=== PATIENT | male | born 1945 | race African-American/Black ===

== ENCOUNTER 2024-11-13 09:52 | Outpatient (REF) | payer OTHER, SELFPAY ==
--- OUTSIDE RECORDS SUMMARY | 2024-11-13 10:35 | XMS_ITS | Encounter Summary ---
Author Organization [employer] Address [address] [place] [address] Care Team Providers Care Retort Furnace Operator Name Role Phone Pastora Salazar DO Primary Care Provider [phone] Encounter Details Date Type Department Care Team (Latest Contact Info) Description 11/13/2024 Travel Social History Tobacco Use Types Packs/Day Years Used Date Smoking Tobacco: Never Smokeless Tobacco: Never Alcohol Use Standard Drinks/Week Comments Never 0 (1 standard drink = 0.6 oz pur e alcohol) Depression Answer Date Recorded Patient Health Questionnaire-9 Score 5 11/13/2024 Patient Health Questionnaire-9 Score 5 11/13/2024 Last PHQ-9: Questionnaire Data Not on file 0 11/13/2024 Housing Stability Answer Date Recorded What is your housing situation today? I have marino guadalupe 11/04/[address] you li ve. Do you have problems with any of the following? Pests such as bugs, ants, or mice 11/04/2024 Food Insecurity Answer Date Recorded Within the past 12 months, y ou worried that your food would run out before you got money to buy more: Often true 11/04/2024 Within the past 12 months,th e food you bought just didn't last and you didn't have enough money to get more: Often true Transportation Answer Date Recorded In the past 12 months, has l ack of transportation kept you from medical appts, meetings, work or from getting things needed for daily living? No 11/04/2024 Utilities Answer Date Recorded In the past 12 months, has t he electric, gas, oil or water company threatened to shut off services in your home? No 11/04/2024 Depression Answer Date Recorded Patient Health Questionnaire-2 Score 2 11/13/2024 Internet Access Answer Date Recorded Internet Access Q1 Yes 11/04/2024 Internet Access Q2 Not on file 11/04/2024 Comments Unknown Sex and Gender Information Value Date Recorded Sex Assigned at Unknown 11/12/2024 8:12 AM EDT Legal Sex Male 3:20 PM EDT Gender Identity Male 11/13/2024 9:06 AM EDT Sexual Orientation Don't know 11/13/2024 9: 06 AM EDT Sexual Orientation Straight 11/13/2024 9: 06 AM EDT documented as of this encounter Functional Status * Over the past 2 weeks, how often have you been bothered by any of the following problems? Question Answer Date of Assessment Author Patient Health Questionnaire -2 Score 2 11/13/2024 9:09 AM EDT Prsica Fernandez MA * Little interest or pleasure in doing things Answer Date of Assessment Author Several days 11/13/2024 9:09 AM EDT Abi Fernandez MA * Feeling down, depressed, or hopeless Answer Date of Assessment Author Several days 11/13/2024 9:09 AM MICHELLT Abi Fernandez MA * Trouble falling or staying asleep, or sleeping too much Answer Date of Assessment Author Not at all 11/13/2024 9:09 AM Abi Hsu MA * Feeling tired or having little energy Answer Date of Assessment Author Several days 11/13/2024 9:09 AM Abi Hsu MA * Poor appetite or overeating Answer Date of Assessment Author Not at all 11/13/2024 9:09 AM Abi Hsu MA * Feeling bad about yourself - or that you are a failure or have let yourself or your family down Answer Date of Assessment Author Not at all 11/13/2024 9:09 AM Abi Hsu MA * Trouble concentrating on things, such as reading the newspaper or watching television Answer Date of Assessment Author Several days 11/13/2024 9:09 AM Abi Hsu MA * Moving or speaking so slowly that other people could have noticed? Or the opposite - being so fidgety or restless that you have been moving around a lot more than usual. Answer Date of Assessment Author Several days 11/13/2024 9:09 AM EDT Abi Fernandez MA * Thoughts that you would be better off or hurting yourself in some way Answer Date of Assessment Author Not at all 11/13/2024 9:09 AM EDT Abi Fernandez MA * Patient Health Questionnaire-9 Score Answer Date of Assessment Author 5 11/13/2024 9:09 AM EDT Abi Fernandez MA * How difficult have these problems made it for you to do your work, take care of things at home, or get along with other people? Answer Date of Assessment Author Not difficult at all 11/13/2024 9:09 AM EDT Prisca Vick MA * Over the last 2 weeks, how often have you been bothered by any of the following problems? Question Answer Date of Assessment Author Feeling nervous, anxious, or on edge 1 11/13/2024 9:09 AM EDT Prisca Fernandez MA Not being able to stop or co ntrol worrying 0 11/13/2024 9:09 AM EDT Prisca Fernandez MA Worrying too much about diff erent things 1 11/13/2024 9:09 AM MICHELLT Prisca Fernandez MA Trouble relaxing 0 11/13/2024 9:09 AM EDT Prisca Hubbard MA Being so restless that it is hard to sit still 0 11/13/2024 9:09 AM MICHELLT Prisca Fernandez MA Becoming easily annoyed or irritable 0 11/13/2024 9:09 AM EDT Prisca Fernandez MA Feeling afraid as if somethi ng awful might happen 0 11/13/2024 9:09 AM MICHELLT Prisca Fernandez MA CYNTHIA-7 Total Score 2 11/13/2024 9:09 AM MICHELLT Prisca Fernandez MA documented as of this encounter Plan of Treatment Not on file documented as of this encounter Visit Diagnoses Not on filedocumented in this encounter Additional Health Concerns Assessment Noted Time PHQ-9 Depression Total Score: 5 11/14/19 25 9:09 AM EDT documented as of this encounter Care Teams Retort Furnace Operator Relationship Specialty Start Date End Date Pastora Salazar DO [address] [place] [id number] PCP - General Family Medicine 11/13/24 documented as of this encounter
--- OUTSIDE RECORDS SUMMARY | 2024-11-13 10:35 | XMS_ITS | Clinical Summary ---
Author Organization [facility] Address [address] [place] [address] Phone Care Team Providers Care Retail Greeting Card Merchandiser Name Role Phone Aubrie Simmons MD Primary Care Provider [phone] Allergies No known active allergies Medications aspirin 81 mg EC tablet Take 1 tablet (81 mg total) by mouth daily. Active atorvastatin (LIPITOR) 80 mg tablet Take 1 tablet (80 mg total) by mouth at bedtime. 12/21/19 22 Active Trulicity 0.75 mg/0.5 mL pen injector injection Inject 0.5 mL (0.75 mg total) under the skin 1 (one) time per week. 03/13/20 24 Active metFORMIN (GLUCOPHAGE) 1,000 mg tablet Take 1 tablet (1,000 mg total) by mouth 1 (one) time each day with breakfast. TAKE 1000 MG IN THE MORNING WITH BREAKFAST AND 500 MG IN THE EVENING WITH DINNER 01/20/20 24 Active mirtazapine (REMERON) 15 mg tablet Take 1 tablet (15 mg total) by mouth at bedtime. 01/28/20 24 Active ferrous sulfate 325 mg (65 mg iron) EC tablet Take 1 tablet (325 mg total) by mouth 1 (one) time each day with breakfast. Do not crush, chew, or split. 90 each 1 06/10/19 25 026 Active amLODIPine (NORVASC) 5 mg tablet Take 2 tablets (10 mg total) by mouth 1 (one) time each day. 180 each 3 06/10/19 25 026 Active carvediloL (COREG) 3.125 mg tablet Take 2 tablets (6.25 mg total) by mouth 2 (two) times a day with meals. 180 each 1 11/13/19 25 026 Active metFORMIN (GLUCOPHAGE) 500 mg tablet Take 1 tablet (500 mg total) by mouth 1 (one) time each day in the evening. 025 Discontinued ibuprofen (ADVIL,MOTRIN) 200 mg tablet Take 1 tablet (200 mg total) by mouth every 6 (six) hours if needed. 025 Discontinued carvediloL (COREG) 3.125 mg tablet Take 1 tablet (3.125 mg total) by mouth 2 (two) times a day with meals. 180 each 1 09/10/19 25 025 Discontinued Active Problems Problem Noted Date Diagnosed Date Acute kidney injury superimposed on CKD ([facility] V24) 04/18/2024 Chest pain 04/04/2024 Assessment & Plan (04/05/2024 5:45 PM EST): Patient has a history of coronary disease however, this pain sounds fairly atypical. I have lower suspicion that this is truly cardiac in nature however given his history I think it is reasonable to keep him for definitive inpatient stress testing on Monday. If he continues to have more severe episodes till then, you could consider further investigation with diagnostic cath. As previously mentioned, ECG showed evidence of the old IL but no acute changes. It is especially reassuring that he has had 2 negative high-sensitivity troponins. In reviewing his history, it almost sounds as though this may be a presentation of a migraine more than anything. If cardiac testing is negative, could consider neurology referral as an outpatient for headache management. Chronic coronary artery disease 04/04/2024 Overview (06/10/2024): - ST elevation IL apparently in 2019; 80% distal left circumflex stenosis noted on cardiac cath in 2019 in the [place] - Repeat cath performed in 2020 at [facility] showing no changes -Recent hospitalization at [facility] in late March into early April where Dr Jones saw him in consultation. He ruled out with serial cardiac enzymes. -Status post inpatient restratification pharmacologic nuclear stress test showed normal myocardial perfusion without evidence of ischemia or infarction, normal left ventricular systolic function and regional wall motion with an ejection fraction of 65% -Echocardiogram during that hospitalization on 04/05/2024 showed mild, concentric left ventricular hypertrophy with normal cavity size and systolic function, normal regional wall motion with an ejection fraction of 60 to 65%, normal RV size and systolic function, no hemodynamically significant valve disease -On 05/2024 the patient underwent carotid ultrasounds. In the right there is arthrosclerotic plaque in the carotid system. But there is less than 50% stenosis in the internal carotid artery based on Doppler. The subclavian artery has normal Doppler flow. The vertebral artery has normal Doppler antegrade flow. On the left there is arthrosclerotic plaque in the carotid system as noted above. There is less than 50% stenosis in the internal carotid artery based on Doppler. The subclavian artery has normal Doppler flow pattern. The vertebral artery has normal antegrade flow. Assessment & Plan (09/09/2024 9:37 AM EDT): Patient should continue on baby aspirin, high dose of atorvastatin, low-dose beta-vero. Instructed to call 911 or go to the emergency room should the patient begin to experience chest pain or pressure lasting greater than 10 minutes does not resolve with rest. Assessment & Plan (06/10/2024 8:29 AM EST): Patient should continue on baby aspirin, high dose of atorvastatin, low-dose beta-vero. Instructed to call 911 or go to the emergency room should the patient begin to experience chest pain or pressure lasting greater than 10 minutes does not resolve with rest. Orders: CBC and differential; Future Basic metabolic panel; Future Assessment & Plan (05/06/2024 5:54 PM EST): Recent stress testing in the hospital was very reassuring. As such, we will not pursue any further testing. Patient is not having anginal symptoms with his usual activities. Medication adjustments as above. Continue high-dose statin, aspirin. Assessment & Plan (04/05/2024 5:44 PM EST): Agree with inpatient pharmacologic nuclear stress test. Will plan to do an echocardiogram to assess wall motion and EF on Monday. For now, continue aspirin, high-dose statin, Imdur, carvedilol at current doses. Essential hypertension 04/04/2024 Assessment & Plan (09/09/2024 9:37 AM EDT): Blood pressure is well-controlled the appointment today. I want him to continue taking measurements at home as he continues to have orthostatic hypotension. Assessment & Plan (06/10/2024 8:29 AM EST): I am going to be reducing the patient's carvedilol dosage down to 6.25 mg p.o. twice daily. I am going to be increasing the amlodipine dosage from 5 mg to 10 mg p.o. daily. I would like the patient to take blood pressure measurements at home record them and get back to the office. If patient still hypertensive can look to add in valsartan. Educated on the importance of diet lifestyle to help further assist in reducing blood pressure. The patient was encouraged to follow low-salt low-fat diet, make purposeful strides towards weight loss, and engage in routine aerobic exercise as tolerated. Orders: CBC and differential; Future Basic metabolic panel; Future Assessment & Plan (05/06/2024 5:54 PM EST): See management above. Assessment & Plan (04/05/2024 5:45 PM EST): Reasonably controlled and frankly may have to have more liberal targets in light of coexisting orthostasis. Consider use of compression stockings upon discharge. Hyperlipidemia 04/04/2024 Assessment & Plan (09/09/2024 9:37 AM EDT): Continue on statin. Updating a lipid panel. Orders: Lipid panel; Future Orthostatic hypotension 04/04/2024 Assessment & Plan (09/09/2024 9:37 AM EDT): Reducing carvedilol down to 3.125 mg p.o. twice daily. I would like the patient to continue to stay hydrated, focus on lower body exercises, utilize compression stockings, and change positions slowly. Assessment & Plan (06/10/2024 8:29 AM EST): Instructed patient to continue to utilize compression stockings as he has. Do some lower body exercises he is able to tolerate. Going to be reducing the carvedilol dosage down to 6.25 mg p.o. daily, will also increase the amlodipine from 5 to 10 mg p.o. daily. In addition the patient is anemic, I am going to be start him on ferrous sulfate 325 mg tablet, with a CBC drawn in 2 months. Orders: CBC and differential; Future Basic metabolic panel; Future Assessment & Plan (05/06/2024 5:54 PM EST): Associated as well with supine hypertension. Again, I took time to reset expectations. Unfortunately, I explained that this condition is quite common in the elderly-especially those with a history of diabetes and supine hypertension. Furthermore, it can be incredibly difficult to treat given that we are stuck between 2 opposite extremes. My goal is to avoid extremes on either end. It is unclear why most recent hospital medication changes were made. Typically the agents that are best tolerated with orthostasis are calcium channel blockers and ARB's. Unfortunately, these were the 2 agents that were discontinued while keeping Imdur and carvedilol which can often exacerbate orthostasis. I would like to try to get him on the previous agents that he was on. I am discontinuing Imdur and starting him back on amlodipine 5 mg daily. I recommended that he and his son check his blood pressure in a resting state every day but at different times in the day. I also recommended very slow postural changes, ongoing use of compression socks and stockings. We will set him up for a very close follow-up at which point the goal will be to back down on carvedilol while simultaneously reinitiating valsartan depending on how his blood pressures and symptoms do. Assessment & Plan (04/05/2024 5:44 PM EST): Longstanding issue. I tried to set the expectation that we may not be able to fix this this hospitalization but will certainly try. Would obtain a set of orthostatic vital signs in the patient. If positive, we will need to make adjustments to his outpatient regimen. Type 2 diabetes mellitus ([facility] V24, [facility] V 28) 12/20/2017 Overview (04/04/2024): [12/20/2017] (E11.9) DIABETES MELLITUS, TYPE 2 Gastroesophageal reflux disease 03/14/2016 Overview (04/04/2024): [03/14/2016] (K21.9) GERD Resolved Problems Problem Noted Date Diagnosed Date Resolved Date Acute ST segment elevation m yocardial infarction (CMS/HCC V24, CMS/HCC V28) 03/01/2019 Overview (04/04/2024): [03/01/2019] (I21.3) Acute STEMI Systolic murmur 03/14/2016 04/05/2024 Overview (04/04/2024): [03/14/2016] (I38) Systolic murmur Encounters Date Type Department Care Team Description 11/12/2024 Telephone [facility] [address] [place] [id number] Mukund Garcia NP Fatigue (Son is calling on behalf of pt due to language barrier ) 11/06/2024 1:21 PM EDT - 11/06/2024 6:07 PM EDT Emergency [facility] [address] [place] [id number] Taras Le MD Chest pain, unspecified type (Primary Dx) Discharge Disposition: Home or Self Care 09/09/2024 7:40 AM EDT Office Visit [facility] [address] [place] [phone] Mukund Garcia NP Chronic coronary artery disease (Primary Dx); Essential hypertension; Hyperlipidemia, unspecified hyperlipidemia type; Orthostatic hypotension from Last 3 Months Surgical History Surgery Date Site/Laterality Comments RIGHT COLECTOMY Medical History Medical History Date Comments Acute ST segment elevation m yocardial infarction (CMS/HCC V24, CMS/HCC V28) 03/01/2019 [03/01/2019] (I2 1.3) Acute STEMI Chronic coronary artery disease 04/04/2024 80% distal LCx stenosis noted on cath in 2019 in the [place]. Similar findings noted on cath at [facility] in 2020 Essential hypertension 04/04/2024 Gastroesophageal reflux disease 03/14/2016 [03/14/2016] (K21.9) GERD Hyperlipidemia 04/04/2024 Orthostatic hypotension 04/04/2024 Systolic murmur 03/14/2016 [03/14/2016] (I3 8) Systolic murmur Type 2 diabetes mellitus (CM S/HCC V24, CMS/HCC V28) 12/20/2017 [12/20/2017] (E11.9) DIABETE S MELLITUS, TYPE 2 Family History Medical History Relation Name Comments Heart disease Neg Hx Social History Tobacco Use Types Packs/Day Years Used Date Smoking Tobacco: Never Smokeless Tobacco: Never Tobacco Cessation:Counseling Given: Not Answered Alcohol Use Standard Drinks/Week Comments Not Currently 0 (1 standard drink = 0.6 oz pur e alcohol) Interpersonal Safety Answer Date Record ed Physical Abuse 04/18/2024 Verbal Abuse 04/18/2024 Sex and Gender Information Value Date Recorded Sex Assigned at Male 04/04/2024 7:44 PM EST Legal Sex Male 4:35 PM EST Gender Identity Male 04/04/2024 7:44 PM EST Sexual Orientation Straight 04/04/2024 7: 44 PM EST Obstetrics History Last Filed Vital Signs Vital Sign Reading Time Taken Comments Blood Pressure 126/83 11/06/2024 12:38 PM EDT Pulse 95 11/06/2024 12:38 PM EDT Temperature 36.5 C (97.7 F) 11/06/2024 12:38 PM EDT Respiratory Rate 16 11/06/2024 12:38 PM EDT Oxygen Saturation 99% 11/06/2024 12:38 PM EDT Inhaled Oxygen Concentration - - Weight 83.9 kg (185 lb) 11/06/2024 12:38 PM EDT Height 167.6 cm (5' 6 ) 11/06/2024 12:38 PM EDT Body Mass Index 29.86 11/06/2024 12:38 PM EDT Plan of Treatment Upcoming Encounters Date Type Department Care Team (Late st Contact Info) Description 12/19/2024 9:40 AM EDT Office Visit [facility] [address] [place] [address] Mukund Garcia NP [address] [place] [address] Health Maintenance Due Date Last Done Comments Diabetes: Annual Foot Exam 1955 Diabetes: Annual Retina Eye Exam 1955 Zoster Vaccines (1 of 2) 01/31/1964 DTaP,Tdap,and Td Vaccines (2 - Td or Tdap) 01/21/2019 01/21/2009 RSV Immunization Adult Patients (1 - 1-dose 75+ series) 01/31/2020 COVID-19 Vaccine ( - season) 2024 04/20/2022, 04/07/2021, 07/08/2020, Additional history exists Depression Screening 04/04/2024 Diabetes: Annual Urine Albumin-Creatinine Ratio (uACR) 04/04/2024 Hepatitis C Screening 04/04/2024 Medicare Annual Wellness Visit 04/04/2024 Social Influencers of Health Screening 04/04/2024 Diabetes: Blood Sugar Control Test (HGBA1C) 10/02/2024 04/04/2024 Influenza Vaccine (#1) 2025 , 02/16/2021, 03/27/2020, Additional history exists Falls Risk Assessment 04/20/2025 04/20/2024 Diabetes: Annual GFR (Glomerular Filtration Rate) 11/06/2025 11/06/2024, 06/20/2024, 04/20/2024, Additional history exists Hypertension/CHF/CAD Annual BMP Blood Test 11/06/2025 11/06/2024, 06/20/2024, 04/20/2024, Additional history exists Cholesterol Screening (Lipid Panel) 04/05/2029 04/05/2024 Pneumococcal Vaccine: 50+ Years Completed 04/06/2015, 03/01/2010 Hepatitis B Vaccines Completed 02/23/2016, 10/02/2015, 02/11/2015 HIB Vaccines Aged Out No longer eligi ble based on patient's age to complete this topic HPV Vaccines Aged Out No longer eligi ble based on patient's age to complete this topic Hepatitis A Vaccines Aged Out No long er eligible based on patient's age to complete this topic IPV Vaccines Aged Out No longer eligi ble based on patient's age to complete this topic MMR Vaccines Aged Out No longer eligi ble based on patient's age to complete this topic Meningococcal ACWY Vaccine Aged Out N o longer eligible based on patient's age to complete this topic Meningococcal B Vaccine Aged Out No l onger eligible based on patient's age to complete this topic RSV Immunization Patients Under 20 months Aged Out No longer eligible based on patient's age to complete this topic Varicella Vaccines Aged Out No longer eligible based on patient's age to complete this topic Procedures Procedure Name Priority Date/Time Associated Diagnosis Comments ECG ANNOTATED 11/07/2024 ECG ANNOTATED 11/07/2024 HUA URINE CULTURE TUBE STAT 11/06/2024 2:50 PM EDT URINALYSIS WITH REFLEX MICROSCOPIC AND CULTURE STAT 11/06/2024 2:50 PM EDT URINALYSIS WITH REFLEX MICROSCOPIC AND CULTURE STAT 11/06/2024 2:[address] ANGIO CHEST/ABDOMEN/PELVIS WO AND/OR W CONTRAST STAT 11/06/2024 2:39 PM EDT Chest pain, unspecified type CT HEAD WO CONTRAST STAT 11/06/2024 2 :39 PM EDT TROPONIN I HIGH SENSITIVITY STAT 11/06/2024 2:21 PM EDT ECG 12-LEAD STAT 11/06/2024 2:00 PM EDT XR CHEST 2 VIEWS STAT 11/06/2024 1:52 PM EDT CBC WITH AUTO DIFFERENTIAL STAT 11/06/2024 12:58 PM EDT B-TYPE NATRIURETIC PEPTIDE STAT 11/06/2024 12:58 PM EDT MAGNESIUM STAT 11/06/2024 12:58 PM EDT LIPASE STAT 11/06/2024 12:58 PM EDT COMPREHENSIVE METABOLIC PANEL STAT 11/06/2024 12:58 PM EDT CBC AND DIFFERENTIAL STAT 11/06/2024 12:58 PM EDT TROPONIN I HIGH SENSITIVITY STAT 11/06/2024 12:58 PM EDT ECG 12-LEAD STAT 11/06/2024 12:54 PM EDT LIPID PANEL WITH REFLEX TO DIRECT LDL Routine 04/05/2024 5:04 AM EST HEMOGLOBIN A1C Add-On 04/04/2024 4:59 PM EST from Last 3 Months or Most Recently Relevant to Health Maintenance Results * ECG-Annotated (11/07/2024) Only the most recent of2 resultswithin the time period is included. us Provider Onbase MD ECG ORDERABLES Final Result * Urinalysis with reflex microscopic and culture (11/06/2024 2:50 PM EDT) Specific [place] Urine 1.013 1.003 - 1.030 LAB URINALYSIS - AUTOMATED METHOD 11/06/2024 3:[address] [facility] pH, Urine 6.0 5.0 - 8.0 pH LAB URINALYSIS - AUTOMATED METHOD 11/06/2024 3:[address] [facility] Leukocytes, Urine Negative Negative LAB URINALYSIS - AUTOMATED METHOD 11/06/2024 3:[address] [facility] Nitrite, Urine Negative Negative LAB URINALYSIS - AUTOMATED METHOD 11/06/2024 3:[address] [facility] Protein, Urine Negative <=Trace mg/dL LAB URINALYSIS - AUTOMATED METHOD 11/06/2024 3:[address] [facility] Glucose, Urine Negative Negative mg/dL LAB URINALYSIS - AUTOMATED METHOD 11/06/2024 3:[address] [facility] Ketones, Urine Negative Negative mg/dL LAB URINALYSIS - AUTOMATED METHOD 11/06/2024 3:[address] [facility] Urobilinogen, Urine 0.2 0.2 - 1.0 mg/dL LAB URINALYSIS - AUTOMATED METHOD 11/06/2024 3:[address] [facility] Bilirubin, Urine Negative Negative LAB URINALYSIS - AUTOMATED METHOD 11/06/2024 3:[address] [facility] Blood, Urine Negative Negative LAB URINALYSIS - AUTOMATED METHOD 11/06/2024 3:[address] [facility] Urine Urine specimen obtained by clean catch procedure / Unknown Non-blood Collection / Unknown 11/06/2024 2:50 PM EDT 11/06/2024 3:09 PM EDT us Tarasazar Le MD LAB URINE ORDERABLES Final Resu lt Performing Organization Address City/[facility]/ZIP Co de Phone Number [facility] [address] [place] [address], [place] [phone] * Hua urine culture tube (11/06/2024 2:50 PM EDT) Extra Tube Hold for add-ons. 11/06/2024 5:[address] [facility] Comment:Auto resulted. Urine Urine specimen obtained by clean catch procedure / Unknown Non-blood Collection / Unknown 11/06/2024 2:50 PM EDT 11/06/2024 3:09 PM EDT us Tarasazar Le MD LAB URINE ORDERABLES Final Resu lt Performing Organization Address [facility]/ZIP Co de Phone Number [facility] [address] [place], [place] [id number] [phone] * CT Angio Chest/Abdomen/Pelvis wo and/or w Contrast (11/06/2024 2:39 PM EDT) Anatomical Region Laterality Modality Body Computed Tomogra phy 11/06/2024 3:00 PM EDT Impressions 11/06/2024 3:11 PM EDT Impression: No aortic dissection. Incidental findings as above. -------- FINAL REPORT -------- Dictated By: Lainey Boykin Dictated Date: 11/06/2024 15:00 ET Assigned Physician: Lainey Boykin Reviewed and Electronically Signed By: Lainey Boykin Signed Date: 11/06/2024 15:11 ET Workstation ID: [id number] Transcribed By: Self Edit Transcribed Date: 11/06/2024 15:00 ET Narrative 11/06/2024 3:[address] angiography abdomen and pelvis INDICATION: Abdominal pain, aortic dissection suspected Comparison: None TECHNIQUE: CT angiography of the abdomen and pelvis following the intravenous administration of 100cc Isovue 370. Multiplanar reformats. The examination was performed utilizing dose reduction techniques. Total DLP 3178 Vasculature: Atherosclerotic plaque throughout the aorta and branch vessels but no evidence of arterial occlusion, dissection or aneurysm. Nonvascular findings: CHEST: Minimal atelectasis. No consolidation or effusion. Extensive coronary artery calcifications. No mediastinal mass. Spleen: Normal. Pancreas: Normal. Liver: Few tiny foci enhancement are nonspecific and could represent either perfusion anomalies or flash filling hemangiomas. Gallbladder/biliary: Normal. Adrenals: Normal. Kidneys: Normal. Bowel/mesentery: There is equalization of small bowel loops presumably related to stasis. Postsurgical changes of the right colon. Scattered diverticulosis without evidence for acute diverticulitis. Lymph nodes: No pathologically enlarged lymph nodes. Bladder: Mild bladder distention. Pelvic organs: Mild prostatomegaly. Osseous structures: Remote sternal fracture. Degenerative changes. Remote rib deformities. Soft Tissues: Unremarkable Procedure Note Lainey Boykin MD - 11/06/2024 CT angiography abdomen and pelvis INDICATION: Abdominal pain, aortic dissection suspected Comparison: None TECHNIQUE: CT angiography of the abdomen and pelvis following theintravenous administration of 100cc Isovue 370. Multiplanar reformats. Theexamination was performed utilizing dose reduction techniques. Total [id number] Vasculature: Atherosclerotic plaque throughout the aorta and branch vessels but noevidence of arterial occlusion, dissection or aneurysm. Nonvascular findings: CHEST: Minimal atelectasis. No consolidation or effusion. Extensivecoronary artery calcifications. No mediastinal mass. Spleen: Normal. Pancreas: Normal. Liver: Few tiny foci enhancement are nonspecific and could representeither perfusion anomalies or flash filling hemangiomas. Gallbladder/biliary: Normal. Adrenals: Normal. Kidneys: Normal. Bowel/mesentery: There is equalization of small bowel loops presumablyrelated to stasis. Postsurgical changes of the right colon. Scattereddiverticulosis without evidence for acute diverticulitis. Lymph nodes: No pathologically enlarged lymph nodes. Bladder: Mild bladder distention. Pelvic organs: Mild prostatomegaly. Osseous structures: Remote sternal fracture. Degenerative changes.Remote rib deformities. Soft Tissues: Unremarkable IMPRESSION: Impression: No aortic dissection. Incidental findings as above. -------- FINAL REPORT -------- Dictated By: Lainey Boykin Dictated Date: 11/06/2024 15:00 ET Assigned Physician: Lainey Boykin Reviewed and Electronically Signed By: Lainey Boykin Signed Date: 11/06/2024 15:11 ET Workstation ID: [id number] Transcribed By: Self Edit Transcribed Date: 11/06/2024 15:00 ET Taras Le MD IMNuha CT PROCEDURES Final Result * CT Head wo Contrast (11/06/2024 2:39 PM EDT) Anatomical Region Laterality Modality Head and Neck Computed Tomogra phy 11/06/2024 2:4 6 PM EDT Impressions 11/06/2024 3:00 PM EDT NO ACUTE INTRACRANIAL ABNORMALITY. -------- FINAL REPORT -------- Dictated By: Lainey Boykin Dictated Date: 11/06/2024 14:46 ET Assigned Physician: Lainey Boykin Reviewed and Electronically Signed By: Lainey Boykin Signed Date: 11/06/2024 15:00 ET Workstation ID: [id number] Transcribed By: Self Edit Transcribed Date: 11/06/2024 14:55 ET Narrative 11/06/2024 3:00 PM EDT PROCEDURE: HEAD CT INDICATION: Mental status change, unknown cause TECHNIQUE: CT of the head without intravenous contrast. Multiplanar reformats. The examination was performed utilizing dose reduction techniques. Total DLP 3178 COMPARISON: 06/21/2019 FINDINGS: No acute territorial infarct, mass effect, or intracranial hemorrhage. Moderate scattered periventricular and subcortical white matter hypodensities are most likely related to chronic small vessel ischemic change. CSF spaces commensurate for degree of volume loss. No hydrocephalus. Visualized paranasal sinuses are clear. Mastoid air cells are clear. No calvarial fracture. Procedure Note Lainey Boykin MD - 11/06/2024 PROCEDURE: HEAD CT INDICATION: Mental status change, unknown cause TECHNIQUE: CT of the head without intravenous contrast. Multiplanarreformats. The examination was performed utilizing dose reductiontechniques. Total DLP 3178 COMPARISON: 06/21/2019 FINDINGS: No acute territorial infarct, mass effect, or intracranial hemorrhage. Moderate scattered periventricular and subcortical white matterhypodensities are most likely related to chronic small vessel ischemicchange. CSF spaces commensurate for degree of volume loss. No hydrocephalus. Visualized paranasal sinuses are clear. Mastoid air cells are clear. No calvarial fracture. IMPRESSION: NO ACUTE INTRACRANIAL ABNORMALITY. -------- FINAL REPORT -------- Dictated By: Lainey Boykin Dictated Date: 11/06/2024 14:46 ET Assigned Physician: Lainey Boykin Reviewed and Electronically Signed By: Lainey Boykin Signed Date: 11/06/2024 15:00 ET Workstation ID: [id number] Transcribed By: Self Edit Transcribed Date: 11/06/2024 14:55 ET Taras Le MD [facility] PROCEDURES Final Result * Troponin I high sensitivity (11/06/2024 2:21 PM EDT) Only the most recent of2 resultswithin the time period is included. High Sensitivity Troponin I 6 <=79 ng/L LAB CHEMISTRY METHOD 11/06/2024 3:[address] [facility] Blood Venous blood specimen / Unknown Venipuncture / Unknown 11/06/2024 2:21 PM EDT 11/06/2024 3:10 PM EDT Narrative [facility] ([facility]) [facility] - 11/06/2024 3:54 PM EDT High levels of biotin in samples may falsely decrease hsTroponin values. Use caution when interpreting hsTroponin results in patients taking biotin who exhibit renal impairment (eGFR <60) or in patients taking more than 20 mg/day of biotin. Tarasazar Le MD LAB BLOOD ORDERABLES Final Resu lt [facility]) [facility] [address] [place] [address], [place] [phone] * ECG 12 lead (11/06/2024 2:00 PM EDT) Only the most recent of2 resultswithin the time period is included. Ventricular Rate ECG 87 BPM GEMUSE Atrial Rate 87 BPM GEMUSE P-R Interval 212 ms GEMUSE QRS Duration 80 ms GEMUSE Q-T Interval 350 ms GEMUSE QTc 421 ms GEMUSE P Wave [place] 31 degrees GEMUSE T [place] 28 degrees GEMUSE ECG Interpretation Sinus rhythm with 1st degree A-V block Inferior infarct , age undetermined When compared with ECG of 06-NOV-2024 12:54, (unconfirmed) Inferior infarct is now Present Confirmed by MEENU MONZON ([id number]) on 11/07/2024 5:40:25 AM GEMUSE 11/06/2024 2:00 PM EDT 11/07/2024 5:40 AM EDT Taras B Rey [facility] ECG ORDERABLES Final Result GEMUSE * XR Chest 2 Views (11/06/2024 1:52 PM EDT) Anatomical Region Laterality Modality Body Radiographic Suze ging 11/06/2024 2:35 PM EDT Impressions 11/06/2024 2:36 PM EDT FINDINGS/IMPRESSION: Presumed left basilar atelectasis/scarring. No consolidation or effusion. Degenerative osseous changes and remote left clavicle fracture. -------- FINAL REPORT -------- Dictated By: Lainey Boykin Dictated Date: 11/06/2024 14:35 ET Assigned Physician: Lainey Boykin Reviewed and Electronically Signed By: Lainey Byokin Signed Date: 11/06/2024 14:36 ET Workstation ID: [id number] Transcribed By: Self Edit Transcribed Date: 11/06/2024 14:35 ET Narrative 11/06/2024 2:36 PM EDT XR CHEST 2 VIEWS INDICATION: chest pain TECHNIQUE: XR CHEST 2 VIEWS COMPARISON: No priors available. Procedure Note Lainey Boykin MD - 11/06/2024 XR CHEST 2 VIEWS INDICATION: chest pain TECHNIQUE: XR CHEST 2 VIEWS COMPARISON: No priors available. IMPRESSION: FINDINGS/IMPRESSION: Presumed left basilar atelectasis/scarring. Noconsolidation or effusion. Degenerative osseous changes and remote leftclavicle fracture. -------- FINAL REPORT -------- Dictated By: Lainey Boykin Dictated Date: 11/06/2024 14:35 ET Assigned Physician: Lainey Boykin Reviewed and Electronically Signed By: Lainey Boykin Signed Date: 11/06/2024 14:36 ET Workstation ID: [id number] Transcribed By: Self Edit Transcribed Date: 11/06/2024 14:35 ET Taras Le MD IMG XR PROCEDURES Final Result * (ABNORMAL) CBC auto differential (11/06/2024 12:58 PM EDT) WBC 11.7(H) 4.8 - 10.8 K/[facility] LAB HEMETOLOGY METHOD 11/06/2024 1:[address] [facility] RBC 3.80(L) 4.50 - 5.50 M/[facility] LAB HEMETOLOGY METHOD 11/06/2024 1:[address] [facility] Hemoglobin 11.2(L) 13.5 - 17.5 g/dL LAB HEMETOLOGY METHOD 11/06/2024 1:[address] [facility] Hematocrit 34.6(L) 42.0 - 54.0 % LAB [facility]OLOG[facility] MCV 90.3 79.0 - 98.0 [place] LAB HEMETOLOGY METHOD [facility] MCH 29.2 27.0 - 32.0 pcg LAB HEMETOLOGY METHOD 11/06/2024 1:28 PM [facility] MCHC 32.4 32.0 - 37.0 g/dL LAB HEMETOLOGY METHOD 11/06/2024 1:28 PM [facility] RDW 13.2 11.0 - 15.0 % LAB HEMETOLOGY METHOD 11/06/2024 1:28 PM [facility] Platelets 364 130 - 400 K/mcL LAB HEMETOLOGY METHOD 11/06/2024 1:28 PM [facility] MPV 9.4 7.0 - 11.0 FL LAB HEMETOLOGY METHOD 11/06/2024 1:28 PM [facility] NRBC 0.0 <1.0 % LAB HEMETOLOGY METHOD 11/06/2024 1:28 PM [facility] NRBC Absolute 0.00 <0.10 K/mcL LAB HEMETOLOGY METHOD 11/06/2024 1:28 PM [facility] Neutrophils Relative 66.7 % LAB HEMETOLOGY METHOD [facility] Lymphocytes Relative 22.7 % LAB HEMETOLOGY METHOD 11/06/2024 1:28 PM [facility] Monocytes Relative 7.6 % LAB HEMETOLOGY METHOD 11/06/2024 1:[address] [facility] Eosinophils Relative 1.7 % LAB HEMETOLOGY METHOD 11/06/2024 1:[address] [facility] Basophils Relative 0.6 % LAB HEMETOLOGY METHOD 11/06/2024 1:[address] [facility] Immature Granulocytes Relative 0.7 % LAB HEMETOLOGY METHOD 11/06/2024 1:[address] [facility] Neutrophils Absolute 7.80(H) 1.50 - 7.00 K/mcL LAB HEMETOLOGY METHOD 11/06/2024 1:[address] [facility] Lymphocytes Absolute 2.65 1.00 - 5.00 K/mcL LAB HEMETOLOGY METHOD 11/06/2024 1:[address] [facility] Monocytes Absolute 0.89 0.20 - 1.00 K/mcL LAB HEMETOLOGY METHOD 11/06/2024 1:[address] [facility] Eosinophils Absolute 0.20 0.00 - 0.50 K/mcL LAB HEMETOLOGY METHOD 11/06/2024 1:[address] [facility] Basophils Absolute 0.07 0.00 - 0.20 K/mcL LAB HEMETOLOGY METHOD 11/06/2024 1:[address] [facility] Immature Granulocytes Absolute 0.08(H) 0.00 - 0.03 K/mcL LAB HEMETOLOGY METHOD 11/06/2024 1:[address] [facility] Blood Venous blood specimen / Unknown Venipuncture / Unknown 11/06/2024 12:58 PM EDT 11/06/2024 1:23 PM EDT us Taras B Rey [facility] LAB BLOOD ORDERABLES Final Resu lt [facility] [address] [place] [address], [place] [phone] * B-type natriuretic peptide (11/06/2024 12:58 PM EDT) BNP 41 <=100 pcg/mL LAB CHEMISTRY METHOD 11/06/2024 2:[address] [facility] Blood Venous blood specimen / Unknown Venipuncture / Unknown 11/06/2024 12:58 PM EDT 11/06/2024 1:23 PM EDT us Taras Le MD LAB BLOOD ORDERABLES Final Resu lt [facility] [address] [place] [address], [place] [phone] * (ABNORMAL) Magnesium (11/06/2024 12:58 PM EDT) Magnesium 1.6(L) 1.9 - 2.6 mg/dL LAB CHEMISTRY METHOD 11/06/2024 2:[address] [facility] Blood Venous blood specimen / Unknown Venipuncture / Unknown 11/06/2024 12:58 PM EDT 11/06/2024 1:23 PM EDT us Taras Le MD LAB BLOOD ORDERABLES Final Resu lt [facility] [address] [place] [address], [place] [phone] * Lipase (11/06/2024 12:58 PM EDT) Lipase 60 13 - 75 unit/L LAB CHEMISTRY METHOD 11/06/2024 2:[address] [facility] Blood Venous blood specimen / Unknown Venipuncture / Unknown 11/06/2024 12:58 PM EDT 11/06/2024 1:23 PM EDT us Taras Paganel MD LAB BLOOD ORDERABLES Final Resu lt [facility] [address] [place] [address], * (ABNORMAL) Comprehensive metabolic panel (11/06/2024 12:58 PM EDT) Sodium 134 133 - 145 mmol/L LAB CHEMISTRY METHOD 11/06/2024 2:[address] [facility] Potassium 4.5 3.5 - 5.5 mmol/L LAB CHEMISTRY METHOD 11/06/2024 2:16 PM [facility] Chloride 99 96 - 110 mmol/L LAB CHEMISTRY METHOD 11/06/2024 2:16 PM [facility] CO2 28 21 - 32 mmol/L LAB CHEMISTRY METHOD 11/06/2024 2:[address] [facility] Anion Gap 7 3 - 11 LAB CHEMISTRY METHOD 11/06/2024 2:16 PM [facility] Glucose 167(H) 70 - 100 mg/dL LAB CHEMISTRY METHOD 11/06/2024 2:16 PM [facility] BUN 27(H) 5 - 25 mg/dL LAB CHEMISTRY METHOD 11/06/2024 2:16 PM [facility] Creatinine 1.84(H) 0.70 - 1.30 mg/dL LAB CHEMISTRY METHOD 11/06/2024 2:[address] [facility] eGFR 37(L) >=60 mL/min/1. 73m2 LAB CHEMISTRY METHOD 11/06/2024 2:16 PM [facility] Comment:Calculation based on the Chronic Kidney Disease Epidemiology Collaboration (CKD-EPI) equation refit without adjustment for race. BUN/Creatinine Ratio 14.7 LAB CHEMISTRY METHOD 11/06/2024 2:16 PM [facility] Calcium 10.0 8.5 - 10.5 mg/dL LAB CHEMISTRY METHOD 11/06/2024 2:[address] [facility] AST (SGOT) 12 10 - 42 unit/L LAB CHEMISTRY METHOD 11/06/2024 2:[address] [facility] ALT (SGPT) 22 10 - 60 unit/L LAB CHEMISTRY METHOD 11/06/2024 2:[address] [facility] Alkaline Phosphatase 81 42 - 121 unit/L LAB CHEMISTRY METHOD 11/06/2024 2:[address] [facility] Total Protein 7.0 6.0 - 8.0 g/dL LAB CHEMISTRY METHOD 11/06/2024 2:[address] [facility] Albumin 4.0 3.2 - 5.0 g/dL LAB CHEMISTRY METHOD 11/06/2024 2:16 PM [facility] Total Bilirubin 0.5 0.0 - 1.4 mg/dL LAB CHEMISTRY METHOD 11/06/2024 2:[address] [facility] Blood Venous blood specimen / Unknown Venipuncture / Unknown 11/06/2024 12:58 PM EDT 11/06/2024 1:23 PM EDT Taras Le MD LAB BLOOD ORDERABLES Final Resu lt [facility] [address] [place] [address], * (ABNORMAL) Lipid panel with reflex to direct LDL (04/05/2024 5:04 AM EST) Cholesterol 106 0 - 200 mg/dL LAB CHEMISTRY METHOD 04/05/2024 5:[address] [facility] Triglycerides 141 0 - 150 mg/dL LAB CHEMISTRY METHOD 04/05/2024 5:[address] [facility] HDL 28(L) >=40 mg/dL LAB CHEMISTRY METHOD 04/05/2024 5:[address] [facility] LDL Calculated 50 0 - 100 mg/dL LAB CHEMISTRY METHOD 04/05/2024 5:[address] [facility] VLDL Cholesterol Ziggy 28.2 mg/dL LAB CHEMISTRY METHOD 04/05/2024 5:52 AM [facility] Non HDL Chol. (LDL+VLDL) 78 <145 mg/dL LAB CHEMISTRY METHOD 04/05/2024 5:[address] [facility] Chol/HDL Ratio 3.8 0.0 - 4.4 LAB CHEMISTRY METHOD 04/05/2024 5:52 AM [facility] Blood Venous blood specimen / Unknown Venipuncture / Unknown 04/05/2024 5:04 AM EST 04/05/2024 5:25 AM EST Alycia HINDS LAB BLOOD ORDERABLES Final Re sult [facility] [address] [place] [address], [place] [phone] * (ABNORMAL) Hemoglobin A1c (04/04/2024 4:59 PM EST) Hemoglobin A1C 7.8(H) <6.5 % LAB CHEMISTRY METHOD 04/05/2024 1:[address] [facility] Mean Bld Glu Estim. 177 mg/dL LAB CHEMISTRY METHOD 04/05/2024 1:[address] [facility] Blood Venous blood specimen / Unknown Venipuncture / Unknown 04/04/2024 4:59 PM EST 04/04/2024 5:26 PM EST Jason Stevens MD LAB BLOOD ORDERABLES Final Result Performing Organization Address City/[facility]/ZIP Co de Phone Number [facility] [address] [place] [address], [place] [phone] from Last 3 Months or Most Recently Relevant to Health Maintenance Insurance MEDICARE MEDICAID - [facility] MEDICARE Member Subscriber Plan / Payer (Ef fective 2024-Present) Name:Keanu Boykin Relation to Subscriber:Self Name:Keanu Boykin Payer ID:[id number] Group ID:[id number] Type:Not on file Address: [address] [place] [id number] MEDICARE Advance Directives Documents on File Type Date Recorded Patient Referral Management Liaison Expl anation Advance Directives and Livin g Will 04/09/2024 9:37 AM Advance Directives and Livin g Will 04/05/2024 4:05 PM * Full Code - Default (Latest Code Status on File) Date Activated Date Inactivated Comments 04/18/2024 8:40 AM 04/20/2024 9:36 PM This is or bartolo is used when code status has not been discussed with the patient, or code status is otherwise unknown/unconfirmed To update the patient's code status, place a code status order. Do not modify or discontinue any currently active code status orders. * Full Code - Confirmed Date Activated Date Inactivated Comments 04/04/2024 8:40 PM 04/08/2024 9:34 PM This code s tatus was ascertained in the following way: Code status discussion: discussion with patient To update the patient's code status, place a code status order. Do not modify or discontinue any currently active code status orders. * Full Code - Default Date Activated Date Inactivated Comments 04/04/2024 7:44 PM 04/04/2024 8:40 PM This is or bartolo is used when code status has not been discussed with the patient, or code status is otherwise unknown/unconfirmed To update the patient's code status, place a code status order. Do not modify or discontinue any currently active code status orders. Care Teams Retail Greeting Card Merchandiser Relationship Specialty Start Date End Date Aubrie Simmons MD [address] [place] [phone] PCP - General Internal Medicine 05/06/24
[2024-11-13 12:13] LABS: Hemoglobin A1C 139.5085 umol/L; Total Hemoglobin (HGBA1C) 3128.9148 umol/L
[2024-11-13 12:34] LABS: Alanine Aminotransferase 20 U/L (0-40); Albumin Level 4.6 g/dL (3.5-5.0); Alkaline Phosphatase 73 U/L (39-117); Anion Gap 14 (12-20); Aspartate Amino Transferase 30 U/L (5-37); Blood Urea Nitrogen 19 mg/dL (9-16); Calcium 9.7 mg/dL (8.4-10.2); Carbon Dioxide 30 mmol/L (22-29); Chloride 102 mmol/L (96-108); Cholesterol 96 mg/dL (<200); Estimated Glomerular Filt Rate 44; HDL Cholesterol 21 mg/dL (>40); Iron 85 mcg/dL (45-160); Magnesium 1.6 mg/dL (1.6-2.6); Percent Iron Saturation 30 % (15-50); Potassium 4.5 mmol/L (3.3-5.1); Sodium 141 mmol/L (135-145); Total Iron Binding Capacity 284 mcg/dL (228-428); Total Protein 7.1 g/dL (6.5-8.0); Triglycerides 171 mg/dL (<150); Unsaturated Iron Binding 199 ug/dL
[2024-11-13 12:50] LABS: HBS Num1 731.15 mIU/mL (0-7.99); HBc Num1 2.88 S/CO (0.00-0.79); HBsAGNum1 0.34 S/CO (0.00-0.99); HIV Num 1 0.05 S/CO (0.00-0.99); Hepatitis B Surface Antigen Negative (Negative); ~HepC Num1 0.10 S/CO (0.00-0.79); ~Hepatitis B Surface Antibody REACTIVE (Nonreactive); ~Hepatitis C Antibody Nonreactive (Nonreactive)
[2024-11-13 12:54] LABS: Ferritin 19 ng/mL (20-250); Free T4 (Free Thyroxine) 0.96 ng/dL (0.71-1.85); Thyroid Stimulating Hormone 1.48 uIU/mL (0.32-4.0)
[2024-11-13 13:04] LABS: Folate 15.7 ng/mL (> or = 4.0); Vitamin B12 1695 pg/mL (200-900)
[2024-11-13 13:21] LABS: Microalbum/Creatinine Ratio Ur 114.0 ug/mg cr (<30)
[2024-11-13 13:50] LABS: HBc Num2 2.90 S/CO; HBc Num3 2.98 S/CO
[2024-11-15 07:53] LABS: CT PCR Urine NOT DETECTED (Not Detect.); NG PCR Urine NOT DETECTED (Not Detect.)
[2024-11-15 08:07] LABS: ~Hepatitis A Antibody IgG 9.76 S/CO (0.00-0.99)
== END 2024-11-13 09:53 | disposition home or self-care (01) ==
LOC: HO.HHCL 09:52
PROVIDERS: PCP Family Medicine; Visit Provider Family Medicine
DX: Z00.00 Encounter for general adult medical examination without abnormal findings (principal); E11.22 Type 2 diabetes mellitus with diabetic chronic kidney disease; I12.9 Hypertensive chronic kidney disease with stage 1 through stage 4 chronic kidney disease, or unspecified chronic kidney disease; N18.30 Chronic kidney disease, stage 3 unspecified; D63.1 Anemia in chronic kidney disease; I25.10 Atherosclerotic heart disease of native coronary artery without angina pectoris; E78.49 Other hyperlipidemia; I95.1 Orthostatic hypotension; K21.9 Gastro-esophageal reflux disease without esophagitis; R14.0 Abdominal distension (gaseous); D48.9 Neoplasm of uncertain behavior, unspecified; Z11.4 Encounter for screening for human immunodeficiency virus [HIV]; Z11.59 Encounter for screening for other viral diseases
CPT/HCPCS: 36415; 80048; 80061; 80076; 82043; 82306; 82570; 82607; 82728; 82746; 83036; 83540; 83735; 84439; 84443; 86592; 86704; 86706; 86708; 86803; 87340; 87389; 87491; 87591

== ENCOUNTER 2024-12-09 09:48 | Outpatient (AMB) | payer OTHER, SELFPAY ==
--- NOTE | 2024-12-09 09:59 | HO.NEPHOV ---
Vital Signs 12/09/24 10:06 Weight 182 lb 8 oz BP 116/70 Blood Pressure Location Lt brachial Position Sitting Pulse 95 Pulse Source Pulse Oximeter Pulse Oximetry (%) 95 Oxygen Delivery Method Room Air Intake Visit Reasons: ENP: CKD STG3-Conf w/son Associate Media Director Required: Yes Associate Media Director Language: Client Coordinator Services: Associate Media Director Present Associate Media Director Name: [id number] Information Interpreted: clinical only Accompanied by: Son Allergies No Known Allergies Allergy (Verified 12/09/24 10:05) HPI Comments Details: 79 years old male with DM, HTN, orthostatic hypotension, CAD with stent, colon surgery Here with son Keanu DM: since 2019, HbA1c 6.1, on Trulicity and metformin 500mg BID Hypertension:for about 6-7 years on amlodipine 5, losartan 25, carvedilol 6.25mg BID. Occasionaly low with orthostatic hypotension, everyday. No family history of kidney problem or kidney stones, no smoking, took advil many years ago now only on tylenol. 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 No paint or lead exposure. [facility] Medical History (Updated 12/09/24 @ 10:15 by Cristi Santiago MD) History of ST elevation myocardial infarction Type 2 diabetes mellitus Chronic kidney disease Coronary artery disease History of alcohol abuse Chronic gastroesophageal reflux disease Orthostatic hypotension Villous adenoma HLD (hyperlipidemia) Anemia Essential (primary) hypertension Surgical History H/O hemicolectomy H/O colonoscopy H/O cardiac catheterization Family History (Updated 12/09/24 @ 10:00 by Jo Ann Fernando MA) Mother Diabetes mellitus Social History (Updated 12/09/24 @ 10:00 by Jo Ann Fernando MA) Alcohol intake: never Patient Tobacco Use Status: Never used Tobacco Review of Systems Const Details: Const Denies body aches, Denies chills, Denies excessive sweating and Denies fatigue Eyes Denies blurry vision and Denies change in vision ENT Denies bleeding gums and Denies change in voice Card Denies chest pain and Denies leg ulcers Resp Denies cough and Denies excessive phlegm production GI Denies abdominal pain and Denies bloating Denies hematuria, Denies urinary frequency and Denies difficulty voiding Musc Denies abnormal gait Neuro Denies Neuro-related abnormal movements, back pain in left flank Psych Denies behavioral changes and Denies change in appetite Endo Denies change in body appearance, Denies cold intolerance, Denies excessive sweating and Denies fatigue Physical Exam Vital Signs: Last Vital Signs Pulse 95 12/09/24 10:06 BP 116/70 12/09/24 10:06 Pulse Ox 95 12/09/24 10:06 Oxygen Delivery Method Room Air 12/09/24 10:06 General: Elderly male not in any acute distress, comfortable, sitting on the chair Nutritional Appearance: well nourished and overweight Eyes: appearance normal, both eyes and all related structures; Alignment and Position: alignment normal and position normal Neck: No lymphadenopathy, no thyromegaly Resp: bilateral air entry equal, no added sounds present Cardio: Regular rate, regular rhythm; Heart sounds: S1 normal heart sound present and S2 normal heart sound present, no edema GI: soft, nontender, no guarding, no hepatosplenomegaly, mild tenderness left flank : bladder normal to inspection, bladder normal to palpation, no renal angle tenderness Skin: no rashes or lesions noted and elasticity normal Neuro: oriented to person, oriented to place, oriented to time and moves all extremities Results Reviewed Nephrology Results: Sodium, (135-145) 141 mmol/L 11/13/24 Potassium, (3.3-5.1) 4.5 mmol/L 11/13/24 Chloride, (96-108) 102 mmol/L 11/13/24 Carbon Dioxide, (22-29) 30 mmol/L H 11/13/24 BUN, (9-16) 19 mg/dL H 11/13/24 Creatinine, (0.5-1.4) 1.54 mg/dL H 11/13/24 Calcium, (8.4-10.2) 9.7 mg/dL 11/13/24 Urine Creatinine 507.57 mg/dL 11/13/24 Assessment & Plan Assessment & Plan (1) Diabetes mellitus: Code(s): E11.9 - Type 2 diabetes mellitus without complications Category: Medical (2) Chronic kidney disease: Code(s): N18.9 - Chronic kidney disease, unspecified Category: Medical Plan Chronic kidney disease stage : secondary to - no family history of CKD, no history of renal stones in the past, h/o NSAID use in the past but stopped for about a year. - creatinine 1.54 , GFR 44 - urine protein creatinine ratio: 114 - will get Urinalysis - avoid nephrotoxic medications not limited to NSAIDs, contrast etc. - importance of diet, weight loss, adequate blood pressure control, well explained to patient - will get hepatitis panel, HIV, PERRY, ANCA, complements, SPEP, UPEP, serum free light chains, Hypertension: - target blood pressures less than 130/90 mm Hg - compliance: good - continue carvedilol 6.25mg BID and losartan 25mg. Will stop amlodipine. Asked the patient to give us a call if the blood pressures are high, since he has orthostatic hypotension asked him to switch losartan to bedtime and will not add any new medications, will increase the dose of losartan if the BP is high. Anemia of chronic kidney disease: - will get iron, TIBC, ferritin levels Mineral bone disease: - will get calcium, phos, vitamin-D and PTH levels Total time spent in the clinic is about 40 minutes, 10 minutes on chart review, review of data, 20 minutes on encounter, physical examination, counseling, answering all the questions, 10 minutes on documentation. Orders: Orders HIV Ab/Ag Today E11.9 - Type 2 diabetes mellitus without complications, N18.9 - Chronic kidney disease, unspecified ANCA Vasculitides Today E11.9 - Type 2 diabetes mellitus without complications, N18.9 - Chronic kidney disease, unspecified Complement C3 Today E11.9 - Type 2 diabetes mellitus without complications, N18.9 - Chronic kidney disease, unspecified Complement C4 Today E11.9 - Type 2 diabetes mellitus without complications, N18.9 - Chronic kidney disease, unspecified [place]ausal/Lambda Light Chain Serum Today E11.9 - Type 2 diabetes mellitus without complications, N18.9 - Chronic kidney disease, unspecified Basic Metabolic Panel Today E11.9 - Type 2 diabetes mellitus without complications, N18.9 - Chronic kidney disease, unspecified Microalbumin, Random (w Creat) Today E11.9 - Type 2 diabetes mellitus without complications, N18.9 - Chronic kidney disease, unspecified Phosphorus Today E11.9 - Type 2 diabetes mellitus without complications, N18.9 - Chronic kidney disease, unspecified Parathyroid Hormone Intact Today E11.9 - Type 2 diabetes mellitus without complications, N18.9 - Chronic kidney disease, unspecified Vitamin D 25-OH Total Today E11.9 - Type 2 diabetes mellitus without complications, N18.9 - Chronic kidney disease, unspecified IRON PROFILE Today E11.9 - Type 2 diabetes mellitus without complications, N18.9 - Chronic kidney disease, unspecified Basic Metabolic Panel 3 Months E11.9 - Type 2 diabetes mellitus without complications, N18.9 - Chronic kidney disease, unspecified Total Protein Urine Random 3 Months E11.9 - Type 2 diabetes mellitus without complications, N18.9 - Chronic kidney disease, unspecified Hepatitis B,C Profile Today E11.9 - Type 2 diabetes mellitus without complications, N18.9 - Chronic kidney disease, unspecified PERRY Reflex Titer and Pattern Today E11.9 - Type 2 diabetes mellitus without complications, N18.9 - Chronic kidney disease, unspecified Protein Electrophoresis, Serum Today E11.9 - Type 2 diabetes mellitus without complications, N18.9 - Chronic kidney disease, unspecified UA and rflx microscopic Today E11.9 - Type 2 diabetes mellitus without complications, N18.9 - Chronic kidney disease, unspecified Total Protein Urine Random Today E11.9 - Type 2 diabetes mellitus without complications, N18.9 - Chronic kidney disease, unspecified Complete Blood Count no Diff Today E11.9 - Type 2 diabetes mellitus without complications, N18.9 - Chronic kidney disease, unspecified Microalbumin, Random (w Creat) 3 Months E11.9 - Type 2 diabetes mellitus without complications, N18.9 - Chronic kidney disease, unspecified Complete Blood Count no Diff 3 Months E11.9 - Type 2 diabetes mellitus without complications, N18.9 - Chronic kidney disease, unspecified Coding Level of Care Code New Pt Level 5 (88271) Diagnoses Diabetes mellitus E11.9 Chronic kidney disease N18.9
[2024-12-09 10:06] VITALS: BP 116/70; PULSE 95; O2SAT 95
--- OUTSIDE RECORDS SUMMARY | 2024-12-09 10:23 | XMS_ITS | Clinical Summary ---
Author Organization [facility] Address [address] [facility] [address] [place] [id number] Phone Care Team Providers Care Rotary Shear Operator Name Role Phone Vera, Ruth Hargrove TREASURY DIRECTOR Primary Care Provider [phone] Cathie Escamilla MD Unavailable Keanu Min MD Unavailable [phone] Melinda Fry CNP Unavailable Sara Sharma RN Unavailable [phone] Lonnie Keller MD Unavailable Victoriano Montesinos MD Unavailable Allergies No known active allergies Medications metFORMIN (GLUCOPHAGE) 850 MG tablet Take 500 mg by mouth 2 (two) times a day with meals. Take 1000mg QAM and 500mg QHS Active acetaminophen (TYLENOL) 325 mg tablet Take 500 mg by mouth every 8 (eight) hours as needed. Active aspirin 81 MG EC tablet Take 81 mg by mouth daily. Active atorvastatin (LIPITOR) 80 MG tablet 12/20/2021 Active melatonin 3 mg Tab Take 3 mg by mouth. Active omeprazole (PRILOSEC) 20 MG capsule 05/13/2022 Active JARDIANCE 10 mg tablet 06/10/2022 Active carvedilol (COREG) 12.5 MG tablet Take 1 tablet (12.5 mg total) by mouth 2 (two) times a day with meals. 180 tablet 3 07/01/2022 Active TRULICITY 0.75 mg/0.5 mL subcutaneous injection Inject under the skin. 03/13/2024 Active valsartan (DIOVAN) 320 MG tablet 320 mg daily. 01/20/2024 Active isosorbide mononitrate (IMDUR) 30 MG 24 hr tablet Take 1 tablet (30 mg total) by mouth daily. 90 tablet 3 03/28/2024 Active Active Problems Problem Noted Date Diagnosed Date Pre-operative cardiovascular examination 023 Assessment & Plan (07/15/2022 10:52 AM EST): Based on the RCRI, this patient has 2 major RFs which are predictive of adrianne-operative CV morbidity and mortality. 2 which in clinical study [place] [facility] [place] is suggestive of a 10.1% 30-day risk of , CA, or cardiac arrest. In addition, while patient is able to achieve 4 METS he does have reported cardiopulmonary limitations that have been present since his diagnosis of CAD. While he does not report any escalation in symptoms he should have medication titration. At his last visit we uptitrated his carvedilol and is feeling improved on this new dose. Therefore, the patient may proceed with the proposed intermediate risk surgery without further CV testing or procedures as the patient's risk for adrianne- operative cardiovascular complications is not significantly increased beyond that inherent to the proposed procedure. Further CV testing or procedures will not further mitigate this patient's risk. Assessment & Plan (07/01/2022 3:08 PM EST): Based on the RCRI, this patient has 2 major RFs which are predictive of adrianne-operative CV morbidity and mortality. 2 which in clinical study from [facility] [place] is suggestive of a 10.1% 30-day risk of , CA, or cardiac arrest. In addition, while patient is able to achieve 4 METS he does have reported cardiopulmonary limitations that have been present since his diagnosis of CAD. While he does not report any escalation in symptoms he should have medication titration. Therefore we are planning to increase his carvedilol and follow-up with him in 2 weeks. Overall, while patient has elevated risk the stability of his symptoms suggests he will be able to proceed with planned surgical intervention. In the weeks leading up to the procedure we will try to titrate his medications for further optimization. We are still awaiting information regarding the date of surgery and the indication. Patient was unable to provide this information. We will provide further updates to Dr. Briones as we titrate patient's medication regimen. Acute ST segment elevation myocardial infarction 03/01/2019 Overview (10/09/2023): [03/01/2019] (I21.3) Acute STEMI Type 2 diabetes mellitus 12/20/2017 Overview (10/09/2023): [12/20/2017] (E11.9) DIABETES MELLITUS, TYPE 2 Gastroesophageal reflux disease 03/14/2016 Overview (10/09/2023): [03/14/2016] (K21.9) GERD Systolic murmur 03/14/2016 Overview (10/09/2023): [03/14/2016] (I38) Systolic murmur Essential hypertension Assessment & Plan (03/28/2024 11:41 AM EST): BP is adequate. See above though Assessment & Plan (09/07/2023 1:21 PM EDT): Well treated on current regimen. No changes warranted. Assessment & Plan (02/16/2023 1:51 PM EDT): Well treated on current regimen. No changes warranted. Assessment & Plan (07/15/2022 10:54 AM EST): BP Readings from Last 3 Encounters: 07/15/22 (!) 140/74 07/01/22 (!) 144/70 02/10/22 (!) 160/80 Continue carvedilol to 12.5 twice daily Continue valsartan 160 mg daily Encouraged lifestyle modification Reports at home SBP is typically < 130 Assessment & Plan (07/01/2022 3:08 PM EST): BP Readings from Last 3 Encounters: 07/01/22 (!) 144/70 02/10/22 (!) 160/80 01/14/20 130/84 Increase carvedilol to 12.5 twice daily Continue valsartan 160 mg daily Follow-up 2 weeks Assessment & Plan (02/10/2022 2:24 PM EDT): BP today elevated however his home readings over the past few weeks have been in the 119-130 range. Also tells me that he is prone to drops in his BP so he really doesn't want to augment his regimen at present Assessment & Plan (02/25/2020 12:04 PM EDT): BP Readings from Last 3 Encounters: 01/14/20 130/84 07/18/19 136/86 06/20/19 128/80 Will need to tolerate higher supine blood pressures in the setting of orthostatic hypotension. Continue current medication Assessment & Plan (01/14/2020 9:51 AM EDT): BP Readings from Last 3 Encounters: 01/14/20 130/84 07/18/19 136/86 06/20/19 128/80 Blood pressures well controlled however he remains orthostatic with a 40 point drop in systolic blood pressure in the office today. He was asymptomatic. In the past we had recommended that he not be on metoprolol and his lisinopril dose be decreased to 10 mg daily.'s unclear whether these things were ever done. The patient states that he has been on metoprolol for the past 3 months and his lisinopril dose was increased from 10 mg to 20 mg approximately 6 months ago. Once again would recommend metoprolol be discontinued and lisinopril dose decreased to 10 mg daily. Patient was instructed to make a follow-up appointment with his primary care physician so that these things can be done. Cardiology follow-up will be PRN here. Assessment & Plan (07/18/2019 2:12 PM EDT): Currently mild, asymptomatic orthostatic hypotension BP is controlled Continue current medicatioons BP Readings from Last 3 Encounters: 07/18/19 136/86 06/20/19 128/80 06/04/19 (!) 164/100 Assessment & Plan (06/20/2019 3:37 PM EST): Orthostatic hypotension Resume lisinopril 10mg BP Readings from Last 3 Encounters: 06/20/19 128/80 06/04/19 (!) 164/100 04/23/19 (!) 200/100 Assessment & Plan (06/04/2019 12:51 PM EST): Orthostatic hypotension Decrease lisinopril as above but I suspect we will ultimately resume 20 mg BP Readings from Last 3 Encounters: 06/04/19 (!) 164/100 04/23/19 (!) 200/100 Assessment & Plan (04/23/2019 1:52 PM EST): BP Readings from Last 3 Encounters: 04/23/19 (!) 200/100 Elevated systolic pressure today Orthostatic with blood pressure falling to 150/90 while standing Return in 1 month with all pill bottles. Orthostatic hypotension Assessment & Plan (12/30/2020 2:07 PM EDT): Asymptomatic. Blood pressure 160/84 standing 130/80 sitting 110/62 standing Stable Continue to monitor Assessment & Plan (02/25/2020 12:03 PM EDT): Asymptomatic. Blood pressure supine 160/90. Blood pressure standing 90/70. Patient appears to be tolerating his orthostatic hypotension and 70 mmHg systolic blood pressure drop from lying to standing. He is on multiple medications to treat both hypertension and now coronary artery disease diagnosed in February 2019. If he develops symptomatic orthostatic hypotension I would suggest reducing the dose of the isosorbide mononitrate from 30 to 15 mg daily. If symptoms continue I would then discontinue entirely. Continue other medications for the time being. 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 Orthostatic in the office today. Blood pressure 120/80 lying and 80/60 standing. He was asymptomatic. Heart rate unchanged. Once again would recommend discontinuing metoprolol and reducing lisinopril dose to 10 mg daily. One may need to tolerate a higher baseline blood pressure in order to prevent symptomatic orthostatic hypotension. Recommended patient return to his primary care physician where these medication changes can be made if agreeable. 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 Orthostatic in the office with some dizziness reported He explains intermittent dizziness began after his fall in December that involved a head injury (normal head CT) It is not clear to be that dizziness today is a result off his BP (110/82) I suspect there may be a component of vertigo, anxiety We can try to cut lisinopril to 10 mg to see if this alleviates his symptoms though I am not expecting much change We will reassess in 1 month Assessment & Plan (04/23/2019 1:51 PM EST): 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 Unfortunately we do not know exactly what medications he is taking at this time. We will asked the patient to return 1 month with his meds. Chronic coronary artery disease Overview (02/07/2022): 80% distal LCx stenosis noted on cath in 2018 in the [place]. Similar findings noted on cath at [facility] in 2020 Assessment & Plan (03/28/2024 11:40 AM EST): See HPI. Some typical but some atypical features. Will check a nuclear stress test. Will also empirically start Imdur. Potential side effects reviewed With regards to his nuclear stress, he resides in [place] and requests that the test be done at [facility]. Will try to facilitate this for him. He is also in the process of trying to find doctors there Assessment & Plan (09/07/2023 1:23 PM EDT): See PMHx section for details. Doing well without angina Assessment & Plan (02/16/2023 1:47 PM EDT): See PMHx section for details. Doing well at present with no angina Assessment & Plan (07/15/2022 10:54 AM EST): Patient has known coronary artery disease with an 80% distal LCx stenosis. Patient has been medically managed. Patient reports he is feeling very well after recent carvedilol increase. No reported symptoms with exertion He denies any significant worsening in symptoms and reports that he is regularly active. Statin: continue atorvastatin; Goal LDL < 70 Antiplatelet: continue aspirin Beta-vero: continue recently increased carvedilol Assessment & Plan (07/01/2022 3:05 PM EST): Patient has known coronary artery disease with an 80% distal LCx stenosis. Patient has been medically managed. At this visit patient does report reproducible symptoms on exertion that have been stable since his diagnosis. He denies any significant worsening in symptoms and reports that he is regularly active. Given patient does have some symptoms on exertion he will benefit from medication titration and short-term follow-up. Increase beta-vero carvedilol 6.25 twice daily up to 12.5 mg twice daily - decision made after visit asked staff to contact patient family Short-term follow-up in 2 weeks Continue aspirin Continue atorvastatin Assessment & Plan (02/10/2022 2:11 PM EDT): See PMHx section for details. Presently stable without angina Assessment & Plan (12/30/2020 2:08 PM EDT): No angina Cardiac catheterization February 2019 Distal left circumflex (small branch) 80% stenosis. BENITO-3 flow in all arteries. Ejection fraction 65%. repeat cardiac catheterization in 2020 unchanged. Continue medical therapy Assessment & Plan (02/25/2020 12:09 PM EDT): No chest discomfort. Previously states that he was having left chest and left shoulder discomfort almost on a daily basis, this is no longer the case. Cardiac catheterization February 2019 Distal left circumflex (small branch) 80% stenosis. BENITO-3 flow in all arteries. Ejection fraction 65%. Continue medical therapy Hyperlipidemia Assessment & Plan (03/27/2024 8:49 AM EST): Well treated on current regimen. No changes warranted. Assessment & Plan (09/07/2023 1:21 PM EDT): Needs an updated lipid profile Assessment & Plan (02/16/2023 1:55 PM EDT): Reports that he has not been taking his statin for the last month because a friend told him that it was bad for him. Talked about this at length. Several questions answered. Recommended that he resume it and he agreed. Will check labs in 6 months and follow up with him at that time Assessment & Plan (07/01/2022 3:09 PM EST): Managed by PCP Goal LDL less than 70 Continued on atorvastatin and fenofibrate Assessment & Plan (02/07/2022 12:26 PM EDT): This has been managed by his PCP. I would recommend a goal LDL of less than 70 Assessment & Plan (12/30/2020 2:09 PM EDT): On atorvastatin 40 mg daily Labs followed by PCP. No data to review. Assessment & Plan (02/25/2020 12:57 PM EDT): On atorvastatin 40 mg daily Labs followed by PCP Consider empirically increasing to 80 mg daily Lipids January 2020 Total cholesterol 141, triglyceride 212, HDL 60, LDL 69. Immunizations Immunization Administration Dates Next Due Hepatitis B, unspecified formulation 02/23/2016, 10/02/2015,02/11/2015 Influenza High-Dose Quadriva lent Preservative Free IM 03/04/2022,02/16/2021,03/27/2020 Influenza High-Dose Trivalen t Preservative Free IM 05/20/2019 Influenza Trivalent w/ Preservative IM 1 ,02/02/2015,07/04/2014,04/23 Influenza, Unspecified Formulation 05/23,03/01/2010,01/21/2009,03/05,05/15/2007,03/16/2007,06/14/2006 Pneumococcal conjugate PCV13 04/06/2015 Pneumococcal polysaccharide PPSV23 03/01/2010 Tdap 01/21/2009 Family History Medical History Relation Comments Heart disease Neg Hx Social History Tobacco Use Types Packs/Day Years Used Date Smoking Tobacco: Never Smokeless Tobacco: Never Tobacco Cessation:Counseling Given: Not Answered Alcohol Use Standard Drinks/Week Comments Not Currently 0 (1 standard drink = 0.6 oz pur e alcohol) Education Answer Date Recorded Are you interested in more education? Not on prabhu e 09/02/2022 Are you concerned about learning? Not on file 09/02/2022 No 09/02/2022 No 09/02/2022 Digital Access Answer Date Recorded No 09/27/2022 No 09/27/2022 Reliable internet access at home? Not on file 09/27/2022 Device with a working camera? Not on file Sex and Gender Information Value Date Recorded Sex Assigned at Not on file Legal Sex Male 3:11 PM EST Gender Identity Not on file Sexual Orientation Not on file Last Filed Vital Signs Vital Sign Reading Time Taken Comments Blood Pressure 158/84 04/09/2024 10:52 AM EST Pulse 77 04/09/2024 10:52 AM EST Temperature 36.2 C (97.2 F) 04/09/2024 10:52 AM EST Respiratory Rate 14 04/09/2024 10:5 2 AM EST Oxygen Saturation 97% 04/09/2024 10: 52 AM EST Inhaled Oxygen Concentration - - Weight 81.2 kg (179 lb 0.2 oz) 04/09/2024 10:02 AM EST pt ref to take shoes off Height 168 cm (5' 6.14 ) 03/28/2024 11: 02 AM EST Body Mass Index 28.77 03/28/2024 11:02 AM EST Plan of Treatment Health Maintenance Due Date Last Done Comments DEPRESSION SCREENING 1957 HEPATITIS C SCREENING 1963 ZOSTER VACCINES (1 of 2) 1995 Adult Td,Tdap Booster 01/21/2019 01/21/2009 RSV VACCINE (1 - 1-dose 75+ series) 01/31/2020 DIABETIC EYE EXAM 10/09/2023 COVID-19 VACCINE ( - season) 2024 04/20/2022, 04/07/2021, 07/08/2020, Additional history exists HEMOGLOBIN A1C 10/02/2024 04/04/2024 BLOOD PRESSURE 10/08/2024 04/09/2024 CREATININE LEVEL 04/09/2025 04/09/2024, 07/2023, 09/07/2023, Additional history exists POTASSIUM LEVEL 04/09/2025 04/09/2024, 06/0 07/2023, 09/07/2023, Additional history exists PNEUMOCOCCAL VACCINES (50+ years) Completed 04/06/2015, 03/01/2010 SMOKING STATUS SCREENING (Once After 26 Yrs) Completed 04/09/2024 HEPATITIS A VACCINES Aged Out No long er eligible based on patient's age to complete this topic HIB VACCINES Aged Out No longer eligi ble based on patient's age to complete this topic MENINGOCOCCAL VACCINES (ACWY) Aged Out No longer eligible based on patient's age to complete this topic MENINGOCOCCAL VACCINES (B) Aged Out N o longer eligible based on patient's age to complete this topic Medical Devices Not on file Procedures Procedure Name Priority Date/Time Associated Diagnosis Comments COMPREHENSIVE METABOLIC PANEL Routine 04/09/2024 10:10 AM EST 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4 - 8.3 g/dL [facility] CALCIUM 9.3 8.8 - 10.7 mg/dL [facility] ALKALINE PHOSPHATASE 113 40 - 129 U/L [facility] TOTAL BILIRUBIN 0.6 0.2 - 1.2 mg/dL [facility] AST 33 <41 U/L [facility] ALT 29 <42 U/L [facility] GLOBULIN 3.3 2.3 - 4.2 g/dL [facility] EGFR 43(L) >59 mL/min/1.7 3m2 [facility] Comment:Estimated glomerular filtration rate calculated using the CKD-EPI refit equation. ANION GAP 12 7 - 17 mmol/L [facility] Blood 04/09/2024 10:1 0 AM EST 04/09/2024 10:11 AM EST Keanu Min MD LAB BLOOD ORDERABLES Fi nal Result [facility] [address] [place] [address], [facility] [phone] from Last 3 Months or Most Recently Relevant to Health Maintenance Insurance MEDICARE PART A & [place] MED[place] PART A & [place]ARE PART [place] & [place] PART A & [place] PART A & B [facility] MEDICARE PART A & B [facility] Care Teams Rotary Shear Operator Relationship Specialty Start Date End Date Ruth Gamez NP [address] [place] [phone] PCP - General Family Medicine 02/05/20 Cathie Escamilla MD [address] [place] [address] Referring Physician General Surgery 09/12/22 Keanu Min MD [address] [place] [id number] [email or web address] Primary Oncologist Medical Oncology 09/12/22 Melinda Fry CNP [address] [place] [id number] [email or web address] 10/09/23 Sara Sharma, RN [address] [place] [id number] [email or web address] Registered Nurse 10/09/23 Lonnie Keller MD [address] [place] [phone] Account Underwriter Cardiology 10/09/23 Victoriano Montesinos MD [address] [place] [id number] Consulting Provider Gastroenterology 10/09/23 Additional Source Comments The information contained in this document represents components of the legal health record. It is not the complete legal health record.[facility]
--- OUTSIDE RECORDS SUMMARY | 2024-12-09 10:24 | XMS_ITS | Clinical Summary ---
Author Organization [facility] Address [address] [place] [address] Phone Care Team Providers Care Research Chemical Engineer Name Role Phone Pastora Salazar DO Primary Care Provider [phone] Allergies No known active allergies Medications aspirin 81 mg EC tablet Take 1 tablet (81 mg total) by mouth daily. Active atorvastatin (LIPITOR) 80 mg tablet Take 1 tablet (80 mg total) by mouth at bedtime. 12/21/19 22 Active Trulicity 0.75 mg/0.5 mL pen injector injection Inject 0.5 mL (0.75 mg total) under the skin 1 (one) time per week. 03/13/20 24 Active mirtazapine (REMERON) 15 mg tablet Take 1 tablet (15 mg total) by mouth at bedtime. 01/28/20 24 Active ferrous sulfate 325 mg (65 mg iron) EC tablet Take 1 tablet (325 mg total) by mouth 1 (one) time each day with breakfast. Do not crush, chew, or split. 90 each 1 06/10/19 25 026 Active Additional Information Patient not taking.Reported on 11/21/2024 ferrous sulfate 325 mg (65 mg elemental iron) tablet Take 1 tablet (325 mg total) by mouth 2 (two) times a day. Active omeprazole (PriLOSEC) [address] capsule Take 1 capsule (20 mg total) by mouth 2 (two) times a day. Do not crush or chew. Active traZODone (DESYREL) 100 mg tablet Take 1 tablet (100 mg total) by mouth at bedtime. 10/22/19 25 Active metFORMIN (GLUCOPHAGE) 500 mg tablet Take 1 tablet (500 mg total) by mouth 2 (two) times a day with meals. Active amLODIPine (NORVASC) 5 mg tablet Take 1 tablet (5 mg total) by mouth 1 (one) time each day. 11/22/19 25 Active midodrine (PROAMATINE) 2.5 mg tablet Take 1 tablet (2.5 mg total) by mouth 3 (three) times a day before meals. 11/22/19 25 025 Active losartan (Cozaar) 25 mg tablet Take 1 tablet (25 mg total) by mouth at bedtime. 30 each 11/22/19 Active metFORMIN (GLUCOPHAGE) 1,000 mg tablet Take 1 tablet (1,000 mg total) by mouth 1 (one) time each day with breakfast. TAKE 1000 MG IN THE MORNING WITH BREAKFAST AND 500 MG IN THE EVENING WITH DINNER 01/20/20 24 025 Discontinued(Du plicate order) metFORMIN (GLUCOPHAGE) 500 mg tablet Take 1 tablet (500 mg total) by mouth 1 (one) time each day in the evening. 025 Discontinued ibuprofen (ADVIL,MOTRIN ) 200 mg tablet Take 1 tablet (200 mg total) by mouth every 6 (six) hours if needed. 025 Discontinued amLODIPine (NORVASC) 5 mg tablet Take 2 tablets (10 mg total) by mouth 1 (one) time each day. 180 each 3 06/10/19 25 025 Discontinued(Re order) carvediloL (COREG) 3.125 mg tablet Take 1 tablet (3.125 mg total) by mouth 2 (two) times a day with meals. 180 each 1 09/10/19 25 025 Discontinued carvediloL (COREG) 3.125 mg tablet Take 2 tablets (6.25 mg total) by mouth 2 (two) times a day with meals. 180 each 1 11/13/19 25 025 Discontinued(Pr escriber Discontinued) losartan (Cozaar) 25 mg tablet Take 1 tablet (25 mg total) by mouth 1 (one) time each day. 30 each 11/22/19 25 025 Discontinued Active Problems Problem Noted Date Diagnosed Date Generalized weakness 11/20/2024 Acute kidney injury superimposed on CKD ([facility] V24) 04/18/2024 Chest pain 04/04/2024 [...] mentioned, ECG showed evidence of the old NH but no acute changes. It is especially reassuring that he has had 2 negative high-sensitivity troponins. In reviewing his history, it almost sounds as though this may be a presentation of a migraine more than anything. If cardiac testing is negative, could consider neurology referral as an outpatient for headache management. Chronic coronary artery disease 04/04/2024 Overview (11/21/2024): - ST elevation NH apparently in 2019; 80% distal left circumflex stenosis noted on cardiac cath in 2019 in the [place] - Repeat cath performed in 2020 at [facility] showing no changes -Recent hospitalization at [facility] in late March into early April where Dr Jones saw him in consultation. He ruled out with serial cardiac enzymes. -Status post inpatient risk stratification pharmacologic nuclear stress test showed normal myocardial [...] systolic function, no hemodynamically significant valve disease - Unremarkable carotid ultrasound 05/2024 without hemodynamically significant stenosis in the bilateral carotid arteries, subclavian arteries or vertebral arteries. Assessment & Plan (11/21/2024 1:01 PM EDT): The patient continues with intermittent episodes of fatigue and breathlessness. His chest discomfort has improved per his report. His son states that he was able to do more physical activity previously. However, he is not rechallenged his activity tolerance on midodrine. Even though the patient has known CAD, his orthostatic hypotension is his primary troubling symptom at this time. As such, we will discontinue his beta-vero therapy as Dr. Jones recommended in prior visits as we have already been weaning it. He will continue his aspirin, calcium channel vero and statin at current doses. He will notify us of any changes in his current condition. Assessment & Plan (09/09/2024 9:37 AM EDT): [...] doses. Essential hypertension 04/04/2024 Assessment & Plan (11/21/2024 1:02 PM EDT): Patient's blood pressure is soft in the office today. He has supine hypertension but orthostatic hypotension, which Dr. Jones has previously described to the patient and his son as being challenging to mitigate. Given that he is still posturally dizzy though better on his midodrine, will prioritize treatment of his orthostatic hypotension and follow his supine hypertension along. Assessment & Plan (09/09/2024 9:37 AM EDT): [...] upon discharge. Hyperlipidemia 04/04/2024 Assessment & Plan (11/21/2024 1:04 PM EDT): Well-controlled lipid profile on current dose statin. Continue Assessment & Plan (09/09/2024 9:37 AM EDT): Continue on statin. Updating a lipid panel. Orders: Lipid panel; Future Orthostatic hypotension 04/04/2024 Assessment & Plan (11/21/2024 1:04 PM EDT): The patient continues with reports of postural dizziness. He is not wearing compression stockings. I gave him a prescription for this today and instructed his son to take it to [facility]. We have also discontinued his carvedilol as we have been weaning it over prior visits. I have started low- dose losartan 25 mg once daily in addition to his usual amlodipine as calcium channel blockers and ARB's tend to produce less orthostatic symptoms. I agree at least in the time being with midodrine low-dose 2.5 mg. The patient's son tells me that he is only taking it twice a day--morning and bedtime. We discussed the best timing for midodrine is around mealtimes so breakfast and dinner would be more appropriate. He can increase to 3 times daily if needed. The patient seems to be taking an adequate water. However, his diet may be a little sparse. I have given the patient's son information in Lao about increasing his protein intake. I have recommended 3 meals and 3 snacks throughout the day as a means of helping to support his nutritional needs and therefore treat his orthostatic hypotension. He has a follow-up next month with Mukund. He will call sooner with any questions or concerns or changes symptoms on the losartan. Assessment & Plan (09/09/2024 9:37 AM EDT): [...] his outpatient regimen. Type 2 diabetes mellitus ([facility] V24, [facility] V 28) 12/20/2017 Overview (04/04/2024): [12/20/2017] (E11.9) DIABETES MELLITUS, TYPE 2 Gastroesophageal reflux disease 03/14/2016 Overview (04/04/2024): [03/14/2016] (K21.9) GERD Resolved Problems Problem Noted Date Diagnosed Date Resolved Date Acute ST segment elevation m yocardial infarction ([facility] V24, [facility] V28) 03/01/2019 Overview (04/04/2024): [03/01/2019] (I21.3) Acute STEMI Systolic murmur 03/14/2016 04/05/2024 Overview (04/04/2024): [03/14/2016] (I38) Systolic murmur Encounters Date Type Department Care Team Description 11/21/2024 11:00 AM EDT [facility] [address] [place] [phone] Caridad Abreu NP Orthostatic hypotension (Primary Dx); Chronic coronary artery disease; Essential hypertension; Mixed hyperlipidemia 11/14/2024 [facility]phone [facility] [address] [place] [phone] Stephanie Jones MD Hospital Follow-up 11/12/[address] [place] [phone] Mukund Garcia NP Fatigue (Son is calling on behalf of pt due to language barrier ) 11/06/2024 1:21 PM EDT - 11/06/2024 6:07 PM EDT Emergency [facility] Emergency [address] [place] [phone] Taras Le MD Chest pain, unspecified type (Primary Dx) Discharge Disposition: Home or Self Care 09/09/2024 7:40 AM EDT [facility] Visit [facility] [address] [place] [phone] Mukund Garcia NP Chronic coronary artery disease [...] noted on cath in 2019 in the [place]. Similar findings noted on cath at [facility] in 2020 Essential hypertension 04/04/2024 Gastroesophageal reflux [...] Sign Reading Time Taken Comments Blood Pressure 100/60 11/21/2024 11:02 AM EDT Pulse 90 11/21/2024 11:02 AM EDT Temperature 36.5 C (97.7 F) 11/06/2024 12:38 PM EDT Respiratory Rate 16 11/06/2024 12:38 PM EDT Oxygen Saturation 95% 11/21/2024 11:02 AM EDT Inhaled Oxygen Concentration - - Weight 81.9 kg (180 lb 9.6 oz) 11/21/2024 11:02 AM EDT Height 170.2 cm (5' 7 ) 11/21/2024 11:02 AM EDT Body Mass Index 28.29 11/21/2024 11:02 AM EDT Plan of Treatment Upcoming Encounters Date Type Department Care Team (Late st Contact Info) Description 12/19/2024 9:40 AM EDT Office Visit [facility] [address] [place] [address] Mukund Garcia, [address] [place] [address] Health Maintenance Due Date Last Done Comments Diabetes: Annual Foot Exam 1955 Diabetes: Annual Retina Eye Exam 1955 Zoster Vaccines (1 of 2) 01/31/1964 DTaP,Tdap,and Td Vaccines (2 - Td or Tdap) 01/21/2019 01/21/2009 RSV Immunization Adult Patients (1 - 1-dose 75+ series) 01/31/2020 COVID-19 Vaccine ( season) 2024 04/20/2022, 04/07/2021, 07/08/2020, Additional history exists Diabetes: Annual Urine Albumin-Creatinine Ratio (uACR) 04/04/2024 Medicare Annual Wellness Visit 04/04/2024 Social Influencers of Health Screening 04/04/2024 Depression Screening 05/08/2024 Influenza Vaccine (#1) 2025 , 02/16/2021, 03/27/2020, Additional history exists Falls Risk Assessment 04/20/2025 04/20/2024 Diabetes: Blood Sugar Control Test (HGBA1C) 05/16/2025 11/13/2024, 11/13/2024, 04/04/2024 Diabetes: Annual GFR (Glomerular Filtration Rate) 11/13/2025 11/13/2024, 11/06/2024, 06/20/2024, Additional history exists Hypertension/CHF/CAD Annual BMP Blood Test 11/13/2025 11/13/2024, 11/06/2024, 06/20/2024, Additional history exists Cholesterol Screening (Lipid Panel) 11/13/2029 11/13/2024, 04/05/2024 Pneumococcal Vaccine: 50+ Years Completed 04/06/2015, 03/01/2010 Hepatitis B Vaccines Completed 02/23/2016, 10/02/2015, 02/11/2015 Hepatitis C Screening Completed 11/13/2024 HIB Vaccines Aged Out No longer eligi [...] and culture (11/06/2024 2:50 PM EDT) Specific [place] Urine 1.013 1.003 - 1.030 LAB URINALYSIS - AUTOMATED METHOD 11/06/2024 3:21 PM EDT [facility] pH, Urine 6.0 5.0 - 8.0 pH LAB URINALYSIS - AUTOMATED METHOD 11/06/2024 3:21 PM EDT [facility] Leukocytes, Urine Negative Negative LAB URINALYSIS - AUTOMATED METHOD 11/06/2024 3:21 PM EDT [facility] Nitrite, Urine Negative Negative LAB URINALYSIS - AUTOMATED METHOD 11/06/2024 3:21 PM [facility] Protein, Urine Negative <=Trace mg/dL LAB URINALYSIS - AUTOMATED METHOD 11/06/2024 3:21 PM T [facility] Glucose, Urine Negative Negative mg/dL LAB URINALYSIS - AUTOMATED METHOD 11/06/2024 3:21 PM EDT [facility] Ketones, Urine Negative Negative mg/dL LAB URINALYSIS - AUTOMATED METHOD 11/06/2024 3:21 PM EDT [facility] Urobilinogen, Urine 0.2 0.2 - 1.0 mg/dL LAB URINALYSIS - AUTOMATED METHOD 11/06/2024 3:21 PM EDT [facility] Bilirubin, Urine Negative Negative LAB URINALYSIS - AUTOMATED METHOD 11/06/2024 3:21 PM EDT [facility] Blood, Urine Negative Negative LAB URINALYSIS - AUTOMATED METHOD 11/06/2024 3:21 PM EDT [facility] Urine Urine specimen obtained by clean catch procedure / Unknown Non-blood Collection / Unknown 11/06/2024 2:50 PM EDT 11/06/2024 3:09 PM EDT us Tarasazar Le MD LAB URINE ORDERABLES Final Resu lt Performing Organization Address City/[facility]/ZIP Co de Phone Number [facility] [address] [place] [address], [place] [phone] * Hua urine culture tube (11/06/2024 2:50 PM EDT) Extra Tube Hold for add-ons. 11/06/2024 5:01 PM EDT [facility] Comment:Auto resulted. Urine Urine specimen obtained by clean catch procedure / Unknown Non-blood Collection / Unknown 11/06/2024 2:50 PM EDT 11/06/2024 3:09 PM EDT us Tarasazar Le MD LAB URINE ORDERABLES Final Resu lt Performing Organization Address City/[facility]/ZIP Co de Phone Number [facility] [address] [place] [address], [place] [phone] * CT Angio Chest/Abdomen/Pelvis wo and/or w [...] Signed Date: 11/06/2024 15:11 ET Workstation ID: [id number] Transcribed By: Self Edit Transcribed Date: 11/06/2024 [...] was performed utilizing dose reduction techniques. Total [id number] Vasculature: Atherosclerotic plaque throughout the aorta and [...] Signed Date: 11/06/2024 15:11 ET Workstation ID: [id number] Transcribed By: Self Edit Transcribed Date: 11/06/2024 15:00 ET Taras Le MD IMG CT PROCEDURES Final Result * CT Head wo Contrast (11/06/2024 2:39 PM EDT) Anatomical Region Laterality Modality Head and Neck Computed Tomogra phy 11/06/2024 2:46 PM EDT Impressions 11/06/2024 3:00 PM EDT NO ACUTE INTRACRANIAL ABNORMALITY. -------- FINAL REPORT -------- Dictated By: Lainey Boykin Dictated Date: 11/06/2024 14:46 ET Assigned Physician: Lainey Boykin Reviewed and Electronically Signed By: Lainey Boykin Signed Date: 11/06/2024 15:00 ET Workstation ID: [id number] Transcribed By: Self Edit Transcribed Date: 11/06/2024 [...] Signed Date: 11/06/2024 15:00 ET Workstation ID: [id number] Transcribed By: Self Edit Transcribed Date: 11/06/2024 14:55 ET Taras Luis Daniel Le MD [facility] CT PROCEDURES Final Result * Troponin I high sensitivity (11/06/2024 2:21 PM EDT) Only the most recent of2 resultswithin the time period is included. High Sensitivity Troponin I 6 <=79 ng/L LAB CHEMISTRY METHOD 11/06/2024 3:54 PM EDT [facility] Blood Venous blood specimen / Unknown Venipuncture / Unknown 11/06/2024 2:21 PM EDT 11/06/2024 3:10 PM EDT Narrative [facility] - 11/06/2024 3:54 PM EDT High levels of biotin in samples may falsely decrease hsTroponin values. Use caution when interpreting hsTroponin results in patients taking biotin who exhibit renal impairment (eGFR <60) or in patients taking more than 20 mg/day of biotin. Taras Le MD LAB BLOOD ORDERABLES Final Resu lt Performing Organization Address City/[facility]/ZIP Co de Phone Number [facility] [address] [place] [address], [place] [phone] * ECG 12 lead (11/06/2024 2:00 PM EDT) Only the most recent of2 resultswithin the time period is included. Ventricular Rate ECG 87 BPM GEMUSE Atrial Rate 87 BPM GEMUSE P-R Interval 212 ms GEMUSE QRS Duration 80 ms GEMUSE Q-T Interval 350 ms GEMUSE QTc 421 ms GEMUSE P Wave [place] 31 degrees GEMUSE T [place] 28 degrees GEMUSE ECG Interpretation Sinus rhythm with 1st degree A-V block Inferior infarct , age undetermined When compared with ECG of 06-NOV-2024 12:54, (unconfirmed) Inferior infarct is now Present Confirmed by MEENU MONZON ([id number]) on 11/07/2024 5:40:25 AM GEMUSE 11/06/2024 2:00 PM EDT 11/07/2024 5:40 AM EDT Tarasazar Le MD ECG ORDERABLES Final Result Performing Organization Address City/[facility]/ZIP Co de Phone Number GEMUSE * XR Chest 2 Views (11/06/2024 [...] Signed Date: 11/06/2024 14:36 ET Workstation ID: [id number] Transcribed By: Self Edit Transcribed Date: 11/06/2024 [...] Signed Date: 11/06/2024 14:36 ET Workstation ID: [id number] Transcribed By: Self Edit Transcribed Date: 11/06/2024 14:35 ET Taras Le MD IMG XR PROCEDURES Final Result * (ABNORMAL) CBC auto differential (11/06/2024 12:58 PM EDT) WBC 11.7(H) 4.8 - 10.8 K/[facility] HEMETOLOGY METHOD 11/06/2024 1:28 PM EDT [facility] RBC 3.80(L) 4.50 - 5.50 M/[facility] LAB HEMETOLOGY METHOD 11/06/2024 1:28 PM EDT [facility] Hemoglobin 11.2(L) 13.5 - 17.5 g/dL LAB HEMETOLOGY METHOD 11/06/2024 1:28 PM EDT [facility] Hematocrit 34.6(L) 42.0 - 54.0 % LAB H[facility]ETOLOGY [facility]/06[facility]24 [facility] MCV 90.3 79.0 - 98.0 FL LAB HEMETOLOGY METHOD 11/06/2024 1:28 PM EDT [facility] MCH 29.2 27.0 - 32.0 pcg LAB HEMETOLOGY METHOD 11[facility]06[facility]2024 1[facility] MCHC 32.4 32.0 - 37.0 g/dL LAB HEMETOLOGY METHOD 11/06/2024 1:28 [facility] RDW 13.2 11.0 - 15.0 % LAB HEMETOLOGY METHOD 11/06/2024 1:28 PM EDT [facility] Platelets 364 130 - 400 K/mcL LAB HEMETOLOGY METHOD 11/06[facility]2024 1:[facility] MPV 9.4 7.0 - 11.0 FL LAB HEMETOLOGY METHOD 11/06/2024 1:28 [facility] NRBC 0.0 <1.0 % LAB HEMETOLOGY METHOD 11/06/2024 1:28 [facility] NRBC Absolute 0.00 <0.10 K/mcL LAB HEMETOLOGY METHOD 11/06/2024 1:28 PM EDT [facility] Neutrophils Relative 66.7 % LAB HEMETOLOGY METHOD 11/06[facility]2024 1[facility] Lymphocytes Relative 22.7 % LAB HEMETOLOGY METHOD 11/06/2024 1:28 PM EDT [facility] Monocytes Relative 7.6 % LAB HEMETOLOGY METHOD 11/06/2024 1:28 PM EDT [facility] Eosinophils Relative 1.7 % LAB HEMETOLOGY METHOD 11/06/2024 1:28 PM EDT [facility] Basophils Relative 0.6 % LAB HEMETOLOGY METHOD 11/06/2024 1:28 PM EDT [facility] Immature Granulocytes Relative 0.7 % LAB HEMETOLOGY METHOD 11/06/2024 1:28 PM EDT [facility] Neutrophils Absolute 7.80(H) 1.50 - 7.00 K/mcL LAB HEMETOLOGY METHOD 11/06/2024 1:28 PM EDT [facility] Lymphocytes Absolute 2.65 1.00 - 5.00 K/mcL LAB HEMETOLOGY METHOD 11/06/2024 1:28 PM EDT [facility] Monocytes Absolute 0.89 0.20 - 1.00 K/mcL LAB HEMETOLOGY METHOD 11/06/2024 1:28 PM EDT [facility] Eosinophils Absolute 0.20 0.00 - 0.50 K/mcL LAB HEMETOLOGY METHOD 11/06/2024 1:28 PM EDT [facility] Basophils Absolute 0.07 0.00 - 0.20 K/mcL LAB HEMETOLOGY METHOD 11/06/2024 1:28 PM EDT [facility] Immature Granulocytes Absolute 0.08(H) 0.00 - 0.03 K/mcL LAB HEMETOLOGY METHOD 11/06/2024 1:28 PM EDT [facility] Blood Venous blood specimen / Unknown Venipuncture / Unknown 11/06/2024 12:58 PM EDT 11/06/2024 1:23 PM EDT us Taras B Rey [facility] LAB BLOOD ORDERABLES Final Resu lt [facility] [address] [place] [address], [place] [phone] * B-type natriuretic peptide (11/06/2024 12:58 PM EDT) BNP 41 <=100 pcg/mL LAB CHEMISTRY METHOD 11/06/2024 2:11 PM EDT [facility] Blood Venous blood specimen / Unknown Venipuncture / Unknown 11/06/2024 12:58 PM EDT 11/06/2024 1:23 PM EDT [facility] Luis Daniel Le MD LAB BLOOD ORDERABLES Final Resu lt Performing Organization Address City/[facility]/ZIP Co de Phone Number [facility] [address] [place] [address], [place] [phone] * (ABNORMAL) Magnesium (11/06/2024 12:58 PM EDT) [facility] Magnesium 1.6(L) 1.9 - 2.6 mg/dL LAB CHEMISTRY METHOD 11/06/2024 2:16 PM EDT [facility] Blood Venous blood specimen / Unknown Venipuncture / Unknown 11/06/2024 12:58 PM EDT 11/06/2024 1:23 PM EDT Taras Le MD LAB BLOOD ORDERABLES Final Resu lt [facility] [address] [place] [address], [place] [phone] * Lipase (11/06/2024 12:58 PM EDT) Pathologist [facility] Lipase 60 13 - 75 unit/L LAB CHEMISTRY METHOD 11/06/2024 2:16 PM EDT [facility] Blood Venous blood specimen / Unknown Venipuncture / Unknown 11/06/2024 12:58 PM EDT 11/06/2024 1:23 PM EDT Taras Luis Daniel Le MD LAB BLOOD ORDERABLES Final Resu lt [facility] [address] [place] [address], * (ABNORMAL) Comprehensive metabolic panel (11/06/2024 12:58 PM EDT) Sodium 134 133 - 145 mmol/L LAB CHEMISTRY METHOD 11/06/2024 2:16 PM EDT [facility] Potassium 4.5 3.5 - 5.5 mmol/L LAB CHEMISTRY METHOD 11/06/2024 2:16 PM [facility] Chloride 99 96 - 110 mmol/L LAB CHEMISTRY METHOD 11/06/2024 2:16 PM [facility] CO2 28 21 - 32 mmol/L LAB CHEMISTRY METHOD 11/06/2024 2:16 PM [facility] Anion Gap 7 3 - 11 LAB CHEMISTRY METHOD 11/06/2024 2:16 PM [facility] Glucose 167(H) 70 - 100 mg/dL LAB CHEMISTRY METHOD 11/06/2024 2:16 PM [facility] BUN 27(H) 5 - 25 mg/dL LAB CHEMISTRY METHOD 11/06/2024 2:16 PM [facility] Creatinine 1.84(H) 0.70 - 1.30 mg/dL LAB CHEMISTRY METHOD 11/06/2024 2:16 PM [facility] eGFR 37(L) >=60 mL/min/1. 73m2 LAB CHEMISTRY METHOD 11/06/2024 2:16 PM [facility] Comment:Calculation based on the Chronic Kidney Disease Epidemiology Collaboration (CKD-EPI) equation refit without adjustment for race. BUN/Creatinine Ratio 14.7 LAB CHEMISTRY METHOD 11/06/2024 2:16 PM [facility] Calcium 10.0 8.5 - 10.5 mg/dL LAB CHEMISTRY METHOD 11/06/2024 2:16 PM EDT [facility] AST (SGOT) 12 10 - 42 unit/L LAB CHEMISTRY METHOD 11/06/2024 2:16 PM EDT [facility] ALT (SGPT) 22 10 - 60 unit/L LAB CHEMISTRY METHOD 11/06/2024 2:16 PM EDT [facility] Alkaline Phosphatase 81 42 - 121 unit/L LAB CHEMISTRY METHOD 11/06/2024 2:16 PM EDT [facility] Total Protein 7.0 6.0 - 8.0 g/dL LAB CHEMISTRY METHOD 11/06/2024 2:16 PM EDT [facility] Albumin 4.0 3.2 - 5.0 g/dL LAB CHEMISTRY METHOD 11/06/2024 2:16 PM EDT [facility] Total Bilirubin 0.5 0.0 - 1.4 mg/dL LAB CHEMISTRY METHOD 11/06/2024 2:16 PM EDT [facility] Blood Venous blood specimen / Unknown Venipuncture / Unknown 11/06/2024 12:58 PM EDT 11/06/2024 1:23 PM EDT us Taras B Rey [facility] BLOOD ORDERABLES Final Resu lt [facility] [address] [place] [address], * (ABNORMAL) Lipid panel with reflex to direct LDL (04/05/2024 5:04 AM EST) Cholesterol 106 0 - 200 mg/dL LAB CHEMISTRY METHOD 04/05/2024 5:52 AM EST [facility] Triglycerides 141 0 - 150 mg/dL LAB CHEMISTRY METHOD 04/05/2024 5:52 AM EST [facility] HDL 28(L) >=40 mg/dL LAB CHEMISTRY METHOD 04/05/2024 5:52 AM EST [facility] LDL Calculated 50 0 - 100 mg/dL LAB CHEMISTRY METHOD 04/05/2024 5:52 AM EST [facility] VLDL Cholesterol Ziggy 28.2 mg/dL LAB CHEMISTRY METHOD 04/05/2024 5:52 AM [facility] Non HDL Chol. (LDL+VLDL) 78 <145 mg/dL LAB CHEMISTRY METHOD 04/05/2024 5:52 AM [facility] Chol/HDL Ratio 3.8 0.0 - 4.4 LAB CHEMISTRY METHOD 04/05/2024 5:52 AM [facility] Blood Venous blood specimen / Unknown Venipuncture / Unknown 04/05/2024 5:04 AM EST 04/05/2024 5:25 AM EST Alycia HINDS LAB BLOOD ORDERABLES Final Re sult [facility] [address] [place] [address], [place] [phone] * (ABNORMAL) Hemoglobin A1c (04/04/2024 4:59 PM EST) Hemoglobin A1C 7.8(H) <6.5 % LAB CHEMISTRY METHOD 04/05/2024 1:42 PM EST [facility] Mean Bld Glu Estim. 177 mg/dL LAB CHEMISTRY METHOD 04/05/2024 1:42 PM EST [facility] Blood Venous blood specimen / Unknown Venipuncture / Unknown 04/04/2024 4:59 PM EST 04/04/2024 5:26 PM EST Jason Stevens MD LAB BLOOD ORDERABLES Final Result Performing Organization Address City/[facility]/ZIP Co de Phone Number [facility] [address] [place] [address], [place] [phone] from Last 3 Months or Most Recently Relevant to Health Maintenance Insurance [facility] Member Subscriber Plan / Payer (Ef fective 2024-Present) Name:Keanu Evangelista Relation to Subscriber:Self Name:Keanu Evangelista Payer ID:[id number] Group ID:[id number] Type:Not on file Address: [place] [address] [address] [id number] GENERIC Advance Directives Documents on File Type Date Recorded Patient Machine Plug Shaper Expl anation Advance Directives and Livin g [...] 7:44 PM 04/04/2024 8:40 PM This is o rder is used when code status has not been discussed with the patient, or code status is otherwise unknown/unconfirmed To update the patient's code status, place a code status order. Do not modify or discontinue any currently active code status orders. Care Teams Research Chemical Engineer Relationship Specialty Start Date End Date Pastora Salazar DO [address] [place] [address] PCP - General Family Medicine 11/21/24
--- OUTSIDE RECORDS SUMMARY | 2024-12-09 10:24 | XMS_ITS | Encounter Summary ---
Author Organization Formerly [facility] Address [address] [place] [address] Encounters * CPT with [facility] at [facility] on 2024-12-02 Additional PMH: Orthostatic Hypotension, Cardiac Stent 79 y.o male complains of Chest Pain Nurse calling reporting patient is new to them, and patient is complaining of L sided chronicchest pain . Nurse reports patient vitals at time of her visit were 140/52 and HR 97. Nurse reports patient has hx of cardiac stent and orthostatic hypotension. Nurse reports patient with no shortness of breath. I provided information on the mobile health provider response time and advised the patient and/or caregiver to monitor reported signs and symptoms. I discussed the warning signs of when to seek emergency care -Jake Jo RN { reasonForRequest : pt has a history of cardiac issues, pt has chest pains currently along with pressure in chest , patientReports : , denies :[],&q uot;chiefComplaints : Chest Pain , pmh : Hypertension, Diabetes Mellitus Type 2 , allergies : No Known Drug Allergies , otherAllergies : , painAssessment : , visitOutcome : , additionalComments : } Dispatched to the above address for a 79 y/m with a cc of chest pain. Proper ppe was worn throughout the call. Upon arrival: Pt AOx4 Danish peaking only greeted [facility] and gave a verbal report. Pt stated that about 1 week ago he started to have chest pain. He went to [facility] and was sent home with no results. Pt stated that he has been at home for about 7 days since the hospital, and has had no change in chest pain. He has been having the same on/off chest pain for about 1 week and the chest bev n gets worse when sitting down. Pt noted that every time he gets chest pain he starts having SOB (no known respiratory issues). Pt stated that he takes multiple BP medications/cardiac, and has been taking all his medications accordingly. Pt stated that he is unsure what to do anymore. Pt noted thathe is not on any blood thinners, and does take 1 81 mg baby asa daily. Pt also was noted to have Nitro, but did not take it today. Pt stated that he is not sure what exact medications he take/when totake due to his son being his health care proxy, and his son is in charge of administering his medications to daily. Pt was a poor historian. Pt stated that the chest pain feels like pressure to his s ternum, with no change in pain upon palpation. Pt stated that the pain is worse when he sits in a fowlers position (7/10 ). Chest pain does not get worse when lying down/walking. AOx4 - Airway: Patent - Breathing: equal chest rise and fall - LS: clear in the apices, and slightly diminished in the bases - Skin: pink, warm, dry - Pupils: PERRL - CMSx4 - Lower extremity: no edema noted. Head to toe body assessment: (- ) DCAPBTLS. Pt denied to headache/sob/dizziness/nausea/vomiting/blood in urine/constipation/diarrhea/difficulty urinating/painful urination/flu like symptoms/fever/ falls. HEENT. skin in tact with no deformity, discoloration, or inflammation. Pupils were equal and reactive to light bilaterally. Eyes tracking normally to six cardinal points of gaze. Nose and mouth were unobstructed. Trachea midline, jugular veins were nondistended in seated position. Face symmetrical with equal movement and sensation. Patient denied changes to vision or hearing and denied double vision. Tongue and uvula midline with palate raises symmetrically. No arm drift present, finger - nose test normal, no neglect noted. [facility]: ordered to do 12 lead. Successfully done. [facility] then gave orders to administer 3 81 mg ASA (pt took 1 81 mg asa earlier), and .4 mg of Nitro sublingual (both done successfully). After a couple of minutes pt noted that the chest pain slightly decreased to a 4/10 (BP decreased to 106/66). IV establ ished per [facility] request (18g in the left ac), and 911 was called to have pt transferred to [facility] (Pt choice of ER). [facility] transferred pt. [facility] clear. All times approximate. ECG: sent via Image ORAL_MEDICATION, EKG, POC_FLU_STREP, COVID_TEST Written by [facility] on 2024-12-02
--- OUTSIDE RECORDS SUMMARY | 2024-12-09 10:24 | XMS_ITS | Clinical Summary ---
Author Organization [employer] Address [address] [place] [address] 7 [place] [address] Care Team Providers Care Furniture Maker Name Role Phone Pastora Salazar Primary Care Provider Allergies No known active allergies Medications carvedilol (Coreg) 3.125 MG tablet 025 Active Trulicity 1.5 MG/0.5ML solution auto-injector INJECT 1.5MG SUBCUTANEOUSLY ONCE WEEKLY 025 Active meclizine (Antivert) 12.5 MG tablet TOME MARIO TABLETA POR V A ORAL CADA SEIS HORAS CUANDO SEA NECESARIO FOR DIZZINESS 025 Active traZODone (Desyrel) 100 MG tablet TOME 1 TABLETA POR V A ORAL TODOS LOS D AL ACOSTARSE 025 Active mirtazapine (Remeron) 15 MG tablet Take 15 mg by mouth at bedtime. 024 Active melatonin 5 MG tablet TOME 1 TABLETA POR V A ORAL TODOS LOS D AL ACOSTARSE 025 Active aspirin 81 MG EC tablet Take 81 mg by mouth Once per day. Active atorvastatin (Lipitor) 80 MG tablet Take 80 mg by mouth at bedtime. 022 Active metFORMIN (Glucophage) 500 MG tablet Take 1 tablet (500 mg) by mouth with breakfast and with evening meal. 60 tablet 3 025 2025 Active midodrine (Proamatine) 2.5 MG tablet Take 1 tablet (2.5 mg) by mouth 3 times daily. 90 tablet 3 025 2025 Active amLODIPine (Norvasc) 5 MG tablet Take 1 tablet (5 mg) by mouth Once per day. 30 tablet 3 025 2025 Active omeprazole (PriLOSEC) [address] capsule Take 1 capsule (20 mg) by mouth before breakfast and before evening meal. Do not crush or chew. 60 capsule 3 025 2025 Active simethicone (Mylicon) 125 MG chewable tablet Chew 1 tablet (125 mg) every 6 (six) hours if needed for flatulence. 30 tablet 1 025 2025 Active FREESTYLE LITE test strip CHECK BLOOD GLUCOSE ONCE DAILY Active FreeStyle lancets USE TO CHECK BLOOD SUGAR ONCE A DAY Active Blood Glucose Monitoring Suppl (FreeStyle Kent Lite) w/Device kit USE TO CHECK BLOOD SUGAR THREE TIMES A DAY Active Alcohol Swabs (Alcohol Prep) pads 1 each 2 times daily. 100 each 11 025 2025 Active ferrous sulfate 325 (65 Fe) MG EC tablet TAKE 1 TABLET BY MOUTH WITH BREAKFAST. DO NOT CRUSH, CHEW OR SPLIT. 90 tablet 1 025 Active nitroglycerin (Nitrostat) 0.[address] 1 TABLET UNDER THE TONGUE EVERY 5 MINUTES NEEDED FOR CHEST PAIN 25 tablet 1 025 Active ferrous sulfate 325 (65 Fe) MG EC tablet Take 325 mg by mouth with breakfast. 025 2024 Discontinued omeprazole (PriLOSEC) [address] capsule TOME 1 C PSULA POR V A ORAL TODOS LOS D 2024 Discontinued(R eorder (will not trigger notification to Pharmacy)) metFORMIN (Glucophage) 1000 MG tablet Take 1,000 mg by mouth with breakfast. 024 2024 Discontinued(D ose adjustment) amLODIPine (Norvasc) 5 MG tablet Take 10 mg by mouth Once per day. 025 2024 Discontinued(R eorder (will not trigger notification to Pharmacy)) nitroglycerin (Nitrostat) 0.[address] 1 tablet (0.4 mg) under the tongue every 5 (five) minutes if needed for chest pain. 30 tablet 025 2024 Discontinued Active Problems Problem Noted Date Diagnosed Date Essential hypertension 11/13/2024 Anemia 11/13/2024 Hyperlipidemia 11/13/2024 BMI 29.0-29.9,adult 11/13/2024 Villous adenoma 11/13/2024 Orthostatic hypotension 11/13/2024 Chronic gastroesophageal reflux disease 11/14/19 25 History of alcohol use 11/13/2024 Coronary artery disease 11/13/2024 Chronic kidney disease 11/13/[address] elevation myocardial infarction (S JOSE CARLOS) 11/13/2024 Type 2 diabetes mellitus 12/20/2017 Overview (11/13/2024): [12/20/2017] (E11.9) DIABETES MELLITUS, TYPE 2 Encounters Date Type Department Care Team Description 12/05/2024 Refill [facility] MED[facility] [address] [place] [address] Pastora Salazar DO 11/26/2024 Telephone [facility] MED[facility]INE [address] [place] [address] Pastora Salazar DO Results 11/15/2024 Refill [facility]INE [address] [place] [address] Pastora Salazar DO 11/13/2024 9:00 AM EDT Office Visit [facility] [address] [facility] [place] [address] Pastora Salazar DO Type 2 diabetes mellitus with stage 3 chronic kidney disease, without long-term current use of insulin, unspecified whether stage 3a or 3b CKD (CMS/HCC) (Primary Dx); Essential hypertension; Other hyperlipidemia; Anemia, unspecified type; Orthostatic hypotension; Stage 3 chronic kidney disease, unspecified whether stage 3a or 3b CKD (CMS/HCC); Coronary artery disease involving hoh coronary artery of hoh heart without angina pectoris; Chronic GERD; Abdominal bloating; Villous adenoma; Healthcare maintenance; BMI 29.0-29.9,adult 11/13/2024 Orders Only [facility] [address] [place] [address] Pastora Salazar DO 11/13/2024 Travel 11/06/2024 Telephone [facility] [address] [place] [address] Pastora Salazar DO Chart Prep 11/04/2024 Patient Outreach [facility] [address] [place] [phone] Pastora Salazar DO Care Coordination (CHW outreach for SDOH food needs-referral completed /) 11/04/2024 Patient Outreach [facility] [address] [place] [address] Pastora Salazar DO Pre-visit Planning ((SDOH screening positive tobacco screening negative) ) from Last 3 Months Immunizations Immunization Administration Dates Next Due Hep B, Unspecified 02/23/2016,10/02/2015, 015 Influenza High-dose Quadriva lent Preservative Free 03/04/2022,02/16/2021,03/27/2020 Influenza, High Dose Seasona l, Preservative Free 05/20/2019 Influenza, IIV3, injectable 02/23/2016,0 02/02/2015,07/04/2014,04/23 Influenza, Unspecified 05/23/2012,2009,01/21/2009,03/05,05/15/2007,03/16/2007,06/14/2006 Pneumococcal Conjugate PCV 13 04/06/2015 Pneumococcal Polysaccharide PPSV23 03/01/2010 Tdap 01/21/2009 Social History Tobacco Use Types Packs/Day Years Used Date Smoking Tobacco: Never Smokeless Tobacco: Never Tobacco Cessation:Counseling Given: Not Answered Alcohol Use Standard Drinks/Week Comments Never 0 [...] Orientation Straight 11/13/2024 9: 06 AM EDT Last Filed Vital Signs Vital Sign Reading Time Taken Comments Blood Pressure 128/70 11/13/2024 9:04 AM EDT Pulse 90 11/13/2024 9:04 AM EDT Temperature 36.8 C (98.3 F) 11/13/2024 9:04 AM EDT Respiratory Rate 21 11/13/2024 9:04 AM EDT Oxygen Saturation 96% 11/13/2024 9:04 AM EDT Inhaled Oxygen Concentration - - Weight 81.6 kg (180 lb) 11/13/2024 9:04 AM EDT Height 165.1 cm (5' 5 ) 11/13/2024 9:04 AM EDT Body Mass Index 29.95 11/13/2024 9:04 AM EDT Plan of Treatment Health Maintenance Due Date Last Done Comments Diabetes: Foot Exam 1955 Eye Exam 1955 Zoster Vaccines (1 of 2) 1995 DTaP/Tdap/Td Vaccines (2 - Td or Tdap) 01/21/2019 01/21/2009 RSV Patients and Patients Aged 60 years or older (1 - 1-dose 75+ series) 01/31/2020 COVID-19 Vaccine ( season) 2024 Influenza Vaccine (#1) 2025 , 02/16/2021, 03/27/2020, Additional history exists Diabetes: Hemoglobin A1C 05/16/2025 025, 11/13/2024, 04/04/2024 SDOH Screening 11/04/2025 11/04/2024 Alcohol/Substance Use Screening 11/13/2025 11/13/2024 Depression Screening 11/13/2025 11/13/2024, 11/14/19 Lipid Panel 11/13/2025 11/13/2024 Tobacco Screening 11/13/2025 11/13/2024 Pneumococcal Vaccine: 50+ Years Completed 04/06/2015, 03/01/2010 [...] patient's age to complete this topic Meningococcal Vaccine Aged Out No viktoria isabel eligible based on patient's age to complete this topic RSV under 20 months Aged Out No longe r eligible based on patient's age to complete this topic Rotavirus Vaccines Aged Out No longer eligible based on patient's age to complete this topic Procedures Procedure Name Priority Date/Time Associated Diagnosis Comments CHLAMYDIA/TRICHOMONA S/NEISSERIA GONORRHOEAE, PCR, URINE Routine 11/13/2024 10:06 AM EDT MAGNESIUM Routine 11/13/2024 10:06 AM EDT Type 2 diabetes mellitus with stage 3 chronic kidney disease, without long-term current use of insulin, unspecified whether stage 3a or 3b CKD (CMS/HCC) Essential hypertension Other hyperlipidemia Anemia, unspecified type Orthostatic hypotension Stage 3 chronic kidney disease, unspecified whether stage 3a or 3b CKD (CMS/HCC) Coronary artery disease involving hoh coronary artery of hoh heart without angina pectoris Chronic GERD Abdominal bloating Villous adenoma BMI 29.0-29.9,adult HEPATITIS B CORE AB TOTAL Routine 11/13/2024 10:06 AM EDT Type 2 diabetes mellitus with stage 3 chronic kidney disease, without long-term current use of insulin, unspecified whether stage 3a or 3b CKD (CMS/HCC) Essential hypertension Other hyperlipidemia Anemia, unspecified type Orthostatic hypotension Stage 3 chronic kidney disease, unspecified whether stage 3a or 3b CKD (CMS/HCC) Coronary artery disease involving hoh coronary artery of hoh heart without angina pectoris Chronic GERD Abdominal bloating Villous adenoma BMI 29.0-29.9,adult HEPATITIS A ANTIBODY, TOTAL Routine 11/13/2024 10:06 AM EDT Type 2 diabetes mellitus with stage 3 chronic kidney disease, without long-term current use of insulin, unspecified whether stage 3a or 3b CKD (CMS/HCC) Essential hypertension Other hyperlipidemia Anemia, unspecified type Orthostatic hypotension Stage 3 chronic kidney disease, unspecified whether stage 3a or 3b CKD (CMS/HCC) Coronary artery disease involving hoh coronary artery of hoh heart without angina pectoris Chronic GERD Abdominal bloating Villous adenoma BMI 29.0-29.9,adult IRON AND TOTAL IRON BINDING CAPACITY Routine 11/13/2024 10:06 AM EDT Type 2 diabetes mellitus with stage 3 chronic kidney disease, without long-term current use of insulin, unspecified whether stage 3a or 3b CKD (CMS/HCC) Essential hypertension Other hyperlipidemia Anemia, unspecified type Orthostatic hypotension Stage 3 chronic kidney disease, unspecified whether stage 3a or 3b CKD (CMS/HCC) Coronary artery disease involving hoh coronary artery of hoh heart without angina pectoris Chronic GERD Abdominal bloating Villous adenoma BMI 29.0-29.9,adult FERRITIN Routine 11/13/2024 10:06 AM EDT Type 2 diabetes mellitus with stage 3 chronic kidney disease, without long-term current use of insulin, unspecified whether stage 3a or 3b CKD (CMS/HCC) Essential hypertension Other hyperlipidemia Anemia, unspecified type Orthostatic hypotension Stage 3 chronic kidney disease, unspecified whether stage 3a or 3b CKD (CMS/HCC) Coronary artery disease involving hoh coronary artery of hoh heart without angina pectoris Chronic GERD Abdominal bloating Villous adenoma BMI 29.0-29.9,adult VITAMIN B12/FOLATE, SERUM PANEL Routine 11/13/2024 10:06 AM EDT Type 2 diabetes mellitus with stage 3 chronic kidney disease, without long-term current use of insulin, unspecified whether stage 3a or 3b CKD (CMS/HCC) Essential hypertension Other hyperlipidemia Anemia, unspecified type Orthostatic hypotension Stage 3 chronic kidney disease, unspecified whether stage 3a or 3b CKD (CMS/HCC) Coronary artery disease involving hoh coronary artery of hoh heart without angina pectoris Chronic GERD Abdominal bloating Villous adenoma BMI 29.0-29.9,adult HEPATITIS B SURFACE ANTIBODY, QUALITATIVE Routine 11/13/2024 10:06 AM EDT Type 2 diabetes mellitus with stage 3 chronic kidney disease, without long-term current use of insulin, unspecified whether stage 3a or 3b CKD (CMS/HCC) Essential hypertension Other hyperlipidemia Anemia, unspecified type Orthostatic hypotension Stage 3 chronic kidney disease, unspecified whether stage 3a or 3b CKD (CMS/HCC) Coronary artery disease involving hoh coronary artery of hoh heart without angina pectoris Chronic GERD Abdominal bloating Villous adenoma BMI 29.0-29.9,adult RPR (MONITOR) W/REFL TITER Routine 11/13/2024 10:06 AM EDT Type 2 diabetes mellitus with stage 3 chronic kidney disease, without long-term current use of insulin, unspecified whether stage 3a or 3b CKD (CMS/HCC) Essential hypertension Other hyperlipidemia Anemia, unspecified type Orthostatic hypotension Stage 3 chronic kidney disease, unspecified whether stage 3a or 3b CKD (CMS/HCC) Coronary artery disease involving hoh coronary artery of hoh heart without angina pectoris Chronic GERD Abdominal bloating Villous adenoma BMI 29.0-29.9,adult HEPATITIS C AB W/REFL TO HCV RNA, QN, PCR Routine 11/13/2024 10:06 AM EDT Type 2 diabetes mellitus with stage 3 chronic kidney disease, without long-term current use of insulin, unspecified whether stage 3a or 3b CKD (CMS/HCC) Essential hypertension Other hyperlipidemia Anemia, unspecified type Orthostatic hypotension Stage 3 chronic kidney disease, unspecified whether stage 3a or 3b CKD (CMS/HCC) Coronary artery disease involving hoh coronary artery of hoh heart without angina pectoris Chronic GERD Abdominal bloating Villous adenoma BMI 29.0-29.9,adult HIV 1/2 ANTIGEN/ANTIBODY, FOURTH GENERATION W/RFL Routine 11/13/2024 10:06 AM EDT Type 2 diabetes mellitus with stage 3 chronic kidney disease, without long-term current use of insulin, unspecified whether stage 3a or 3b CKD (CMS/HCC) Essential hypertension Other hyperlipidemia Anemia, unspecified type Orthostatic hypotension Stage 3 chronic kidney disease, unspecified whether stage 3a or 3b CKD (CMS/HCC) Coronary artery disease involving hoh coronary artery of hoh heart without angina pectoris Chronic GERD Abdominal bloating Villous adenoma BMI 29.0-29.9,adult HEPATITIS B SURFACE ANTIGEN, EIA Routine 11/13/2024 10:06 AM EDT Type 2 diabetes mellitus with stage 3 chronic kidney disease, without long-term current use of insulin, unspecified whether stage 3a or 3b CKD (CMS/HCC) Essential hypertension Other hyperlipidemia Anemia, unspecified type Orthostatic hypotension Stage 3 chronic kidney disease, unspecified whether stage 3a or 3b CKD (CMS/HCC) Coronary artery disease involving hoh coronary artery of hoh heart without angina pectoris Chronic GERD Abdominal bloating Villous adenoma BMI 29.0-29.9,adult ALBUMIN, RANDOM URINE W/CREATININE Routine 11/13/2024 10:06 AM EDT Type 2 diabetes mellitus with stage 3 chronic kidney disease, without long-term current use of insulin, unspecified whether stage 3a or 3b CKD (CMS/HCC) Essential hypertension Other hyperlipidemia Anemia, unspecified type Orthostatic hypotension Stage 3 chronic kidney disease, unspecified whether stage 3a or 3b CKD (CMS/HCC) Coronary artery disease involving hoh coronary artery of hoh heart without angina pectoris Chronic GERD Abdominal bloating Villous adenoma BMI 29.0-29.9,adult BASIC METABOLIC PANEL Routine 11/13/2024 10:06 AM EDT Type 2 diabetes mellitus with stage 3 chronic kidney disease, without long-term current use of insulin, unspecified whether stage 3a or 3b CKD (CMS/HCC) Essential hypertension Other hyperlipidemia Anemia, unspecified type Orthostatic hypotension Stage 3 chronic kidney disease, unspecified whether stage 3a or 3b CKD (CMS/HCC) Coronary artery disease involving hoh coronary artery of hoh heart without angina pectoris Chronic GERD Abdominal bloating Villous adenoma BMI 29.0-29.9,adult HEMOGLOBIN A1C Routine 11/13/2024 10:06 AM EDT Type 2 diabetes mellitus with stage 3 chronic kidney disease, without long-term current use of insulin, unspecified whether stage 3a or 3b CKD (CMS/HCC) Essential hypertension Other hyperlipidemia Anemia, unspecified type Orthostatic hypotension Stage 3 chronic kidney disease, unspecified whether stage 3a or 3b CKD (CMS/HCC) Coronary artery disease involving hoh coronary artery of hoh heart without angina pectoris Chronic GERD Abdominal bloating Villous adenoma BMI 29.0-29.9,adult HEPATIC FUNCTION PANEL Routine 11/13/2024 10:06 AM EDT Type 2 diabetes mellitus with stage 3 chronic kidney disease, without long-term current use of insulin, unspecified whether stage 3a or 3b CKD (CMS/HCC) Essential hypertension Other hyperlipidemia Anemia, unspecified type Orthostatic hypotension Stage 3 chronic kidney disease, unspecified whether stage 3a or 3b CKD (CMS/HCC) Coronary artery disease involving hoh coronary artery of hoh heart without angina pectoris Chronic GERD Abdominal bloating Villous adenoma BMI 29.0-29.9,adult TSH Routine 11/13/2024 10:06 AM EDT Type 2 diabetes mellitus with stage 3 chronic kidney disease, without long-term current use of insulin, unspecified whether stage 3a or 3b CKD (CMS/HCC) Essential hypertension Other hyperlipidemia Anemia, unspecified type Orthostatic hypotension Stage 3 chronic kidney disease, unspecified whether stage 3a or 3b CKD (CMS/HCC) Coronary artery disease involving hoh coronary artery of hoh heart without angina pectoris Chronic GERD Abdominal bloating Villous adenoma BMI 29.0-29.9,adult LIPID PANEL, STANDARD Routine 11/13/2024 10:06 AM EDT Type 2 diabetes mellitus with stage 3 chronic kidney disease, without long-term current use of insulin, unspecified whether stage 3a or 3b CKD (CMS/HCC) Essential hypertension Other hyperlipidemia Anemia, unspecified type Orthostatic hypotension Stage 3 chronic kidney disease, unspecified whether stage 3a or 3b CKD (CMS/HCC) Coronary artery disease involving hoh coronary artery of hoh heart without angina pectoris Chronic GERD Abdominal bloating Villous adenoma BMI 29.0-29.9,adult VITAMIN D,25-OH,TOTAL,IA Routine 11/13/2024 10:06 AM EDT Type 2 diabetes mellitus with stage 3 chronic kidney disease, without long-term current use of insulin, unspecified whether stage 3a or 3b CKD (CMS/HCC) Essential hypertension Other hyperlipidemia Anemia, unspecified type Orthostatic hypotension Stage 3 chronic kidney disease, unspecified whether stage 3a or 3b CKD (CMS/HCC) Coronary artery disease involving hoh coronary artery of hoh heart without angina pectoris Chronic GERD Abdominal bloating Villous adenoma BMI 29.0-29.9,adult T4, FREE Routine 11/13/2024 10:06 AM EDT Type 2 diabetes mellitus with stage 3 chronic kidney disease, without long-term current use of insulin, unspecified whether stage 3a or 3b CKD (CMS/HCC) Essential hypertension Other hyperlipidemia Anemia, unspecified type Orthostatic hypotension Stage 3 chronic kidney disease, unspecified whether stage 3a or 3b CKD (CMS/HCC) Coronary artery disease involving hoh coronary artery of hoh heart without angina pectoris Chronic GERD Abdominal bloating Villous adenoma BMI 29.0-29.9,adult POCT GLYCATED HEMOGLOBIN, TOTAL Routine 11/13/2024 9:11 AM EDT Type 2 diabetes mellitus with stage 3 chronic kidney disease, without long-term current use of insulin, unspecified whether stage 3a or 3b CKD (CMS/HCC) POCT GLUCOSE Routine 11/13/2024 9:10 AM EDT Type 2 diabetes mellitus with stage 3 chronic kidney disease, without long-term current use of insulin, unspecified whether stage 3a or 3b CKD (CMS/HCC) from Last 3 Months Results * Chlamydia/Trichomonas/Neisseria gonorrhoeae, PCR, Urine (11/13/2024 10:06 AM EDT) CT PCR, Urine NOT DETECTED Not Detect. [facility] Comment:A not detected test result does not exclude the possibilityof infection because test results can be affected byimproper specimen collection, concurrent antibiotic therapy,or the number of organisms in the specimen which may bebelow the sensitivity of the test. As with many diagnostictests, results from the Xpert CT/NG assay should beinterpreted in conjunction with other laboratory andclinical data available to the clinician.The Xpert CT/NG assay should not be used for the evaluationof suspected sexual abuse or for other medico-legalindications. Additional testing is recommended in anycircumstance when false positive or false negative resultscould lead to adverse medical, social or psychologicalconsequences. NG PCR, Urine NOT DETECTED Not Detect. [facility] Comment:A not detected test result does not exclude the possibilityof infection because test results can be affected byimproper specimen collection, concurrent antibiotic therapy,or the number of organisms in the specimen which may bebelow the sensitivity of the test. As with many diagnostictests, results from the Xpert CT/NG assay should beinterpreted in conjunction with other laboratory andclinical data available to the clinician.The Xpert CT/NG assay should not be used for the evaluationof suspected sexual abuse or for other medico-legalindications. Additional testing is recommended in anycircumstance when false positive or false negative resultscould lead to adverse medical, social or psychologicalconsequences. 11/13/2024 10:0 6 AM EDT 11/13/2024 11:53 AM EDT us Pastora Salazar DO LAB URINE ORDERABLES Final R esult [facility] [address] [place] [phone] [phone] * Vitamin D, 25-Hydroxy, Total, Immunoassay (11/13/2024 10:06 AM EDT) Vitamin D 25-OH Total 45.8 >30 ng/mL [facility] Comment: Health Based Reference Values*< 20 ng/mL [id number] ng/mL Insufficient> 30 ng/mL Sufficient*Mirtha SANTILLAN. N Engl J Med. 2007;357:266-280There is no well-established upper level of normal vitamin Dlevels. Some laboratories use 50 ng/mL as an upper limit ofnormal. However, toxicity is patient-dependent and may occurat any level. Careful correlation with the patient'spresentation is necessary and, if there is concern forvitamin D toxicity, treatment should be consideredirrespective of the serum level.Care must be taken in interpreting Vitamin D results fromdifferent laboratories and methodologies. Published datademonstrated that results from patients undergoinghemodialysis may show a negative bias when tested withvarious automated 25-OH vitamin D assays when compared toLC-MS/MS.When testing samples from patients whose predominant form ofVitamin D is Vitamin D2, such as patients receiving VitaminD2 supplementation, results that are subtherapeutic shouldbe confirmed with another method such as LC-MS/MS. Blood Venous blood specimen / Unknown 11/13/2024 10:06 AM EDT 11/13/2024 12:00 PM EDT us Pastora Salazar DO LAB BLOOD ORDERABLES Final R esult [facility] [address] [place] [phone] * (ABNORMAL) Vitamin B12 (Cobalamin) and Folate Panel, Serum (11/13/2024 10:06 AM EDT) Pathologist [facility] Vitamin B12 1,695(H) 200 - 900 pg/mL [facility] Comment:NORMAL 200-900 PG/ML INDETERMINATE 160-199 PG/ML DEFICIENT < 160 PG/ML Folate 15.7 > or = 4.0 ng/mL [facility] Comment:Reference Values:> o r = 4.0 ng/mL< 4.0 ng/mL suggests folate deficiency Methotrexate, aminopterin and folinic acid(leucovorin) are chemotherapeutic agents whose molecularstructures are similar to folate; therefore, the Architectfolate assay cannot be used for patients using these drugs. Blood 11/13/2024 10:0 6 AM EDT 11/13/2024 12:00 PM EDT Pastora Salazar DO LAB BLOOD ORDERABLES Final R esult Performing Organization Address City/[facility]/ZIP Co de Phone Number [facility] [address] [place] [address] [phone] * (ABNORMAL) Albumin, Random Urine W/Creatinine (11/13/2024 10:06 AM EDT) Creatinine, Urine 507.57 mg/dL [facility] Microalbumin Urine 579.0 mg/L H [facility] Microalbum Creatinine Ratio Ur 114.0(H) <30 ug/mg cr [facility] Comment:Albumin/Creatinine R atio Reference Ranges: Normal: < 30 ug/mg creatinine Microalbuminuria: 30 - 300 ug/mg creatinineClinical Albuminuria: > 300 ug/mg creatinine Urine (Urine, Random) 11/13/2024 10:06 AM EDT 11/13/2024 12:17 PM EDT Pastora Salazar DO LAB URINE ORDERABLES Final R esult Performing Organization Address [facility] Co de Phone Number [facility] [address] [place] [address] [phone] * Hepatitis C Antibody with Reflex to HCV, RNA, Quantitative, Real-Time PCR (11/13/2024 10:06 AM EDT) Hepatitis C Antibody Nonreactive Nonreactive [facility] Comment:Antibodies to HCV no t detected; does not exclude early acuteHCV infection. Blood Venous blood specimen / Unknown 11/13/2024 10:06 AM EDT 11/13/2024 12:00 PM EDT Pastora Salazar DO LAB BLOOD ORDERABLES Final R esult [facility] [address] [place] [phone] * Iron And Total Iron Binding Capacity (11/13/2024 10:06 AM EDT) Iron 85 45 - 160 mcg/dL [facility] Total Iron Binding Capacity 284 228 - 428 mcg/dL [facility] LABS Percent Iron Saturation 30 15 - 50 % [facility] Unsaturated Iron Binding 199 ug/dL [facility] Blood Venous blood specimen / Unknown 11/13/2024 10:06 AM EDT 11/13/2024 12:00 PM EDT Pastora Salazar LAB BLOOD ORDERABLES Final R esult Performing Organization Address [facility] Phone Number [facility] [address] [place] [phone] * Hepatitis A Antibody, Total (11/13/2024 10:06 AM EDT) Pathologist [facility] Hepatitis A Antibody IgG REACTIVE Nonreactive [facility] Comment:The presence of IgG anti-HAV implies past HAV infection(recent or distant) or vaccination against HAV. Blood Venous blood specimen / Unknown 11/13/2024 10:06 AM EDT 11/13/2024 12:00 PM EDT Pastora Salazar LAB BLOOD ORDERABLES Final R esult Performing Organization Address [facility] Co de Phone Number [facility] [address] [place] [address] [phone] * Hepatitis B surface antigen, EIA (11/13/2024 10:06 AM EDT) Pathologist [facility] Hepatitis B Surface Ag Negative Negative [facility] Blood Venous blood specimen / Unknown 11/13/2024 10:06 AM EDT 11/13/2024 12:00 PM EDT us Pastora Marie DO LAB BLOOD ORDERABLES Final R esult Performing Organization Address City/[facility]/ZIP Co de Phone Number [facility] [address] [place] [phone] * Hepatitis B Core Antibody, Total (11/13/2024 10:06 AM EDT) Hepatitis B Core Antibody Reactive Nonreactive [facility] Comment:Presumptive evidence of anti-HBc. Blood Venous blood specimen / Unknown 11/13/2024 10:06 AM EDT 11/13/2024 12:00 PM EDT us Pastora Marie DO LAB BLOOD ORDERABLES Final R esult Performing Organization Address [facility] Co de Phone Number [facility] [address] [place] [phone] * RPR (Monitor) with Reflex to??Titer (11/13/2024 10:06 AM EDT) RPR (Monitor) w/Refl Titer NON-REACTI VE NON-REACT LUDMILA [facility] Comment:THIS TEST WAS PERFOR MED AT:[facility] [place] [id number] GREGORIO MD Rapid Plasma Reagin Ab Titer TNP [facility] Blood Venous blood specimen / Unknown 11/13/2024 10:06 AM EDT 11/13/2024 11:53 AM EDT us Pastora Marie DO LAB BLOOD ORDERABLES Final R esult Performing Organization Address City/[facility]/ZIP Co de Phone Number [facility] [address] [place] [phone] * HIV-1/2 Antigen and Antibodies, Fourth Generation, with Reflexes (11/13/2024 10:06 AM EDT) HIV AB/AG Nonreactive Nonreactive [facility] Comment:HIV-1 p24 Ag and/or HIV-1/HIV-2 Ab not detected.A test result that is nonreactive does not exclude thepossibility of exposure to or infection with HIV-1 and/orHIV-2. Nonreactive results in this assay for individualswith prior exposure to HIV-1 and/or HIV-2 may be due toantigen and antibody levels that are below the limit ofdetection of this assay.The TYMRniSitefly HIV Ag/Ab Combo assay result andsupplemental assay results should be interpreted inconjunction with the patient's clinical presentation,history and other laboratory results. If the results areinconsistent with clinical evidence, additional testing issuggested to confirm the result. Blood Venous blood specimen / Unknown 11/13/2024 10:06 AM EDT 11/13/2024 12:00 PM EDT us Pastora Salazar DO LAB BLOOD ORDERABLES Final R esult Performing Organization Address City/[facility]/ZIP Co de Phone Number [facility] [address] [place] [phone] * Hepatitis B Surface Antibody, Qualitative (11/13/2024 10:06 AM EDT) ~Hepatitis B Surface Antibody REACTIVE Nonreactive [facility] Comment:REACTIVE: > 11.99 mI U/mL Blood Venous blood specimen / Unknown 11/13/2024 10:06 AM EDT 11/13/2024 12:00 PM EDT us Pastora Salazar DO LAB BLOOD ORDERABLES Final R esult Performing Organization Address City/[facility]/ZIP Co de Phone Number [facility] [address] [place] [address] [phone] * TSH (11/13/2024 10:06 AM EDT) Thyroid Stimulating Hormone 1.48 0.32 - 4.0 uIU/mL [facility] Comment:TSH 3rd Generation ( [facility]) Blood Venous blood specimen / Unknown 11/13/2024 10:06 AM EDT 11/13/2024 12:00 PM EDT Pastora Marie LAB BLOOD ORDERABLES Final R esult Performing Organization Address City/[facility]/ZIP Co de Phone Number [facility] [address] [place] [phone] * T4, Free (11/13/2024 10:06 AM EDT) Free T4 (Free Thyroxine) 0.96 0.71 - 1.85 ng/dL [facility] Blood Venous blood specimen / Unknown 11/13/2024 10:06 AM EDT 11/13/2024 12:00 PM EDT Pastora Marie LAB BLOOD ORDERABLES Final R esult Performing Organization Address [facility] Co de Phone Number [facility] [address] [place] [phone] * Magnesium (11/13/2024 10:06 AM EDT) Pathologist [facility] Magnesium 1.6 1.6 - 2.6 mg/dL [facility] Blood Venous blood specimen / Unknown 11/13/2024 10:06 AM EDT 11/13/2024 12:00 PM EDT Pastora Jacobsseverino LAB BLOOD ORDERABLES Final R esult Performing Organization Address [facility] Co de Phone Number [facility] [address] [place] [phone] * (ABNORMAL) Hemoglobin A1c (11/13/2024 10:06 AM EDT) Hemoglobin A1c 6.2(H) <6.0 % [facility] Comment:Hemoglobin A1C Refer ence Range Adults: 4.8 - 6.0 % Non diabetic: < 6.0 % Goal: < 7.0 %Additional Action Suggested: > 8.0 %Note: Hemoglobin A1c results are invalid for patients with abnormal amounts of HbF. Blood transfusions may impact the HbA1c concentration in the patient sample. Estimated Average Glucose 131 mg/dL [facility] Comment:eAG = Estimated ave rage glucose which is %A1C expressed asaverage glucose, using the formula of the [id number] Glucose study (ADAG), Diabetes Care, Vol.31,#8,2007 Blood Venous blood specimen / Unknown 11/13/2024 10:06 AM EDT 11/13/2024 11:53 AM EDT Pastora Salazar LAB BLOOD ORDERABLES Final R esult Performing Organization Address City/[facility]/ZIP Co de Phone Number [facility] [address] [place] [address] [phone] * (ABNORMAL) Ferritin (11/13/2024 10:06 AM EDT) Ferritin 19(L) 20 - 250 ng/mL [facility] Blood Venous blood specimen / Unknown 11/13/2024 10:06 AM EDT 11/13/2024 12:00 PM EDT Pastora Salazar DO LAB BLOOD ORDERABLES Final R esult Performing Organization Address City/[facility]/ZIP Co de Phone Number [facility] [address] [place] [address] [phone] * Hepatic Function Panel (11/13/2024 10:06 AM EDT) Bilirubin, Total 0.7 0.0 - 1.0 mg/dL [facility] Bilirubin, Direct 0.2 0.0 - 0.5 mg/dL [facility] Aspartate Amino Transferase 30 5 - 37 U/L [facility] Alanine Aminotransferase 20 0 - 40 U/L [facility] Total Protein 7.1 6.5 - 8.0 g/dL [facility] Albumin Level 4.6 3.5 - 5.0 g/dL [facility] Alkaline Phosphatase 73 39 - 117 U/L [facility] Blood Venous blood specimen / Unknown 11/13/2024 10:06 AM EDT 11/13/2024 12:00 PM EDT Pastora Salazar DO LAB BLOOD ORDERABLES Final R esult Performing Organization Address City/[facility] Co de Phone Number [facility] [address] [place] [address] [phone] * (ABNORMAL) Lipid Panel, Standard (11/13/2024 10:06 AM EDT) Triglycerides 171(H) <150 mg/dL [facility] Comment:Desirable Triglyceri de: less than 150 mg/dLBorderline High Triglyceride 150-199 mg/dLHigh Triglyceride: 200-499 mg/dLVery High Triglyceride: greater than or equal to 5OO mg/dL Cholesterol 96 <200 mg/dL [facility] Comment:Desirable Cholestero l: less than 200 mg/dLBorderline High Cholesterol: 200-239 mg/dLHigh Cholesterol: greater than 239 mg/dL LDL Cholesterol Calculated 41 <100 mg/dL [facility] Comment:Desirable LDL: less than 100 mg/dLNear Optimal/Above Optimal LDL: 110- 129 mg/dLBorderline High LDL: 130-159 mg/dLHigh LDL: 160-189 mg/dLVery High LDL: greater than or equal to 190 mg/dL HDL Cholesterol 21(L) >40 mg/dL [facility] Comment:Desirable HDL: great er than 40 mg/dL Note: This HDL assay may give artificially low results in patients with liver disease. Blood Venous blood specimen / Unknown 11/13/2024 10:06 AM EDT 11/13/2024 12:00 PM EDT Pastora Salazar DO LAB BLOOD ORDERABLES Final R esult Performing Organization Address City/[facility]/ZIP Co de Phone Number [facility] [address] [place] [phone] * (ABNORMAL) Basic Metabolic Panel (11/13/2024 10:06 AM EDT) Sodium 141 135 - 145 mmol/L [facility] Potassium 4.5 3.3 - 5.1 mmol/L [facility] Chloride 102 96 - 108 mmol/L [facility] Carbon Dioxide 30(H) 22 - 29 mmol/L [facility] Anion Gap 14 12 - 20 [facility] Urea Nitrogen (BUN) 19(H) 9 - 16 mg/dL [facility] Creatinine, Serum 1.54(H) 0.5 - 1.4 mg/dL [facility] Estimated Glomerular Filt Rate 44 [facility] Comment:Chronic Kidney Disea se: Estimated GFR < 60 mL/min/[id number] Kidney Disease: Estimated GFR < 15 mL/min/1.73m2 Glucose 151(H) 60 - 115 mg/dL [facility] Calcium 9.7 8.4 - 10.2 mg/dL [facility] Blood Venous blood specimen / Unknown 11/13/2024 10:06 AM EDT 11/13/2024 12:00 PM EDT us Pastora Salazar DO LAB BLOOD ORDERABLES Final R esult [facility] [address] [place] [phone] * (ABNORMAL) POCT HGB A1C (11/13/2024 9:11 AM EDT) Hemoglobin A1C 6.2(A) 4.0 - 5.7 % [employer] Lot # [id number] Lot# Expiration Date Blood 11/13/2024 9:11 AM EDT us Pastora Salazar DO POINT OF CARE TEST ENTER/RIMMA T ORDERABLES Final Result * POCT Glucose (11/13/2024 9:10 AM EDT) Glucose Blood, POC 187 60 - 200 mg/dL [employer] Lot # [id number] Lot# Expiration Date Blood Capillary blood specimen / Unknown 11/13/2024 9:10 AM EDT Pastora Salazar DO POINT OF CARE TEST ENTER/RIMMA T ORDERABLES Final Result from Last 3 Months Insurance [facility] INTER[employer] (HMO D-SNP) LIZET HOPKINS [id number] 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
== END 2024-12-09 10:43 | disposition home or self-care (01) ==
PROVIDERS: PCP Family Medicine; Referring Provider Family Medicine; Visit Provider Internal Medicine Critical Care Medicine
DX: E11.9 Type 2 diabetes mellitus without complications (principal); N18.9 Chronic kidney disease, unspecified
CPT/HCPCS: 99204

== ENCOUNTER → 2024-12-09 09:48 | Outpatient (BNVA) | payer OTHER, SELFPAY | PROVIDERS: PCP Family Medicine; Referring Provider Family Medicine; Visit Provider Internal Medicine Critical Care Medicine | DX: E11.9 Type 2 diabetes mellitus without complications (principal); N18.30 Chronic kidney disease, stage 3 unspecified | CPT/HCPCS: 99202 ==

== ENCOUNTER → 2024-12-11 10:20 | Outpatient (BNV) | payer OTHER, SELFPAY | PROVIDERS: PCP Family Medicine; Referring Provider Family Medicine; Visit Provider Internal Medicine | DX: D50.9 Iron deficiency anemia, unspecified (principal) | CPT/HCPCS: 99204; G2211 ==

== ENCOUNTER 2024-12-18 08:38 | Outpatient (REF) | payer OTHER, SELFPAY ==
--- NOTE | ~2024-12-18 | US_ITS ---
CLINICAL HISTORY: ABD BLOATING US abdomen complete Comparison: None provided Findings: The visualized pancreas head is normal. Remaining pancreas is obscured by bowel gas. The visualized aorta and inferior vena cava are normal caliber. The liver is normal in size, right lobe length is 15.2 cm. Mildly increased echogenicity liver parenchyma, no focal lesion is seen. No intrahepatic bile duct dilatation. The common duct is 3 mm in diameter. The gallbladder is normal. Negative sonographic Kimble sign. The main portal vein is patent with antegrade flow. The right kidney is normal, 10.5 cm in length. The left kidney is normal, 10.3 cm in length. The spleen is not well seen, grossly normal, 10.0 cm in length. No free fluid in the abdomen. Impression: Echogenic liver parenchyma, non-specific, commonly seen in the setting of steatosis or chronic hepatitis. Otherwise normal. This document has been electronically signed by: Flory Guillen MD on 12/18/2024 12:10:13
--- OUTSIDE RECORDS SUMMARY | 2024-12-18 08:52 | XMS_ITS | Clinical Summary ---
Author Organization [employer] Address [address] [place] [address] 7 [place] [address] Care Team Providers Care Medical Records Technician Name Role Phone Pastora Salazar Primary Care Provider Allergies No known active allergies Medications carvedilol (Coreg) 3.125 MG tablet 11/13/19 25 Active Trulicity 1.5 MG/0.5ML solution auto-injector INJECT 1.5MG SUBCUTANEOUSLY ONCE WEEKLY 11/01/19 25 Active meclizine (Antivert) 12.5 MG tablet TOME MARIO TABLETA POR V A ORAL CADA SEIS HORAS CUANDO SEA NECESARIO FOR DIZZINESS 10/22/19 25 Active traZODone (Desyrel) 100 MG tablet TOME 1 TABLETA POR V A ORAL TODOS LOS D AL ACOSTARSE 10/22/19 25 Active mirtazapine (Remeron) 15 MG tablet Take 15 mg by mouth at bedtime. 01/28/20 24 Active melatonin 5 MG tablet TOME 1 TABLETA POR V A ORAL TODOS LOS D AL ACOSTARSE 09/30/19 25 Active aspirin 81 MG EC tablet Take 81 mg by mouth Once per day. Active atorvastatin (Lipitor) 80 MG tablet Take 80 mg by mouth at bedtime. 12/21/19 22 Active metFORMIN (Glucophage) 500 MG tablet Take 1 tablet (500 mg) by mouth with breakfast and with evening meal. 60 tablet 3 11/14/19 25 2025 Active midodrine (Proamatine) 2.5 MG tablet Take 1 tablet (2.5 mg) by mouth 3 times daily. 90 tablet 3 11/14/19 25 2025 Active amLODIPine (Norvasc) 5 MG tablet Take 1 tablet (5 mg) by mouth Once per day. 30 tablet 3 11/14/19 25 2025 Active omeprazole (PriLOSEC) [address] capsule Take 1 capsule (20 mg) by mouth before breakfast and before evening meal. Do not crush or chew. 60 capsule 3 11/14/19 25 2025 Active simethicone (Mylicon) 125 MG chewable tablet Chew 1 tablet (125 mg) every 6 (six) hours if needed for flatulence. 30 tablet 1 11/14/19 25 2025 Active FREESTYLE LITE test strip CHECK BLOOD GLUCOSE ONCE DAILY 07/28/19 25 Active FreeStyle lancets USE TO CHECK BLOOD SUGAR ONCE A DAY 07/02/19 25 Active Blood Glucose Monitoring Suppl (FreeStyle Caney Lite) w/Device kit USE TO CHECK BLOOD SUGAR THREE TIMES A DAY 06/14/19 25 Active Alcohol Swabs (Alcohol Prep) pads 1 each 2 times daily. 100 each 11 11/14/19 25 2025 Active ferrous sulfate 325 (65 Fe) MG EC tablet TAKE 1 TABLET BY MOUTH WITH BREAKFAST. DO NOT CRUSH, CHEW OR SPLIT. 90 tablet 1 11/16/19 25 Active nitroglycerin (Nitrostat) 0.[address] 1 TABLET UNDER THE TONGUE EVERY 5 MINUTES NEEDED FOR CHEST PAIN 25 tablet 1 12/07/19 25 Active nitroglycerin (Nitrostat) 0.[address] 1 tablet (0.4 mg) under the tongue every 5 (five) minutes if needed for chest pain. 30 tablet 11/14/19 25 2024 Discontinued Active Problems Problem Noted Date [...] Type Department Care Team Description 12/05/2024 Refill [facility] [place] [address] Pastora Salazar DO 11/26/2024 Telephone [facility] [place] [address] Pastora Salazar DO Results 11/15/2024 Refill [facility] [place] [address] Pastora Salazar DO 11/13/2024 9:00 AM EDT Office Visit [facility] [place] [address] Pastora Salazar DO Type 2 diabetes mellitus with stage 3 chronic kidney disease, without long-term current use of insulin, unspecified whether stage 3a or 3b CKD (CMS/HCC) (Primary Dx); Essential hypertension; Other hyperlipidemia; Anemia, unspecified type; Orthostatic hypotension; Stage 3 chronic kidney disease, unspecified whether stage 3a or 3b CKD (CMS/HCC); 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; Chronic GERD; Abdominal bloating; Villous adenoma; Healthcare maintenance; BMI 29.0-29.9,adult 11/13/2024 Orders Only [facility] [place] [address] Pastora Salazar DO 11/13/2024 Travel 11/06/2024 Telephone [facility] [place] [address] Pastora Salazar DO Chart Prep 11/04/2024 Patient Outreach [facility] [place] [address] Pastora Salazar DO Care Coordination (CHW outreach for SDOH food needs-referral completed /) 11/04/2024 Patient Outreach [facility] [place] [address] Pastora Salazar DO Pre-visit Planning ((SDOH screening [...] 01/31/2020 COVID-19 Vaccine ( - season) 2024 Influenza Vaccine (#1) 2025 , [...] 3b CKD (CMS/HCC) 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 Chronic GERD Abdominal [...] 3b CKD (CMS/HCC) 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 Chronic GERD Abdominal [...] 3b CKD (CMS/HCC) 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 Chronic GERD Abdominal [...] 3b CKD (CMS/HCC) 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 Chronic GERD Abdominal [...] 3b CKD (CMS/HCC) 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 Chronic GERD Abdominal [...] 3b CKD (CMS/HCC) 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 Chronic GERD Abdominal [...] 3b CKD (CMS/HCC) 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 Chronic GERD Abdominal [...] 3b CKD (CMS/HCC) 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 Chronic GERD Abdominal [...] 3b CKD (CMS/HCC) 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 Chronic GERD Abdominal [...] 3b CKD (CMS/HCC) 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 Chronic GERD Abdominal [...] 3b CKD (CMS/HCC) 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 Chronic GERD Abdominal [...] 3b CKD (CMS/HCC) 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 Chronic GERD Abdominal [...] 3b CKD (CMS/HCC) 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 Chronic GERD Abdominal [...] 3b CKD (CMS/HCC) 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 Chronic GERD Abdominal [...] 3b CKD (CMS/HCC) 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 Chronic GERD Abdominal [...] 3b CKD (CMS/HCC) 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 [facility] Comment:A not detected test result does [...] NG PCR, Urine NOT DETECTED Not Detect. [facility] Comment:A not detected test result does [...] 6 AM EDT 11/13/2024 11:53 AM EDT Pastora Salazar DO LAB URINE ORDERABLES Final R esult [facility] [address] [place] [phone] * Vitamin D, 25-Hydroxy, Total, Immunoassay (11/13/2024 10:06 AM EDT) Vitamin D 25-OH Total 45.8 >30 ng/mL [facility] Comment: Health Based Reference Values*< 20 ng/mL [id number] ng/mL Insufficient> 30 ng/mL Sufficient*Mirtha SANTILLAN. N [...] ORDERABLES Final R esult Performing Organization Address City/[facility]/ZIP Co de Phone Number [facility] [address] [place] [phone] * (ABNORMAL) Vitamin B12 (Cobalamin) and Folate Panel, Serum (11/13/2024 10:06 AM EDT) Vitamin B12 1,695(H) 200 - 900 pg/mL [facility] Comment:NORMAL 200-900 PG/ML INDETERMINATE 160-199 PG/ML DEFICIENT < 160 PG/ML Folate 15.7 > or = 4.0 ng/mL [facility] Comment:Reference Values:> o r = 4.0 ng/mL< 4.0 ng/mL suggests folate deficiency Methotrexate, aminopterin and folinic acid(leucovorin) are chemotherapeutic agents whose molecularstructures are similar to folate; therefore, the Architectfolate assay cannot be used for patients using these drugs. Blood 11/13/2024 10:0 6 AM EDT 11/13/2024 12:00 PM EDT Pastora Jurseverino LAB BLOOD ORDERABLES Final R esult Performing Organization Address [facility] Co de Phone Number [facility] [address] [place] [phone] * (ABNORMAL) Albumin, Random Urine W/Creatinine (11/13/2024 10:06 AM EDT) Creatinine, Urine 507.57 mg/dL [facility] Microalbumin Urine 579.0 mg/L H [facility] Microalbum Creatinine Ratio Ur 114.0(H) <30 ug/mg cr [facility] Comment:Albumin/Creatinine R atio Reference Ranges: Normal: < 30 ug/mg creatinine Microalbuminuria: 30 - 300 ug/mg creatinineClinical Albuminuria: > 300 ug/mg creatinine Urine (Urine, Random) 11/13/2024 10:06 AM EDT 11/13/2024 12:17 PM EDT us Pastora Salazar DO LAB URINE ORDERABLES Final R esult Performing Organization Address City/[facility]/ZIP Co de Phone Number [facility] [address] [place] [phone] * Hepatitis C Antibody with Reflex to HCV, RNA, Quantitative, Real-Time PCR (11/13/2024 10:06 AM EDT) Hepatitis C Antibody Nonreactive Nonreactive [facility] Comment:Antibodies to HCV no t detected; does not exclude early acuteHCV infection. Blood Venous blood specimen / Unknown 11/13/2024 10:06 AM EDT 11/13/2024 12:00 PM EDT us Pastora Salazar DO LAB BLOOD ORDERABLES Final R esult Performing Organization Address City/[facility]/ZIP Co de Phone Number [facility] [address] [place] [phone] * Iron And Total Iron Binding Capacity (11/13/2024 10:06 AM EDT) Iron 85 45 - 160 mcg/dL [facility] Total Iron Binding Capacity 284 228 - 428 mcg/dL [facility] Percent Iron Saturation 30 15 - 50 % [facility] Unsaturated Iron Binding 199 ug/dL [facility] Blood Venous blood specimen / Unknown 11/13/2024 10:06 AM EDT 11/13/2024 12:00 PM EDT Pastora Marie DO LAB BLOOD ORDERABLES Final R esult Performing Organization Address [facility] Co de Phone Number [facility] [address] [place] [phone] * Hepatitis A Antibody, Total (11/13/2024 10:06 AM EDT) Hepatitis A Antibody IgG REACTIVE Nonreactive [facility] Comment:The presence of IgG anti-HAV implies past HAV infection(recent or distant) or vaccination against HAV. Blood Venous blood specimen / Unknown 11/13/2024 10:06 AM EDT 11/13/2024 12:00 PM EDT us Pastora Marie CASTILLO LAB BLOOD ORDERABLES Final R esult Performing Organization Address [facility] Co de Phone Number [facility] [address] [place] [phone] * Hepatitis B surface antigen, EIA (11/13/2024 10:06 AM EDT) Hepatitis B Surface Ag Negative Negative [facility] Blood Venous blood specimen / Unknown 11/13/2024 10:06 AM EDT 11/13/2024 12:00 PM EDT Pastora Marie DO LAB BLOOD ORDERABLES Final R esult Performing Organization Address [facility] Co de Phone Number [facility] [address] [place] [phone] * Hepatitis B Core Antibody, Total (11/13/2024 10:06 AM EDT) Hepatitis B Core Antibody Reactive Nonreactive [facility] Comment:Presumptive evidence of anti-HBc. Blood Venous blood specimen / Unknown 11/13/2024 10:06 AM EDT 11/13/2024 12:00 PM EDT us Pastora Salazar DO LAB BLOOD ORDERABLES Final R esult Performing Organization Address [facility]/ZIP Co de Phone Number [facility] [address] [place] [phone] * RPR (Monitor) with Reflex to??Titer (11/13/2024 10:06 AM EDT) RPR (Monitor) w/Refl Titer NON-REACTI VE NON-REACT LUDMILA [facility] Comment:THIS TEST WAS PERFOR MED AT:[facility] [place] [id number] GREGORIO MD Rapid Plasma Reagin Ab Titer TNP [facility] Blood Venous blood specimen / Unknown 11/13/2024 10:06 AM EDT 11/13/2024 11:53 AM EDT Pastora Salazar DO LAB BLOOD ORDERABLES Final R esult Performing Organization Address [facility] Co de Phone Number [facility] [address] [place] [phone] * HIV-1/2 Antigen and Antibodies, Fourth Generation, with Reflexes (11/13/2024 10:06 AM EDT) HIV AB/AG Nonreactive Nonreactive [facility] Comment:HIV-1 p24 Ag and/or HIV-1/HIV-2 Ab not detected.A test result that is nonreactive does not exclude thepossibility of exposure to or infection with HIV-1 and/orHIV-2. Nonreactive results in this assay for individualswith prior exposure to HIV-1 and/or HIV-2 may be due toantigen and antibody levels that are below the limit ofdetection of this assay.The [employer] HIV Ag/Ab Combo assay result andsupplemental assay results should be interpreted inconjunction with the patient's clinical presentation,history and other laboratory results. If the results areinconsistent with clinical evidence, additional testing issuggested to confirm the result. Blood Venous blood specimen / Unknown 11/13/2024 10:06 AM EDT 11/13/2024 12:00 PM EDT Pastora Salazar LAB BLOOD ORDERABLES Final R esult Performing Organization Address [facility] Co de Phone Number [facility] [address] [place] [phone] * Hepatitis B Surface Antibody, Qualitative (11/13/2024 10:06 AM EDT) ~Hepatitis B Surface Antibody REACTIVE Nonreactive [facility] Comment:REACTIVE: > 11.99 mI U/mL Blood Venous blood specimen / Unknown 11/13/2024 10:06 AM EDT 11/13/2024 12:00 PM EDT Pastora Jacobsnichelleana LAB BLOOD ORDERABLES Final R esult Performing Organization Address [facility] Co de Phone Number [facility] [address] [place] [phone] * TSH (11/13/2024 10:06 AM EDT) Thyroid Stimulating Hormone 1.48 0.32 - 4.0 uIU/mL [facility] Comment:TSH 3rd Generation ( [facility]) Blood Venous blood specimen / Unknown 11/13/2024 10:06 AM EDT 11/13/2024 12:00 PM EDT Pastora Salazar LAB BLOOD ORDERABLES Final R esult Performing Organization Address [facility] de Phone Number [facility] [address] [place] [phone] * T4, Free (11/13/2024 10:06 AM EDT) Free T4 (Free Thyroxine) 0.96 0.71 - 1.85 ng/dL [facility] Blood Venous blood specimen / Unknown 11/13/2024 10:06 AM EDT 11/13/2024 12:00 PM EDT Pastora Marie LAB BLOOD ORDERABLES Final R esult Performing Organization Address City/[facility]/ZIP Co de Phone Number [facility] [address] [place] [phone] * Magnesium (11/13/2024 10:06 AM EDT) Magnesium 1.6 1.6 - 2.6 mg/dL [facility] Blood Venous blood specimen / Unknown 11/13/2024 10:06 AM EDT 11/13/2024 12:00 PM EDT Pastora Salazar DO LAB BLOOD ORDERABLES Final R esult Performing Organization Address [facility] Co de Phone Number [facility] [address] [place] [phone] * (ABNORMAL) Hemoglobin A1c (11/13/2024 10:06 AM EDT) Hemoglobin A1c 6.2(H) <6.0 % [facility] Comment:Hemoglobin A1C Refer ence Range Adults: 4.8 - 6.0 % Non diabetic: < 6.0 % Goal: < 7.0 %Additional Action Suggested: > 8.0 %Note: Hemoglobin A1c results are invalid for patients with abnormal amounts of HbF. Blood transfusions may impact the HbA1c concentration in the patient sample. Estimated Average Glucose 131 mg/dL [facility] Comment:eAG = Estimated ave rage glucose which is %A1C expressed asaverage glucose, using the formula of the [id number] Glucose study (ADAG), Diabetes Care, Vol.31,#8,Dec. 2007 Blood Venous blood specimen / Unknown 11/13/2024 10:06 AM EDT 11/13/2024 11:53 AM EDT Pastora Salazar DO LAB BLOOD ORDERABLES Final R esult Performing Organization Address [facility]/ZIP Co de Phone Number [facility] [address] [place] [phone] * (ABNORMAL) Ferritin (11/13/2024 10:06 AM EDT) Ferritin 19(L) 20 - 250 ng/mL [facility] Blood Venous blood specimen / Unknown 11/13/2024 10:06 AM EDT 11/13/2024 12:00 PM EDT Pastora Salazar DO LAB BLOOD ORDERABLES Final R esult Performing Organization Address [facility] Co de Phone Number [facility] [address] [place] [phone] * Hepatic Function Panel (11/13/2024 10:06 AM EDT) Bilirubin, Total 0.7 0.0 - 1.0 mg/dL [facility] Bilirubin, Direct 0.2 0.0 - 0.5 mg/dL [facility] Aspartate Amino Transferase 30 5 - 37 U/L [facility] Alanine Aminotransferase 20 0 - 40 U/L [facility] Total Protein 7.1 6.5 - 8.0 g/dL [facility] Albumin Level 4.6 3.5 - 5.0 g/dL [facility] Alkaline Phosphatase 73 39 - 117 U/L [facility] Blood Venous blood specimen / Unknown 11/13/2024 10:06 AM EDT 11/13/2024 12:00 PM EDT Pastora Salazar DO LAB BLOOD ORDERABLES Final R esult Performing Organization Address [facility] Co de Phone Number [facility] [address] [place] [phone] * (ABNORMAL) Lipid Panel, Standard (11/13/2024 10:06 AM EDT) Triglycerides 171(H) <150 mg/dL [facility] Comment:Desirable Triglyceri de: less than 150 mg/dLBorderline High Triglyceride 150-199 mg/dLHigh Triglyceride: 200-499 mg/dLVery High Triglyceride: greater than or equal to 5OO mg/dL Cholesterol 96 <200 mg/dL [facility] Comment:Desirable Cholestero l: less than 200 mg/dLBorderline High Cholesterol: 200-239 mg/dLHigh Cholesterol: greater than 239 mg/dL LDL Cholesterol Calculated 41 <100 mg/dL [facility] Comment:Desirable LDL: less than 100 mg/dLNear Optimal/Above Optimal LDL: 110- 129 mg/dLBorderline High LDL: 130-159 mg/dLHigh LDL: 160-189 mg/dLVery High LDL: greater than or equal to 190 mg/dL HDL Cholesterol 21(L) >40 mg/dL [facility] Comment:Desirable HDL: great er than 40 mg/dL Note: This HDL assay may give artificially low results in patients with liver disease. Blood Venous blood specimen / Unknown 11/13/2024 10:06 AM EDT 11/13/2024 12:00 PM EDT us Pastora Salazar DO LAB BLOOD ORDERABLES Final R esult [facility] [address] [place] [phone] * (ABNORMAL) Basic Metabolic Panel (11/13/2024 10:06 AM EDT) Sodium 141 135 - 145 mmol/L [facility] Potassium 4.5 3.3 - 5.1 mmol/L [facility] Chloride 102 96 - 108 mmol/L [facility] Carbon Dioxide 30(H) 22 - 29 mmol/L [facility] Anion Gap 14 12 - 20 [facility] Urea Nitrogen (BUN) 19(H) 9 - 16 mg/dL [facility] Creatinine, Serum 1.54(H) 0.5 - 1.4 mg/dL [facility] Estimated Glomerular Filt Rate 44 [facility] Comment:Chronic Kidney Disea se: Estimated GFR < 60 mL/min/[id number] Kidney Disease: Estimated GFR < 15 mL/min/1.73m2 Glucose 151(H) 60 - 115 mg/dL [facility] Calcium 9.7 8.4 - 10.2 mg/dL [facility] Blood Venous blood specimen / Unknown 11/13/2024 10:06 AM EDT 11/13/2024 12:00 PM EDT Pastora Salazar DO LAB BLOOD ORDERABLES Final R esult [facility] [address] [place] [phone] * (ABNORMAL) POCT HGB A1C (11/13/2024 9:11 AM EDT) Hemoglobin A1C 6.2(A) 4.0 - 5.7 % [employer] Lot # [id number] Lot# Expiration Date ,026 Blood 11/13/2024 9:11 AM EDT Pastora Salazar DO POINT OF CARE TEST ENTER/RIMMA T ORDERABLES Final Result * POCT Glucose (11/13/2024 9:10 AM EDT) Glucose Blood, POC 187 60 - 200 mg/dL [employer] Lot # [id number] Lot# Expiration Date ,025 Blood Capillary blood specimen / Unknown 11/13/2024 9:10 AM EDT Pastora Salazar DO POINT OF CARE TEST ENTER/RIMMA T ORDERABLES Final Result from Last 3 Months Insurance [facility] [employer] (HMO D-SNP) [place] [id number] Care Teams Medical Records Technician Relationship Specialty Start Date End Date Pastora Salazar DO [address] [place] [address] PCP - General Family Medicine 11/13/24
--- OUTSIDE RECORDS SUMMARY | 2024-12-18 08:52 | XMS_ITS | Clinical Summary ---
Author Organization [facility] Address [address] [place] [address] Phone Care Team Providers Care Broadcasting Equipment Mechanic Name Role Phone Pastora Salazar DO Primary Care Provider [phone] Allergies No known active allergies Medications aspirin [...] (100 mg total) by mouth at bedtime. 06/16/20 25 Active metFORMIN (GLUCOPHAGE) 500 mg tablet Take 1 tablet (500 mg total) by mouth 2 (two) times a day with meals. Active amLODIPine (NORVASC) 5 mg tablet Take 1 tablet (5 mg total) by mouth 1 (one) time each day. 11/22/19 25 026 Active midodrine (PROAMATINE) 2.5 mg tablet Take 1 tablet (2.5 mg total) by mouth 3 (three) times a day before meals. 11/22/19 25 025 Active losartan (Cozaar) 25 mg tablet Take 1 tablet (25 mg total) by mouth at bedtime. 30 each 11 11/22/19 25 026 Active metFORMIN (GLUCOPHAGE) 1,000 mg tablet Take 1 tablet (1,000 mg total) by mouth 1 (one) time each day with breakfast. TAKE 1000 MG IN THE MORNING WITH BREAKFAST AND 500 MG IN THE EVENING WITH DINNER 01/20/20 24 025 Discontinued(Du plicate order) amLODIPine (NORVASC) 5 mg tablet Take 2 tablets (10 mg total) by mouth 1 (one) time each day. 180 each 3 06/10/19 25 025 Discontinued(Re order) carvediloL (COREG) 3.125 mg tablet Take 2 [...] 11/20/2024 Acute kidney injury superimposed on CKD (CMS/HCC V24) 04/18/2024 Chest pain 04/04/2024 Assessment & [...] mentioned, ECG showed evidence of the old ID but no acute changes. It is especially reassuring that he has had 2 negative high-sensitivity troponins. In reviewing his history, it almost sounds as though this may be a presentation of a migraine more than anything. If cardiac testing is negative, could consider neurology referral as an outpatient for headache management. Chronic coronary artery disease 04/04/2024 Overview (11/21/2024): - ST elevation ID apparently in 2019; 80% distal left circumflex stenosis noted on cardiac cath in 2019 in the [place] - Repeat cath performed in 2020 at [facility] showing no changes -Recent hospitalization at [facility] in late March into early April where [...] have given the patient's son information in Persian about increasing his protein intake. I have [...] his outpatient regimen. Type 2 diabetes mellitus ([facility] V24, [facility] V 28) 12/20/2017 Overview (04/04/2024): [12/20/2017] (E11.9) DIABETES MELLITUS, TYPE 2 Gastroesophageal reflux disease 03/14/2016 Overview (04/04/2024): [03/14/2016] (K21.9) GERD Resolved Problems Problem Noted Date Diagnosed Date Resolved Date Acute ST segment elevation m yocardial infarction ([facility] V24, [facility] V28) 03/01/2019 Overview (04/04/2024): [03/01/2019] (I21.3) Acute STEMI Systolic murmur 03/14/2016 04/05/2024 Overview (04/04/2024): [03/14/2016] (I38) Systolic murmur Encounters Date Type Department Care Team Description 11/21/2024 11:00 AM EDT Office Visit [facility] - [address] [place] [address] Caridad Abreu NP Orthostatic hypotension (Primary Dx); Chronic coronary artery disease; Essential hypertension; Mixed hyperlipidemia 11/14/2024 Telephone [facility] - [address] [place] [address] Stephanie Jones MD Hospital Follow-up 11/12/2024 Telephone [facility] - [address] [place] [address] Mukund Garcia NP Fatigue (Son is calling on behalf of pt due to language barrier ) 11/06/2024 1:21 PM EDT - 11/06/2024 6:07 PM EDT Emergency [facility] [address] [place] [address] Taras Le MD Chest pain, unspecified type (Primary Dx) Discharge Disposition: Home or Self Care from Last 3 Months Surgical History Surgery Date Site/Laterality Comments RIGHT COLECTOMY Medical History Medical History Date Comments Acute ST segment elevation m yocardial infarction (CMS/HCC V24, CMS/HCC V28) 03/01/2019 [03/01/2019] (I2 1.3) Acute STEMI Chronic coronary artery disease 04/04/2024 80% distal LCx stenosis noted on cath in 2018 in the [place]. Similar findings noted on cath at [facility] in 2020 Essential hypertension 04/04/2024 Gastroesophageal [...] Description 12/19/2024 9:40 AM EDT Office Visit [facility] - [facility] [address] [facility] [address] [place] [address] Mukund Garcia NP [address] [place] [address] Health Maintenance Due Date Last Done Comments [...] and culture (11/06/2024 2:50 PM EDT) Specific [place] Urine 1.013 1.003 - 1.030 LAB URINALYSIS - AUTOMATED METHOD 11/06/2024 3:21 PM [facility] pH, Urine 6.0 5.0 - 8.0 pH LAB URINALYSIS - AUTOMATED METHOD 11/06/2024 3:21 PM [facility] Leukocytes, Urine Negative Negative LAB URINALYSIS - AUTOMATED METHOD 11/06/2024 3:21 PM [facility] Nitrite, Urine Negative Negative LAB URINALYSIS - AUTOMATED METHOD 11/06/2024 3:21 PM [facility] Protein, Urine Negative <=Trace mg/dL LAB URINALYSIS - AUTOMATED METHOD 11/06/2024 3:21 PM [facility] Glucose, Urine Negative Negative mg/dL LAB URINALYSIS - AUTOMATED METHOD 11/06/2024 3:21 PM [facility] Ketones, Urine Negative Negative mg/dL LAB URINALYSIS - AUTOMATED METHOD 11/06/2024 3:21 PM [facility] Urobilinogen, Urine 0.2 0.2 - 1.0 mg/dL LAB URINALYSIS - AUTOMATED METHOD 11/06/2024 3:21 PM [facility] Bilirubin, Urine Negative Negative LAB URINALYSIS - AUTOMATED METHOD 11/06/2024 3:21 PM [facility] Blood, Urine Negative Negative LAB URINALYSIS - AUTOMATED METHOD 11/06/2024 3:21 PM [facility] Urine Urine specimen obtained by clean catch procedure / Unknown Non-blood Collection / Unknown 11/06/2024 2:50 PM EDT 11/06/2024 3:09 PM EDT Tarasazar Le MD LAB URINE ORDERABLES Final Resu lt Performing Organization Address [facility]/ZIP Co de Phone Number [facility] [address] [place] [address], [place] [phone] * Hua urine culture tube (11/06/2024 2:50 PM EDT) Extra Tube Hold for add-ons. 11/06/2024 5:01 PM EDT [facility] Comment:Auto resulted. Urine Urine specimen obtained by clean catch procedure / Unknown Non-blood Collection / Unknown 11/06/2024 2:50 PM EDT 11/06/2024 3:09 PM EDT Tarasazar Le MD LAB URINE ORDERABLES Final Resu lt Performing Organization Address [facility] Co de Phone Number [facility] [address] [place] [address], [place] [phone] * CT Angio Chest/Abdomen/Pelvis wo and/or w [...] Signed Date: 11/06/2024 15:11 ET Workstation ID: [id number] Transcribed By: Self Edit Transcribed Date: 11/06/2024 [...] was performed utilizing dose reduction techniques. Total [id number] Vasculature: Atherosclerotic plaque throughout the aorta and [...] Signed Date: 11/06/2024 15:11 ET Workstation ID: [id number] Transcribed By: Self Edit Transcribed Date: 11/06/2024 15:00 ET Taras B Rey FREDERICK IMG CT PROCEDURES Final Result * CT [...] Signed Date: 11/06/2024 15:00 ET Workstation ID: [id number] Transcribed By: Self Edit Transcribed Date: 11/06/2024 [...] Signed Date: 11/06/2024 15:00 ET Workstation ID: [id number] Transcribed By: Self Edit Transcribed Date: 11/06/2024 14:55 ET Taras Le MD IMG CT PROCEDURES Final Result * Troponin I high sensitivity (11/06/2024 2:21 PM EDT) Only the most recent of2 resultswithin the time period is included. High Sensitivity Troponin I 6 <=79 ng/L LAB CHEMISTRY METHOD 11/06/2024 3:54 PM EDT [facility] Blood Venous blood specimen / Unknown Venipuncture / Unknown 11/06/2024 2:21 PM EDT 11/06/2024 3:10 PM EDT Narrative [facility] - 11/06/2024 3:54 PM EDT High levels of biotin in samples may falsely decrease hsTroponin values. Use caution when interpreting hsTroponin results in patients taking biotin who exhibit renal impairment (eGFR <60) or in patients taking more than 20 mg/day of biotin. us Taras Le MD LAB BLOOD ORDERABLES Final Resu lt [facility] [address] [place] [address], [place] [phone] * ECG 12 lead (11/06/2024 2:00 PM EDT) Only the most recent of2 resultswithin the time period is included. Ventricular Rate ECG 87 BPM GEMUSE Atrial Rate 87 BPM GEMUSE P-R Interval 212 ms GEMUSE QRS Duration 80 ms GEMUSE Q-T Interval 350 ms GEMUSE QTc 421 ms GEMUSE P Wave Darby 31 degrees GEMUSE T Darby 28 degrees GEMUSE ECG Interpretation Sinus rhythm with 1st degree A-V block Inferior infarct , age undetermined When compared with ECG of 06-NOV-2024 12:54, (unconfirmed) Inferior infarct is now Present Confirmed by MEENU MONZON ([id number]) on 11/07/2024 5:40:25 AM GEMUSE 11/06/2024 2:00 PM EDT 11/07/2024 5:[address] [facility] Luis Daniel Le MD ECG ORDERABLES Final Result GEMUSE * XR [...] Signed Date: 11/06/2024 14:36 ET Workstation ID: [id number] Transcribed By: Self Edit Transcribed Date: 11/06/2024 [...] Signed Date: 11/06/2024 14:36 ET Workstation ID: [id number] Transcribed By: Self Edit Transcribed Date: 11/06/2024 14:35 ET Taras Le MD IMG XR PROCEDURES Final Result * (ABNORMAL) CBC auto differential (11/06/2024 12:58 PM EDT) WBC 11.7(H) 4.8 - 10.8 K/mcL LAB HEMETOLOGY METHOD [facility] RBC 3.80(L) 4.50 - 5.50 M/mcL LAB HEMETOLOGY METHOD [facility]/06[facility]2024 [facility] Hemoglobin 11.2(L) 13.5 - 17.5 g/dL LAB HEMETOLOGY METHOD 11/06/2024 1:28 PM [facility] Hematocrit 34.6(L) 42.0 - 54.0 % LAB HEMETOLOGY METHOD 11/06/2024 1:28 PM EDT [facility] MCV 90.3 79.0 - 98.0 FL LAB HEMETOLOGY METHOD 11/06/2024 1:[facility] MCH 29.2 27.0 - 32.0 pcg LAB HEMETOLOGY METHOD 11/06/2024 1:28 PM [facility] MCHC 32.4 32.0 - 37.0 g/dL LAB HEMETOLOGY METHOD 11/06/2024 1:28 PM EDT [facility] RDW 13.2 11.0 - 15.0 % LAB HEMETOLOGY METHOD 11/06/2024 1:28 PM [facility] Platelets 364 130 - 400 K/mcL LAB HEMETOLOGY METHOD 11/06/2024 1:28 PM [facility] MPV 9.4 7.0 - 11.0 FL LAB HEMETOLOGY METHOD 11/06/2024 1:28 PM [facility] NRBC 0.0 <1.0 % LAB HEMETOLOGY METHOD 11/06/2024 1:28 PM [facility] NRBC Absolute 0.00 <0.10 K/mcL LAB HEMETOLOGY METHOD 11/06/2024 1:28 PM [facility] Neutrophils Relative 66.7 % LAB HEMETOLOGY METHOD 11/06/2024 1:28 PM [facility] Lymphocytes Relative 22.7 % LAB HEMETOLOGY METHOD 11/06/2024 1:28 PM [facility] Monocytes Relative 7.6 % LAB HEMETOLOGY METHOD 11/06/2024 1:28 PM [facility] Eosinophils Relative 1.7 % LAB HEMETOLOGY METHOD 11/06/2024 1:28 PM [facility] Basophils Relative 0.6 % LAB HEMETOLOGY METHOD 11/06/2024 1:28 PM [facility] Immature Granulocytes Relative 0.7 % LAB HEMETOLOGY METHOD 11/06/2024 1:28 PM [facility] Neutrophils Absolute 7.80(H) 1.50 - 7.00 K/mcL LAB HEMETOLOGY METHOD 11/06/2024 1:28 PM [facility] Lymphocytes Absolute 2.65 1.00 - 5.00 K/mcL LAB HEMETOLOGY METHOD 11/06/2024 1:28 PM EDT [facility] Monocytes Absolute 0.89 0.20 - 1.00 K/mcL LAB HEMETOLOGY METHOD 11/06/2024 1:28 PM EDT [facility] Eosinophils Absolute 0.20 0.00 - 0.50 K/mcL LAB HEMETOLOGY METHOD 11/06/2024 1:28 PM EDT [facility] Basophils Absolute 0.07 0.00 - 0.20 K/[facility] LAB HEMETOLOGY METHOD 11/06/2024 1:28 PM EDT [facility] Immature Granulocytes Absolute 0.08(H) 0.00 - 0.03 K/mcL LAB HEMETOLOGY METHOD 11/06/2024 1:28 PM EDT [facility] Blood Venous blood specimen / Unknown Venipuncture / Unknown 11/06/2024 12:58 PM EDT 11/06/2024 1:23 PM EDT us Taras Luis Daniel Le MD LAB BLOOD ORDERABLES Final Resu lt Performing Organization Address City/[facility]/ZIP Co de Phone Number [facility] [address] [place] [address], [place] [phone] * B-type natriuretic peptide (11/06/2024 12:58 PM EDT) BNP 41 <=100 pcg/mL LAB CHEMISTRY METHOD 11/06/2024 2:11 PM EDT [facility] Blood Venous blood specimen / Unknown Venipuncture / Unknown 11/06/2024 12:58 PM EDT 11/06/2024 1:23 PM EDT Tarasazar Le MD LAB BLOOD ORDERABLES Final Resu lt [facility] [address] [place] [address], [place] [phone] * (ABNORMAL) Magnesium (11/06/2024 12:58 PM EDT) Pathologist [facility] Magnesium 1.6(L) 1.9 - 2.6 mg/dL LAB CHEMISTRY METHOD 11/06/2024 2:16 PM EDT [facility] Blood Venous blood specimen / Unknown Venipuncture / Unknown 11/06/2024 12:58 PM EDT 11/06/2024 1:[address] [facility] Luis Daniel Le MD LAB BLOOD ORDERABLES Final Resu lt Performing Organization Address City/[facility]/ZIP Co de Phone Number [facility] [address] [place] [address], [place] [phone] * Lipase (11/06/2024 12:58 PM EDT) [facility] Lipase 60 13 - 75 unit/L LAB CHEMISTRY METHOD 11/06/2024 2:16 PM EDT [facility] Blood Venous blood specimen / Unknown Venipuncture / Unknown 11/06/2024 12:58 PM EDT 11/06/2024 1:23 PM EDT [facility] BLOOD ORDERABLES Final Resu lt Performing Organization Address [facility]/ZIP Co de Phone Number [facility] [address] [place] [address], [place] [phone] * (ABNORMAL) Comprehensive metabolic panel (11/06/2024 12:58 PM EDT) [facility] Sodium 134 133 - 145 mmol/L LAB CHEMISTRY METHOD 11/06/2024 2:16 PM EDT [facility] Potassium 4.5 3.5 - 5.5 mmol/L LAB CHEMISTRY METHOD 11/06/2024 2:16 PM EDT [facility] Chloride 99 96 - 110 mmol/L LAB CHEMISTRY METHOD 11/06/2024 2:16 PM EDT [facility] CO2 28 21 - 32 mmol/L LAB CHEMISTRY METHOD 11/06/2024 2:16 PM [facility] Anion Gap 7 3 - 11 LAB CHEMISTRY METHOD 11/06/2024 2:16 PM [facility] Glucose 167(H) 70 - 100 mg/dL LAB CHEMISTRY METHOD 11/06/2024 2:16 PM [facility] BUN 27(H) 5 - 25 mg/dL LAB CHEMISTRY METHOD 11/06/2024 2:16 PM [facility] Creatinine 1.84(H) 0.70 - 1.30 mg/dL LAB CHEMISTRY METHOD 11/06/2024 2:16 PM [facility] eGFR 37(L) >=60 mL/min/1. 73m2 LAB CHEMISTRY METHOD 11/06/2024 2:16 PM [facility] Comment:Calculation based on the Chronic Kidney Disease Epidemiology Collaboration (CKD-EPI) equation refit without adjustment for race. BUN/Creatinine Ratio 14.7 LAB CHEMISTRY METHOD 11/06/2024 2:16 PM [facility] Calcium 10.0 8.5 - 10.5 mg/dL LAB CHEMISTRY METHOD 11/06/2024 2:16 PM [facility] AST (SGOT) 12 10 - 42 unit/L LAB CHEMISTRY METHOD 11/06/2024 2:16 PM [facility] ALT (SGPT) 22 10 - 60 unit/L LAB CHEMISTRY METHOD 11/06/2024 2:16 PM [facility] Alkaline Phosphatase 81 42 - 121 unit/L LAB CHEMISTRY METHOD 11/06/2024 2:16 PM [facility] Total Protein 7.0 6.0 - 8.0 g/dL LAB CHEMISTRY METHOD 11/06/2024 2:16 PM [facility] Albumin 4.0 3.2 - 5.0 g/dL LAB CHEMISTRY METHOD 11/06/2024 2:16 PM EDT [facility] Total Bilirubin 0.5 0.0 - 1.4 mg/dL LAB CHEMISTRY METHOD 11/06/2024 2:16 PM EDT [facility] Blood Venous blood specimen / Unknown Venipuncture / Unknown 11/06/2024 12:58 PM EDT 11/06/2024 1:23 PM EDT Taras B Rey FREDERICK LAB BLOOD ORDERABLES Final Resu lt [facility] [address] [place] [address], [place] [phone] * (ABNORMAL) Lipid panel with reflex to direct LDL (04/05/2024 5:04 AM EST) Cholesterol 106 0 - 200 mg/dL LAB CHEMISTRY METHOD 04/05/2024 5:52 AM [facility] Triglycerides 141 0 - 150 mg/dL LAB CHEMISTRY METHOD 04/05/2024 5:52 AM EST [facility] HDL 28(L) >=40 mg/dL LAB CHEMISTRY METHOD 04/05/2024 5:52 AM [facility] LDL Calculated 50 0 - 100 mg/dL LAB CHEMISTRY METHOD 04/05/2024 5:52 AM EST [facility] VLDL Cholesterol Ziggy 28.2 mg/dL LAB CHEMISTRY METHOD 04/05/2024 5:52 AM [facility] Non HDL Chol. (LDL+VLDL) 78 <145 mg/dL LAB CHEMISTRY METHOD 04/05/2024 5:52 AM [facility] Chol/HDL Ratio 3.8 0.0 - 4.4 LAB CHEMISTRY METHOD 04/05/2024 5:52 AM [facility] Blood Venous blood specimen / Unknown Venipuncture / Unknown 04/05/2024 5:04 AM EST 04/05/2024 5:25 AM EST Alycia HINDS LAB BLOOD ORDERABLES Final Re sult Performing Organization Address City/[facility]/ZIP Co de Phone Number [facility] [address] [place] [address], [place] [phone] * (ABNORMAL) Hemoglobin A1c (04/04/2024 4:59 PM EST) Hemoglobin A1C 7.8(H) <6.5 % LAB CHEMISTRY METHOD 04/05/2024 1:42 PM EST [facility] Mean Bld Glu Estim. 177 mg/dL LAB CHEMISTRY METHOD 04/05/2024 1:42 PM EST [facility] Blood Venous blood specimen / Unknown Venipuncture / Unknown 04/04/2024 4:59 PM EST 04/04/2024 5:26 PM EST Jason Stevens MD LAB BLOOD ORDERABLES Final Result Performing Organization Address [facility]/ZIP Co de Phone Number [facility] [address] [place] [address], [place] [phone] from Last 3 Months or Most Recently Relevant to Health Maintenance [place] [address] Member Subscriber Plan / Payer ( fective 2024-Present) Name:Keanu Evangelista Relation to Subscriber:Self Name:Keanu Evangelista Payer ID:[id number] Group ID:[id number] Type:Not on file Address: [place] [address] [address] [id number] GENERIC Advance Directives Documents on File Type Date Recorded Patient Counsel Expl anation Advance Directives and Livin g [...] currently active code status orders. Care Teams Broadcasting Equipment Mechanic Relationship Specialty Start Date End Date Pastora Salazar DO [address] [place] [address] PCP - General Family Medicine 11/21/24
--- OUTSIDE RECORDS SUMMARY | 2024-12-18 08:52 | XMS_ITS | Clinical Summary ---
Author Organization [facility] Address [address] [facility] [address] [place] [address] Phone Care Team Providers Care Corn Cutter Operator Name Role Phone Vera, Ruth Hargrove DIGITAL ARCHIVIST Primary Care Provider [phone] Cathie Escamilla MD Unavailable Keanu Min MD Unavailable Melinda Fry CNP Unavailable Sara Sharma RN Unavailable [phone] Lonnie Keller MD Unavailable Victoriano Montesinos MD Unavailable [phone] Allergies No known active allergies Medications metFORMIN [...] mortality. 2 which in clinical study from [facility] 2016 is suggestive of a 10.1% 30-day risk of , [place], or cardiac arrest. In addition, while patient [...] mortality. 2 which in clinical study from [facility] 2016 is suggestive of a 10.1% 30-day risk of , [place], or cardiac arrest. In addition, while patient [...] [place]. Similar findings noted on cath at [facility] in 2020 Assessment & Plan (03/28/2024 11:40 AM EST): See HPI. Some typical but some atypical features. Will check a nuclear stress test. Will also empirically start Imdur. Potential side effects reviewed With regards to his nuclear stress, he resides in [place] and requests that the test be done at [facility]. Will try to facilitate this for [...] Due Hepatitis B, unspecified formulation 02/23/2016, 10/02/2015,02/11/2015 INFLUENZA, SPLIT VIRUS, TRIV ALENT W/ PRESERVATIVE IM 02/23/2016,02/02/2015,07/04/2014,04/23 Influenza High-Dose Quadriva lent Preservative Free IM 03/04/2022,02/16/2021,03/27/2020 Influenza High-Dose Trivalen t Preservative Free IM 05/20/2019 Influenza, Unspecified Formulation 05/23,03/01/2010,01/21/2009,03/05,05/15/2007,03/16/2007,06/14/2006 Pneumococcal conjugate PCV13 [...] DIABETIC EYE EXAM 10/09/2023 COVID-19 VACCINE ( season) 2024 04/20/2022, 04/07/2021, 07/08/2020, Additional [...] EST) SODIUM 138 136 - 145 mmol/L [facility] POTASSIUM 4.8 3.4 - 5.1 mmol/L [facility] CHLORIDE 102 98 - 107 mmol/L [facility] CO2 24 22 - 31 mmol/L [facility] BUN 24(H) 6 - 23 mg/dL [facility] CREATININE 1.61(H) 0.50 - 1.20 mg/dL [facility] GLUCOSE 144(H) 70 - 100 mg/dL [facility] ALBUMIN 4.3 3.5 - 5.2 g/dL [facility] TOTAL PROTEIN 7.6 6.4 - 8.3 g/dL [facility] CALCIUM 9.3 8.8 - 10.7 mg/dL [facility] ALKALINE PHOSPHATASE 113 40 - 129 U/L [facility] TOTAL BILIRUBIN 0.6 0.2 - 1.2 mg/dL [facility] AST 33 <41 U/L [facility] ALT 29 <42 U/L [facility] GLOBULIN 3.3 2.3 - 4.2 g/dL [facility] EGFR 43(L) >59 mL/min/1.7 3m2 [facility] Comment:Estimated glomerular filtration rate calculated using the CKD-EPI refit equation. ANION GAP 12 7 - 17 mmol/L [facility] Blood 04/09/2024 10:1 0 AM EST 04/09/2024 10:11 AM EST us Keanu Min MD LAB BLOOD ORDERABLES Fi nal Result [facility] [address] [place] [address], [place] [phone] from Last 3 Months or Most Recently Relevant to Health Maintenance Insurance MEDICARE PART [place] MED[place]ARE PART A & [place] MEDIC[place] PART [place] & [place] & [place] & B [facility] MEDICARE PART A & B [facility] Care Teams Corn Cutter Operator Relationship Specialty Start Date End Date Ruth Gamez NP [address] [place] [address] PCP - General Family Medicine 02/05/20 Cathie Escamilla MD [address] [place] [address] Referring Physician General Surgery 09/12/22 Keanu Min MD [address] [place] [id number] [email or web address] Oncologist Medical Oncology 09/12/22 Melinda Fry CNP [address] [place] [phone] [email or web address] 10/09/23 Sara Sharma, RN [address] [place] [phone] [email or web address] Registered Nurse 10/09/23 Lonnie Keller MD [address] [place] [phone] Complaint Adjuster Cardiology 10/09/23 Victoriano Montesinos MD [address] [place] [id number] Consulting Provider Gastroenterology 10/09/23 Additional Source Comments The information contained in this document represents components of the legal health record. It is not the complete legal health record.[facility]
== END 2024-12-18 08:39 | disposition home or self-care (01) ==
LOC: HO.HMGCX 08:38
PROVIDERS: PCP Family Medicine; Visit Provider Family Medicine
DX: R14.0 Abdominal distension (gaseous) (principal)
CPT/HCPCS: 76700

== ENCOUNTER → 2024-12-18 08:53 | Outpatient (BNV) | payer OTHER, SELFPAY | PROVIDERS: PCP Family Medicine; Visit Provider Radiology Diagnostic Radiology | DX: R14.0 Abdominal distension (gaseous) (principal) | CPT/HCPCS: 76700 ==

== ENCOUNTER → 2025-01-01 08:02 | Outpatient (REF) | payer OTHER, SELFPAY ==
--- NOTE | ~2025-01-01 | NM_ITS ---
EXAMINATION: UT RADIONUCLIDE SOLID FOOD GASTRIC EMPTYING 4-HOUR STUDY CLINICAL INFORMATION: ABDOMINAL DISTENTION COMPARISON: There are no prior studies available for comparison. TECHNIQUE: A standard meal consisting of 4 oz of Egg Beaters brand tagged with 1.0 mCi Tc-99m Sulfur Colloid, 6 oz water and 1 slice of toast with jelly was administered orally to the patient. Images were obtained using a dual head gamma camera in the anterior and posterior projections over of the stomach immediately post ingestion and at hourly intervals up to 4 hours post ingestion. The anterior and posterior counts at each time interval were averaged using the geometric mean and expressed as percentage of the immediate post ingestion counts. FINDINGS: There is visualization of activity in the stomach immediately post ingestion. As the study progresses, there is clearance of activity from the stomach and visualization of progressively increasing small bowel activity. By the end of the study, there is almost no retention noted in the stomach. Retention in the stomach at each time interval was: 1 hour 44% (normal 37%-90%) 2 hours 31% (normal 30%-60%) 3 hours 28% 4 hours 8% (normal 0%-10%) NM/UT gastric emptying study IMPRESSION: Normal 4-hour solid food gastric emptying study. For solid meal, rapid gastric emptying is less than 30% at 60 minutes. Delayed gastric emptying criteria is more than 60% remaining at 120 minutes or more than 10% at 240 minutes. The 4-hour value is the best discriminator of a normal or abnormal result). Gastric emptying study grading per JNMT Consensus Recommendations in 2008 (https://tech.snmjournals.org/content/36/1/44) Grade 1 (mild retention): 11-20% at 4h Grade 2 (moderate retention): 21-35% at 4h Grade 3 (severe retention): 36-50% at 4h Grade 4 (very severe retention): >50% retention at 4h Electronically signed by: Jaleel Chau MD 01/01/2025 12:38 PM EDT
--- OUTSIDE RECORDS SUMMARY | 2025-01-01 08:07 | XMS_ITS | Continuity of Care Document ---
Author Name [facility], Medical Address [address] [place] [address] Organization Unknown Address [address] [place] [address] Medications No known medications Problems No known problems
--- OUTSIDE RECORDS SUMMARY | 2025-01-01 08:07 | XMS_ITS | Clinical Summary ---
Author Organization [facility] Address [address] [facility] [address] [place] [phone] Phone Care Team Providers Care Autism Tutor Name Role Phone Vera, Ruth Hargrove ROTATIONAL MOULDING OPERATOR Primary Care Provider [phone] Cathie Escamilla MD Unavailable Keanu Min MD Unavailable Melinda Fry CNP Unavailable Sara Sharma RN Unavailable Lonnie Keller MD Unavailable Victoriano Montesinos MD [...] in clinical study from [facility] 2016 is suggestive of a 10.1% 30-day risk of , [place], or cardiac arrest. In addition, while patient [...] in clinical study from [facility] 2016 is suggestive of a 10.1% 30-day risk of , [place], or cardiac arrest. In addition, while patient [...] Similar findings noted on cath at [facility] in 2020 Assessment & Plan (03/28/2024 11:40 AM EST): See HPI. Some typical but some atypical features. Will check a nuclear stress test. Will also empirically start Imdur. Potential side effects reviewed With regards to his nuclear stress, he resides in [place] and requests that the test be done at [facility]. Will try to facilitate this for [...] EST) SODIUM 138 136 - 145 mmol/L [facility] POTASSIUM 4.8 3.4 - 5.1 mmol/L [facility] CHLORIDE 102 98 - 107 mmol/L [facility] CO2 24 22 - 31 mmol/L [facility] BUN 24(H) 6 - 23 mg/dL [facility] CREATININE 1.61(H) 0.50 - 1.20 mg/dL [facility] GLUCOSE 144(H) 70 - 100 mg/dL [facility] ALBUMIN 4.3 3.5 - 5.2 g/dL [facility] TOTAL PROTEIN 7.6 6.4 - 8.3 g/dL [facility] CALCIUM 9.3 8.8 - 10.7 mg/dL [facility] ALKALINE PHOSPHATASE 113 40 - 129 U/L [facility] TOTAL BILIRUBIN 0.6 0.2 - 1.2 mg/dL [facility] AST 33 <41 U/L [facility] ALT 29 <42 U/L [facility] GLOBULIN 3.3 2.3 - 4.2 g/dL [facility] EGFR 43(L) >59 mL/min/1.7 3m2 [facility] Comment:Estimated glomerular filtration rate calculated using the CKD-EPI refit equation. ANION GAP 12 7 - 17 mmol/L [facility] Blood 04/09/2024 10:1 0 AM EST 04/09/2024 10:11 AM EST us Keanu Min MD LAB BLOOD ORDERABLES Fi nal Result [facility] [address] [place] [address], [facility] [phone] from Last 3 Months or Most Recently Relevant to Health Maintenance Insurance MEDICARE PART A & [place] MED[place] PART A & [place] PART [place] & [place] & [place] & B [facility] MEDICARE PART A & B [facility] Care Teams Autism Tutor Relationship Specialty Start Date End Date Ruth Gamez NP [address] [place] [id number] PCP - General Family Medicine 02/05/20 Cathie Escamilla MD [address] [place] [address] Referring Physician General Surgery 09/12/22 Keanu Min MD [address] [place] [id number] [email or web address] Primary Oncologist Medical Oncology 09/12/22 Melinda Fry CNP [address] [place] [id number] [email or web address] 10/09/23 Sara Sharma, RN [address] [place] [phone] [email or web address] Nurse 10/09/23 Lonnie Keller MD [address] [place] [id number] Laboratory Administrative Director Cardiology 10/09/23 Victoriano Montesinos MD [address] [place] [id number] Consulting Provider Gastroenterology 10/09/23 Additional Source Comments The information contained in this document represents components of the legal health record. It is not the complete legal health record.[facility]
--- OUTSIDE RECORDS SUMMARY | 2025-01-01 08:07 | XMS_ITS | Encounter Summary ---
Author Organization [email or web address] Address [address] [facility] [address] [place] [address] Care Team Providers Care Customer Support Advisor Name Role Phone Pastora Salazar DO Primary Care Provider [phone] Reason for Visit * Reason Onset Date Comments Durable Medical Equipment 12/20/2024 Encounter Details Date Type Department Care Team (Late st Contact Info) Description 12/20/2024 Telephone [facility] MEDICINE [address] [place], [place] [phone] Pastora Salazar DO [address] [place], [place] [phone] Durable Medical Equipment Social History Tobacco Use Types Packs/Day Years [...] AM EDT documented as of this encounter Miscellaneous Notes * Telephone Encounter - Zoey Perez - 12/20/2024 9:25 AM EDT Tc from Tim at [facility] requesting a DME order for pt for a Rolator walker and a shower chair Contact Tim at [phone] ext [phone] documented in this encounter Plan of Treatment Not on file documented as of this encounter Visit Diagnoses Not on filedocumented in this encounter Additional Health Concerns Assessment Noted Time PHQ-9 Depression Total Score: 5 11/14/19 9:09 AM EDT documented as of this encounter Care Teams Customer Support Advisor Relationship Specialty Start Date End Date Pastora Salazar DO [address] [place] [address] PCP - General Family Medicine 11/13/24 documented as of this encounter
--- OUTSIDE RECORDS SUMMARY | 2025-01-01 08:07 | XMS_ITS | Clinical Summary ---
Author Organization [employer] Address [address] [place] [address] 7 [place] [address] Care Team Providers Care Line O Scribe Operator Name Role Phone Pastora Salazar Primary Care Provider [phone] Allergies No known active allergies Medications carvedilol [...] 25 Active Blood Glucose Monitoring Suppl (FreeStyle [place] Lite) w/Device kit USE TO CHECK BLOOD [...] Encounters Date Type Department Care Team Description 12/20/2024 Telephone [facility] [place] [address] Pastora Salazar DO Durable Medical Equipment 12/05/2024 Refill [facility] [place] [address] Pastora Salazar DO 11/26/2024 Telephone [facility] [place] Pastora Salazar DO Results 11/15/2024 Refill [facility] [place] [address] Pastora Salazar DO 11/13/2024 9:00 AM EDT Office Visit [facility] [place] [address] Pastora Salazar DO Type 2 diabetes mellitus with stage 3 chronic kidney disease, without long-term current use of insulin, unspecified whether stage 3a or 3b CKD (CMS/HCC) (Primary Dx); Essential hypertension; Other hyperlipidemia; Anemia, unspecified type; Orthostatic hypotension; Stage 3 chronic kidney disease, unspecified whether stage 3a or 3b CKD (CMS/HCC); 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[place]armiut coronary artery of asa'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; Chronic GERD; Abdominal bloating; Villous adenoma; Healthcare maintenance; BMI 29.0-29.9,adult 11/13/2024 Orders Only [facility] [place] [facility] [place] [address] Pastora Salazar DO 11/13/2024 Travel 11/06/2024 Telephone [facility] [place] [facility] [place] [address] Pastora Salazar DO Chart Prep 11/04/2024 Patient Outreach [facility] [place] [facility] [place] [address] Pastora Salazar DO Care Coordination (CHW outreach for SDOH food needs-referral completed /) 11/04/2024 Patient Outreach [facility] [place] [facility] [place] [address] Jurcsak, Pastora, DO Pre-visit Planning ((SDVT screening positive tobacco screening negative) ) from [...] is your housing situation today? I have marinojerrell guadalupe 11/04/[address] you [...] Procedure Name Priority Date/Time Associated Diagnosis Comments US ABDOMEN COMPLETE Routine 12/18/2024 1 2:10 PM EDT Abdominal bloating CHLAMYDIA/TRICHOMONA S/NEISSERIA GONORRHOEAE, PCR, URINE Routine 11/13/2024 [...] 3b CKD (CMS/HCC) 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carsarmiut coronary artery of [place]a'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 Chronic GERD Abdominal [...] 3b CKD (CMS/HCC) 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carsarmiut coronary artery of asa'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 Chronic GERD Abdominal [...] 3b CKD (CMS/HCC) 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[place] coronary artery of [place]a'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 Chronic GERD Abdominal [...] 3b CKD (CMS/HCC) 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carsarmiut coronary artery of asa'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 Chronic GERD Abdominal [...] 3b CKD (CMS/HCC) 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carsarmiut coronary artery of asa'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 Chronic GERD Abdominal [...] 3b CKD (CMS/HCC) 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carsarmiut coronary artery of asa'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 Chronic GERD Abdominal [...] 3b CKD (CMS/HCC) 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carsarmiut coronary artery of asa'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 Chronic GERD Abdominal [...] 3b CKD (CMS/HCC) 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carsarmiut coronary artery of asa'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 Chronic GERD Abdominal [...] 3b CKD (CMS/HCC) 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carsarmiut coronary artery of asa'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 Chronic GERD Abdominal [...] 3b CKD (CMS/HCC) 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carsarm[place] coronary artery of asa'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 Chronic GERD Abdominal [...] 3b CKD (CMS/HCC) 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carsarm[place]ut coronary artery of asa'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 Chronic GERD Abdominal [...] 3b CKD (CMS/HCC) 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[place] coronary artery of asa'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 Chronic GERD Abdominal [...] 3b CKD (CMS/HCC) 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carsarmiut coronary artery of asa'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 Chronic GERD Abdominal [...] 3b CKD (CMS/HCC) 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carsarmi[place] coronary artery of asa'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 Chronic GERD Abdominal [...] 3b CKD (CMS/HCC) 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carsarmiut coronary artery of asa'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 Chronic GERD Abdominal [...] 3b CKD (CMS/HCC) 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carsarmiut coronary artery of asa'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 Chronic GERD Abdominal [...] 3b CKD (CMS/HCC) 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carsarmiut coronary artery of asa'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 Chronic GERD Abdominal [...] 3b CKD (CMS/HCC) 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carsarmiut coronary artery of asa'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 Chronic GERD Abdominal [...] 3b CKD (CMS/HCC) 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carsarmiut coronary artery of asa'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 Chronic GERD Abdominal [...] (CMS/HCC) from Last 3 Months Results * US Abdomen Complete (12/18/2024 12:10 PM EDT) Anatomical Region Laterality Modality Abdomen Ultrasound 12/18/2024 12:1 0 PM EDT Narrative 12/18/2024 12:12 PM EDT [facility] [address] [place] [address] Ultrasound Report Signed Patient: Keanu Evangelista MR#: [id number] : 1945 Acct:[id number] Age/Sex: 79 / M ADM Date: 12/18/24 Loc: HO.HMGCX Attending Dr: Pastora Salazar DO Ordering Physician: Pastora Salazar DO Date of Service: 12/18/24 Procedure(s): US abdomen complete Accession Number(s): [id number] cc: Pastora Salazar DO CLINICAL HISTORY: ABD BLOATING US abdomen complete Comparison: None provided Findings: The visualized pancreas head is normal. Remaining pancreas is obscured by bowel gas. The visualized aorta and inferior vena cava are normal caliber. The liver is normal in size, right lobe length is 15.2 cm. Mildly increased echogenicity liver parenchyma, no focal lesion is seen. No intrahepatic bile duct dilatation. The common duct is 3 mm in diameter. The gallbladder is normal. Negative sonographic Kimble sign. The main portal vein is patent with antegrade flow. The right kidney is normal, 10.5 cm in length. The left kidney is normal, 10.3 cm in length. The spleen is not well seen, grossly normal, 10.0 cm in length. No free fluid in the abdomen. Impression: Echogenic liver parenchyma, non-specific, commonly seen in the setting of steatosis or chronic hepatitis. Otherwise normal. This document has been electronically signed by: Flory Guillen MD on 12/18/2024 12:10:13 Dictated By: Flory Guillen MD Signed By: <Electronically signed by Flory Guillen MD in OV> 12/18/24 1211 DD/ 1210 TD/TT: 12/18/24 1210 Superintendent Sanitation: Procedure Note Donotuseinterpreter, Image - 12/18/2024 [facility] [place] [address] Ultrasound Report Signed Patient: Jasmine Evangelista#: [id number] : 5Acct:[id number] Age/Sex: 79 / MADM Date: 12/18/24 Loc: HO.HMGCX Attending Dr: Pastora Salazar DO Ordering Physician: Pastora Salazar DO Date of Service: 12/18/24 Procedure(s): US abdomen complete Accession Number(s): [id number] cc: Pastora Salazar DO CLINICAL HISTORY: ABD BLOATING US abdomen complete Comparison: None provided Findings: The visualized pancreas head is normal. Remaining pancreas is obscured by bowel gas. The visualized aorta and inferior vena cava are normal caliber. The liver is normal in size, right lobe length is 15.2 cm. Mildly increased echogenicity liver parenchyma, no focal lesion is seen. No intrahepatic bile duct dilatation. The common duct is 3 mm in diameter. The gallbladder is normal. Negative sonographic Kimble sign. The main portal vein is patent with antegrade flow. The right kidney is normal, 10.5 cm in length. The left kidney is normal, 10.3 cm in length. The spleen is not well seen, grossly normal, 10.0 cm in length. No free fluid in the abdomen. Impression: Echogenic liver parenchyma, non-specific, commonly seen in the setting of steatosis or chronic hepatitis. Otherwise normal. This document has been electronically signed by: Flory Guillen MD on 12/18/2024 12:10:13 Dictated By: Flory Guillen MD Signed By: <Electronically signed by Flory Guillen MD in OV> 12/18/24 1211 DD/ 1210 TD/TT: 12/18/24 1210 Superintendent Sanitation: us Pastora Salazar DO IMG US PROCEDURES Final Resu lt * Chlamydia/Trichomonas/Neisseria gonorrhoeae, PCR, Urine (11/13/2024 10:06 AM EDT) CT PCR, Urine NOT DETECTED Not Detect. [facility] Comment:A not detected test result does [...] NG PCR, Urine NOT DETECTED Not Detect. [facility] Comment:A not detected test result does [...] DO LAB URINE ORDERABLES Final R esult [facility] [address] [place] [phone] * Vitamin D, 25-Hydroxy, Total, Immunoassay (11/13/2024 10:06 AM EDT) Vitamin D 25-OH Total 45.8 >30 ng/mL [facility] Comment: Health Based Reference Values*< 20 ng/mL Yslcdvsen40-55 ng/mL Insufficient> 30 ng/mL Sufficient*Mirtha SANTILLAN. N [...] DO LAB BLOOD ORDERABLES Final R esult [facility] [address] [place] [address] [phone] * (ABNORMAL) Vitamin B12 (Cobalamin) and Folate Panel, Serum (11/13/2024 10:06 AM EDT) Vitamin B12 1,695(H) 200 - 900 pg/mL [facility] Comment:NORMAL 200-900 PG/ML INDETERMINATE 160-199 PG/ML DEFICIENT < 160 PG/ML Folate 15.7 > or = 4.0 ng/mL [facility] Comment:Reference Values:> o r = 4.0 ng/mL< 4.0 ng/mL suggests folate deficiency Methotrexate, aminopterin and folinic acid(leucovorin) are chemotherapeutic agents whose molecularstructures are similar to folate; therefore, the Architectfolate assay cannot be used for patients using these drugs. Blood 11/13/2024 10:0 6 AM EDT 11/13/2024 12:00 PM EDT us Pastora Salazar DO LAB BLOOD ORDERABLES Final R esult Performing Organization Address [facility]/ZIP Co de Phone Number [facility] [address] [place] [address] [phone] * (ABNORMAL) Albumin, Random Urine W/Creatinine (11/13/2024 10:06 AM EDT) Creatinine, Urine 507.57 mg/dL [facility] Microalbumin Urine 579.0 mg/L [facility] Microalbum Creatinine Ratio Ur 114.0(H) <30 ug/mg cr [facility] Comment:Albumin/Creatinine R atio Reference Ranges: Normal: < 30 ug/mg creatinine Microalbuminuria: 30 - 300 ug/mg creatinineClinical Albuminuria: > 300 ug/mg creatinine Urine (Urine, Random) 11/13/2024 10:06 AM EDT 11/13/2024 12:17 PM EDT Pastora Salazar DO LAB URINE ORDERABLES Final R esult Performing Organization Address City/[facility]/ZIP Co de Phone Number [facility] [address] [place] [phone] * Hepatitis C Antibody with Reflex to HCV, RNA, Quantitative, Real-Time PCR (11/13/2024 10:06 AM EDT) Hepatitis C Antibody Nonreactive Nonreactive [facility] Comment:Antibodies to HCV no t detected; does not exclude early acuteHCV infection. Blood Venous blood specimen / Unknown 11/13/2024 10:06 AM EDT 11/13/2024 12:00 PM EDT us Pastora Salazar DO LAB BLOOD ORDERABLES Final R esult Performing Organization Address City/[facility]/ZIP Co de Phone Number [facility] [address] [place] [phone] * Iron And Total Iron Binding Capacity (11/13/2024 10:06 AM EDT) Iron 85 45 - 160 mcg/dL [facility] Total Iron Binding Capacity 284 228 - 428 mcg/dL [facility] Percent Iron Saturation 30 15 - 50 % [facility] Unsaturated Iron Binding 199 ug/dL [facility] Blood Venous blood specimen / Unknown 11/13/2024 10:06 AM EDT 11/13/2024 12:00 PM EDT Pastora Salazar DO LAB BLOOD ORDERABLES Final R esult Performing Organization Address [facility] Co de Phone Number [facility] [address] [place] [phone] * Hepatitis A Antibody, Total (11/13/2024 10:06 AM EDT) Hepatitis A Antibody IgG REACTIVE Nonreactive [facility] Comment:The presence of IgG anti-HAV implies past HAV infection(recent or distant) or vaccination against HAV. Blood Venous blood specimen / Unknown 11/13/2024 10:06 AM EDT 11/13/2024 12:00 PM EDT Pastora Salazar DO LAB BLOOD ORDERABLES Final R esult Performing Organization Address [facility] Co de Phone Number [facility] [address] [place] [phone] * Hepatitis B surface antigen, EIA (11/13/2024 10:06 AM EDT) Hepatitis B Surface Ag Negative Negative [facility] Blood Venous blood specimen / Unknown 11/13/2024 10:06 AM EDT 11/13/2024 12:00 PM EDT Pastora Salazar DO LAB BLOOD ORDERABLES Final R esult Performing Organization Address [facility] Co de Phone Number [facility] [address] [place] [phone] * Hepatitis B Core Antibody, Total (11/13/2024 10:06 AM EDT) Hepatitis B Core Antibody Reactive Nonreactive [facility] Comment:Presumptive evidence of anti-HBc. Blood Venous blood specimen / Unknown 11/13/2024 10:06 AM EDT 11/13/2024 12:00 PM EDT Pastora Salazar DO LAB BLOOD ORDERABLES Final R esult Performing Organization Address [facility]/ZIP Co de Phone Number [facility] [address] [place] [address] [phone] * RPR (Monitor) with Reflex to??Titer (11/13/2024 10:06 AM EDT) RPR (Monitor) w/Refl Titer NON-REACTI VE NON-REACT LUDMILA [facility] Comment:THIS TEST WAS PERFOR MED AT:[employer] [place] [phone] GREGORIO MD Rapid Plasma Reagin Ab Titer TNP [facility] Blood Venous blood specimen / Unknown 11/13/2024 10:06 AM EDT 11/13/2024 11:53 AM EDT Pastora Salazar DO LAB BLOOD ORDERABLES Final R esult Performing Organization Address [facility] Co de Phone Number [facility] [address] [place] [phone] * HIV-1/2 Antigen and Antibodies, Fourth Generation, with Reflexes (11/13/2024 10:06 AM EDT) HIV AB/AG Nonreactive Nonreactive [facility] Comment:HIV-1 p24 Ag and/or HIV-1/HIV-2 Ab not detected.A test result that is nonreactive does not exclude thepossibility of exposure to or infection with HIV-1 and/orHIV-2. Nonreactive results in this assay for individualswith prior exposure to HIV-1 and/or HIV-2 may be due toantigen and antibody levels that are below the limit ofdetection of this assay.The [employer] HIV Ag/Ab Combo assay result andsupplemental assay results should be interpreted inconjunction with the patient's clinical presentation,history and other laboratory results. If the results areinconsistent with clinical evidence, additional testing issuggested to confirm the result. Blood Venous blood specimen / Unknown 11/13/2024 10:06 AM EDT 11/13/2024 12:00 PM EDT Pastora Marie DO LAB BLOOD ORDERABLES Final R esult Performing Organization Address [facility]/ZIP Co de Phone Number [facility] [address] [place] [phone] * Hepatitis B Surface Antibody, Qualitative (11/13/2024 10:06 AM EDT) ~Hepatitis B Surface Antibody REACTIVE Nonreactive [facility] Comment:REACTIVE: > 11.99 mI U/mL Blood Venous blood specimen / Unknown 11/13/2024 10:06 AM EDT 11/13/2024 12:00 PM EDT Pastora Marie DO LAB BLOOD ORDERABLES Final R esult Performing Organization Address [facility] Co de Phone Number [facility] [address] [place] [phone] * TSH (11/13/2024 10:06 AM EDT) Pathologist [facility] Thyroid Stimulating Hormone 1.48 0.32 - 4.0 uIU/mL [facility] Comment:TSH 3rd Generation ( [facility]) Blood Venous blood specimen / Unknown 11/13/2024 10:06 AM EDT 11/13/2024 12:00 PM EDT Pastora Marie DO LAB BLOOD ORDERABLES Final R esult Performing Organization Address [facility] Co de Phone Number [facility] [address] [place] [phone] * T4, Free (11/13/2024 10:06 AM EDT) Free T4 (Free Thyroxine) 0.96 0.71 - 1.85 ng/dL [facility] Blood Venous blood specimen / Unknown 11/13/2024 10:06 AM EDT 11/13/2024 12:00 PM EDT Pastora Jacobsseverino DO LAB BLOOD ORDERABLES Final R esult Performing Organization Address City/[facility]/ZIP Co de Phone Number [facility] [address] [place] [phone] * Magnesium (11/13/2024 10:06 AM EDT) Magnesium 1.6 1.6 - 2.6 mg/dL [facility] Blood Venous blood specimen / Unknown 11/13/2024 10:06 AM EDT 11/13/2024 12:00 PM EDT Pastora Jacobsnichelleana LAB BLOOD ORDERABLES Final R esult Performing Organization Address [facility] Co de Phone Number [facility] [address] [place] [phone] * (ABNORMAL) Hemoglobin A1c (11/13/2024 10:06 AM EDT) Hemoglobin A1c 6.2(H) <6.0 % [facility] Comment:Hemoglobin A1C Refer ence Range Adults: 4.8 - 6.0 % Non diabetic: < 6.0 % Goal: < 7.0 %Additional Action Suggested: > 8.0 %Note: Hemoglobin A1c results are invalid for patients with abnormal amounts of HbF. Blood transfusions may impact the HbA1c concentration in the patient sample. Estimated Average Glucose 131 mg/dL [facility] Comment:eAG = Estimated ave rage glucose which is %A1C expressed asaverage glucose, using the formula of the N2P-OnmcplxZwivaxk Glucose study (ADAG), Diabetes Care, Vol.31,#8,Dec. 2007 Blood Venous blood specimen / Unknown 11/13/2024 10:06 AM EDT 11/13/2024 11:53 AM EDT Pastora Salazar DO LAB BLOOD ORDERABLES Final R esult Performing Organization Address City/[facility]/ZIP Co de Phone Number [facility] [address] [place] [phone] * (ABNORMAL) Ferritin (11/13/2024 10:06 AM EDT) Ferritin 19(L) 20 - 250 ng/mL [facility] Blood Venous blood specimen / Unknown 11/13/2024 10:06 AM EDT 11/13/2024 12:00 PM EDT Pastora Salazar DO LAB BLOOD ORDERABLES Final R esult Performing Organization Address [facility] Co de Phone Number [facility] [address] [place] [phone] * Hepatic Function Panel (11/13/2024 10:06 AM EDT) Bilirubin, Total 0.7 0.0 - 1.0 mg/dL [facility] Bilirubin, Direct 0.2 0.0 - 0.5 mg/dL [facility] Aspartate Amino Transferase 30 5 - 37 U/L [facility] Alanine Aminotransferase 20 0 - 40 U/L [facility] Total Protein 7.1 6.5 - 8.0 g/dL [facility] Albumin Level 4.6 3.5 - 5.0 g/dL [facility] Alkaline Phosphatase 73 39 - 117 U/L [facility] Blood Venous blood specimen / Unknown 11/13/2024 10:06 AM EDT 11/13/2024 12:00 PM EDT Pastora Salazar DO LAB BLOOD ORDERABLES Final R esult Performing Organization Address [facility] Co de Phone Number [facility] [address] [place] [phone] * (ABNORMAL) Lipid Panel, Standard (11/13/2024 10:06 AM EDT) Triglycerides 171(H) <150 mg/dL [facility] Comment:Desirable Triglyceri de: less than 150 mg/dLBorderline High Triglyceride 150-199 mg/dLHigh Triglyceride: 200-499 mg/dLVery High Triglyceride: greater than or equal to 5OO mg/dL Cholesterol 96 <200 mg/dL [facility] Comment:Desirable Cholestero l: less than 200 mg/dLBorderline High Cholesterol: 200-239 mg/dLHigh Cholesterol: greater than 239 mg/dL LDL Cholesterol Calculated 41 <100 mg/dL [facility] Comment:Desirable LDL: less than 100 mg/dLNear Optimal/Above Optimal LDL: 110- 129 mg/dLBorderline High LDL: 130-159 mg/dLHigh LDL: 160-189 mg/dLVery High LDL: greater than or equal to 190 mg/dL HDL Cholesterol 21(L) >40 mg/dL [facility] Comment:Desirable HDL: great er than 40 mg/dL Note: This HDL assay may give artificially low results in patients with liver disease. Blood Venous blood specimen / Unknown 11/13/2024 10:06 AM EDT 11/13/2024 12:00 PM EDT us Pastora Salazar DO LAB BLOOD ORDERABLES Final R esult [facility] [address], [place] [phone] * (ABNORMAL) Basic Metabolic Panel (11/13/2024 10:06 AM EDT) Sodium 141 135 - 145 mmol/L [facility] Potassium 4.5 3.3 - 5.1 mmol/L [facility] Chloride 102 96 - 108 mmol/L [facility] Carbon Dioxide 30(H) 22 - 29 mmol/L [facility] Anion Gap 14 12 - 20 [facility] Urea Nitrogen (BUN) 19(H) 9 - 16 mg/dL [facility] Creatinine, Serum 1.54(H) 0.5 - 1.4 mg/dL [facility] Estimated Glomerular Filt Rate 44 [facility] Comment:Chronic Kidney Disea se: Estimated GFR < 60 mL/min/[id number] Kidney Disease: Estimated GFR < 15 mL/min/1.73m2 Glucose 151(H) 60 - 115 mg/dL [facility] Calcium 9.7 8.4 - 10.2 mg/dL [facility] Blood Venous blood specimen / Unknown 11/13/2024 10:06 AM EDT 11/13/2024 12:00 PM EDT Pastora Salazar DO LAB BLOOD ORDERABLES Final R esult [facility] [address] [place] [phone] * (ABNORMAL) POCT HGB A1C (11/13/2024 [...] Media Lot # [id number] Lot# Expiration Date ,670 Blood Capillary blood specimen / Unknown 11/13/2024 9:10 AM EDT Pastora Salazar DO POINT OF CARE TEST ENTER/RIMMA T ORDERABLES Final Result from Last 3 Months Insurance [facility] [employer] (HMO D-SNP) [place] [id number] Care Teams Line O Scribe Operator Relationship Specialty Start Date End Date Pastora Salazar DO [address] [place] [address] PCP - General Family Medicine 11/13/24
--- OUTSIDE RECORDS SUMMARY | 2025-01-01 08:07 | XMS_ITS | Clinical Summary ---
Author Organization [facility] Address [address] [place] [address] Phone Care Team Providers Care Battery Service Technician Name Role Phone Pastora Salazar DO Primary Care Provider [phone] Allergies No known active allergies Medications aspirin [...] 25 026 Active Additional Information Patient not taking.Informant: Family Member, Reported on 12/19/2024 ferrous sulfate 325 mg (65 mg elemental [...] times a day before meals. 11/22/19 25 Active carvediloL (COREG) 3.125 mg tablet Take 1 tablet (3.125 mg total) by mouth 2 (two) times a day with meals. Active losartan (Cozaar) 25 mg tablet Take 1 tablet (25 mg total) by mouth at bedtime. 30 each 11/22/19 025 Discontinued Active Problems Problem Noted Date Diagnosed Date Generalized weakness 11/20/2024 Acute kidney injury superimposed on CKD (CMS/[facility] V24) 04/18/2024 Chest pain 04/04/2024 Assessment & [...] mentioned, ECG showed evidence of the old IA but no acute changes. It is especially reassuring that he has had 2 negative high-sensitivity troponins. In reviewing his history, it almost sounds as though this may be a presentation of a migraine more than anything. If cardiac testing is negative, could consider neurology referral as an outpatient for headache management. Chronic coronary artery disease 04/04/2024 Overview (11/21/2024): - ST elevation IA apparently in 2018; 80% distal left circumflex stenosis noted on cardiac cath in 2019 in the [place] - Repeat cath performed in 2020 at [facility] showing no changes -Recent hospitalization at [facility] in late March into early April where [...] arteries or vertebral arteries. Assessment & Plan (12/19/2024 10:40 AM EDT): No new or worsening anginal symptoms. Patient did have some PVCs on the echocardiogram today however he does not have subjective awareness. I am going to keep him on the carvedilol and discontinue the losartan. Also stay on the baby aspirin and the high-dose atorvastatin. Assessment & Plan (11/21/2024 1:01 PM EDT): [...] doses. Essential hypertension 04/04/2024 Assessment & Plan (12/19/2024 10:43 AM EDT): Patient utilizing the carvedilol 3.125 mg p.o. twice daily in addition to the amlodipine 5 mg p.o. daily, going to discontinue off the losartan. Assessment & Plan (11/21/2024 1:02 PM EDT): [...] upon discharge. Hyperlipidemia 04/04/2024 Assessment & Plan (12/19/2024 10:42 AM EDT): Please stay on the high-dose atorvastatin. Most recent LDL from 8 months prior is 50. This is at target. Assessment & Plan (11/21/2024 1:04 PM EDT): Well-controlled lipid profile on current dose statin. Continue Assessment & Plan (09/09/2024 9:37 AM EDT): Continue on statin. Updating a lipid panel. Orders: Lipid panel; Future Orthostatic hypotension 04/04/2024 Assessment & Plan (12/19/2024 10:42 AM EDT): Longstanding issue orthostatic hypotension. Patient denies any recent falls. Utilizing the midodrine 2.5 mg p.o. 3 times daily with good effect. He was recently switched from carvedilol to losartan, but was switched back during his most recent hospital stay. I am discontinuing the losartan, has a history of CKD, and going to keep him on the low-dose carvedilol. He is utilizing compression stockings now with good effect. We also spoke about staying hydrated particularly in the morning. Needs to change positions slowly. Assessment & Plan (11/21/2024 1:04 PM EDT): [...] have given the patient's son information in [place] about increasing his protein intake. I have [...] his outpatient regimen. Type 2 diabetes mellitus ([facility], [facility] V 28) 12/20/2017 Overview (04/04/2024): [12/20/2017] (E11.9) DIABETES MELLITUS, TYPE 2 Gastroesophageal reflux disease 03/14/2016 Overview (04/04/2024): [03/14/2016] (K21.9) GERD Resolved Problems Problem Noted Date Diagnosed Date Resolved Date Acute ST segment elevation m yocardial infarction ([facility] V[facility], [facility] V28) 03/01/2019 Overview (04/04/2024): [03/01/2019] (I21.3) Acute STEMI Systolic murmur 03/14/2016 04/05/2024 Overview (04/04/2024): [03/14/2016] (I38) Systolic murmur Encounters Date Type Department Care Team Description 12/19/2024 9:40 AM EDT Office Visit [facility] Cardiology [facility] [address] [place] [phone] Mukund Garcia NP Chronic coronary artery disease (Primary Dx); Orthostatic hypotension; Essential hypertension; Mixed hyperlipidemia 11/21/2024 11:00 AM EDT Office Visit [facility] Cardiology [facility] [address] [place] [address] Caridad Abreu NP Orthostatic hypotension (Primary Dx); Chronic coronary artery disease; Essential hypertension; Mixed hyperlipidemia 11/14/2024 Telephone [facility] Cardiology [facility] [address] [place] [phone] Stephanie Jones MD 11/12/2024 Telephone [facility] Cardiology [facility] - [address] [place] [phone] Mukund Garcia NP 11/06/2024 1:21 PM EDT - 11/06/2024 6:07 PM EDT Emergency [facility] [address] [place] [phone] Taras Le MD Chest pain, unspecified type (Primary Dx) Discharge Disposition: Home or Self Care from Last 3 Months Surgical History Surgery Date Site/Laterality Comments RIGHT COLECTOMY Medical History Medical History Date Comments Acute ST segment elevation m yocardial infarction ([facility], [facility] V28) 03/01/2019 [03/01/2019] (I2 1.3) Acute STEMI Chronic coronary artery disease 04/04/2024 80% distal LCx stenosis noted on cath in 2019 in the [place]. Similar findings noted on cath at [facility] 2020 Essential hypertension 04/04/2024 Gastroesophageal reflux [...] Sign Reading Time Taken Comments Blood Pressure 110/70 12/19/2024 9:33 AM EDT Pulse 94 12/19/2024 9:33 AM EDT Temperature 36.5 C (97.7 F) 11/06/2024 12:38 PM EDT Respiratory Rate 16 11/06/2024 12:3 8 PM EDT Oxygen Saturation 94% 12/19/2024 9:33 AM EDT Inhaled Oxygen Concentration - - Weight 83.8 kg (184 lb 12.8 oz) 12/19/2024 9:33 AM EDT Height 170.2 cm (5' 7 ) 12/19/2024 9:33 AM EDT Body Mass Index 28.94 12/19/2024 9:33 AM EDT Plan of Treatment Upcoming Encounters Date Type Department Care Team (Late st Contact Info) Description 03/19/2025 11:10 AM EST Office Visit [facility] [address] [place] [address] Mukund Garcia NP [address] [place] [address] [place] [address] Health Maintenance Due Date Last Done Comments [...] Name Priority Date/Time Associated Diagnosis Comments ECG 12-LEAD Routine 12/19/2024 10:39 AM EDT Chronic coronary artery disease ECG ANNOTATED 11/07/2024 ECG ANNOTATED 11/07/2024 HUA [...] Recently Relevant to Health Maintenance Results * ECG 12 lead (12/19/2024 10:39 AM EDT) Only the most recent of3 resultswithin the time period is included. 12/19/2024 10:1 5 AM EDT us Mukund Garcia NP ECG ORDERABLES Final Result GEMUSE * ECG-Annotated (11/07/2024) Only the most recent of2 resultswithin the time period is included. us Provider Onbase MD ECG ORDERABLES Final Result * Urinalysis with reflex microscopic and culture (11/06/2024 2:50 PM EDT) Specific [place] Urine 1.013 1.003 - 1.030 LAB URINALYSIS - AUTOMATED METHOD 11/06/2024 3:21 PM EDT [facility] pH, Urine 6.0 5.0 - 8.0 pH LAB URINALYSIS - AUTOMATED METHOD 11/06/2024 3:21 PM EDT [facility] Leukocytes, Urine Negative Negative LAB URINALYSIS - AUTOMATED METHOD 11/06/2024 3:21 PM EDT [facility] Nitrite, Urine Negative Negative LAB URINALYSIS - AUTOMATED METHOD 11/06/2024 3:21 PM EDT [facility] Protein, Urine Negative <=Trace mg/dL LAB URINALYSIS - AUTOMATED METHOD 11/06/2024 3:21 PM EDT [facility] Glucose, Urine Negative Negative mg/dL LAB URINALYSIS - AUTOMATED METHOD 11/06/2024 3:21 PM EDT [facility] Ketones, Urine Negative Negative mg/dL LAB URINALYSIS - AUTOMATED METHOD 11/06/2024 3:21 PM T [facility] Urobilinogen, Urine 0.2 0.2 - 1.0 mg/dL LAB URINALYSIS - AUTOMATED METHOD 11/06/2024 3:21 PM EDT [facility] Bilirubin, Urine Negative Negative LAB URINALYSIS - AUTOMATED METHOD 11/06/2024 3:21 PM EDT [facility] Blood, Urine Negative Negative LAB URINALYSIS - AUTOMATED METHOD 11/06/2024 3:21 PM T [facility] Urine Urine specimen obtained by clean catch procedure / Unknown Non-blood Collection / Unknown 11/06/2024 2:50 PM EDT 11/06/2024 3:09 PM EDT us Taras Le MD LAB URINE ORDERABLES Final Resu lt [facility] [address] [place] [address], * Hua urine culture tube (11/06/2024 2:50 PM EDT) Extra Tube Hold for add-ons. 11/06/2024 5:01 PM EDT [facility] Comment:Auto resulted. Urine Urine specimen obtained by clean catch procedure / Unknown Non-blood Collection / Unknown 11/06/2024 2:50 PM EDT 11/06/2024 3:09 PM EDT us Tarasazar Le MD LAB URINE ORDERABLES Final Resu lt [facility] [address] [place] [address], [place] [phone] * CT Angio Chest/Abdomen/Pelvis wo and/or w [...] Signed Date: 11/06/2024 15:11 ET Workstation ID: [id number] Transcribed By: Self Edit Transcribed Date: 11/06/2024 [...] was performed utilizing dose reduction techniques. Total [id number] Vasculature: Atherosclerotic plaque throughout the aorta and [...] Signed Date: 11/06/2024 15:11 ET Workstation ID: [id number] Transcribed By: Self Edit Transcribed Date: 11/06/2024 15:00 ET Taras Luis Daniel Le MD IMG CT PROCEDURES Final Result [...] Signed Date: 11/06/2024 15:00 ET Workstation ID: [id number] Transcribed By: Self Edit Transcribed Date: 11/06/2024 [...] Signed Date: 11/06/2024 15:00 ET Workstation ID: [id number] Transcribed By: Self Edit Transcribed Date: 11/06/2024 14:55 ET us Taras Le MD IMG CT PROCEDURES Final Result * Troponin I high sensitivity (11/06/2024 2:21 PM EDT) Only the most recent of2 resultswithin the time period is included. High Sensitivity Troponin I 6 <=79 ng/L LAB CHEMISTRY METHOD 11/06/2024 3:54 PM EDT [facility] Blood Venous blood specimen / Unknown Venipuncture / Unknown 11/06/2024 2:21 PM EDT 11/06/2024 3:10 PM EDT Narrative [facility] - 11/06/2024 3:54 PM EDT High levels of biotin in samples may falsely decrease hsTroponin values. Use caution when interpreting hsTroponin results in patients taking biotin who exhibit renal impairment (eGFR <60) or in patients taking more than 20 mg/day of biotin. us Taras Le MD LAB BLOOD ORDERABLES Final Resu lt [facility] [address] [place] [address], [place] [phone] * XR Chest 2 Views (11/06/2024 1:52 [...] Signed Date: 11/06/2024 14:36 ET Workstation ID: [id number] Transcribed By: Self Edit Transcribed Date: 11/06/2024 [...] Signed Date: 11/06/2024 14:36 ET Workstation ID: [id number] Transcribed By: Self Edit Transcribed Date: 11/06/2024 14:35 ET Taras Luis Daniel Le MD IMG XR PROCEDURES Final Result * (ABNORMAL) CBC auto differential (11/06/2024 12:58 PM EDT) [facility] WBC 11.7(H) 4.8 - 10.8 K/mcL LAB HEMETOLOGY METHOD 11/06/2024 1:28 PM EDT [facility] RBC 3.80(L) 4.50 - 5.50 M/mcL LAB HEMETOLOGY METHOD 11/06/2024 1:28 PM EDT [facility] Hemoglobin 11.2(L) 13.5 - 17.5 g/dL LAB HEMETOLOGY METHOD 11/06/2024 1:28 PM EDT [facility] Hematocrit 34.6(L) 42.0 - 54.0 % LAB HEMETOLOGY METHOD 11/06/2024 1:28 PM EDT [facility] MCV 90.3 79.0 - 98.0 FL LAB HEMETOLOGY METHOD 11/06/2024 1:28 PM [facility] MCH 29.2 27.0 - 32.0 pcg LAB HEMETOLOGY METHOD 11/06/2024 1:28 PM [facility] MCHC 32.4 32.0 - 37.0 g/dL LAB HEMETOLOGY METHOD 11/06/2024 1:28 PM [facility] RDW 13.2 11.0 - 15.0 % LAB HEMETOLOGY METHOD 11/06/2024 1:28 PM [facility] Platelets 364 130 - 400 K/mcL LAB HEMETOLOGY METHOD 11/06/2024 1:28 PM [facility] MPV 9.4 7.0 - 11.0 FL LAB HEMETOLOGY METHOD 11/06/2024 1:28 PM [facility] NRBC 0.0 <1.0 % LAB HEMETOLOGY METHOD 11/06/2024 1:28 PM [facility] NRBC Absolute 0.00 <0.10 K/mcL LAB HEMETOLOGY METHOD 11/06/2024 1:28 PM [facility] Neutrophils Relative 66.7 % LAB HEMETOLOGY METHOD 11/06/2024 1:28 PM [facility] Lymphocytes Relative 22.7 % LAB HEMETOLOGY METHOD 11/06/2024 1:28 PM [facility] Monocytes Relative 7.6 % LAB HEMETOLOGY METHOD 11/06/2024 1:28 PM [facility] Eosinophils Relative 1.7 % LAB HEMETOLOGY METHOD 11/06/2024 1:28 PM [facility] Basophils Relative 0.6 % LAB HEMETOLOGY METHOD 11/06/2024 1:28 PM [facility] Immature Granulocytes Relative 0.7 % LAB HEMETOLOGY METHOD 11/06/2024 1:28 PM EDT [facility] Neutrophils Absolute 7.80(H) 1.50 - 7.00 K/mcL LAB HEMETOLOGY METHOD 11/06/2024 1:28 PM EDT [facility] Lymphocytes Absolute 2.65 1.00 - 5.00 K/mcL LAB HEMETOLOGY METHOD 11/06/2024 1:28 PM EDT [facility] Monocytes Absolute 0.89 0.20 - 1.00 K/mcL LAB HEMETOLOGY METHOD 11/06/2024 1:28 PM EDT [facility] Eosinophils Absolute 0.20 0.00 - 0.50 K/mcL LAB HEMETOLOGY METHOD 11/06/2024 1:28 PM EDT [facility] Basophils Absolute 0.07 0.00 - 0.20 K/mcL LAB HEMETOLOGY METHOD 11/06/2024 1:28 PM EDT [facility] Immature Granulocytes Absolute 0.08(H) 0.00 - 0.03 K/mcL LAB HEMETOLOGY METHOD 11/06/2024 1:28 PM EDT [facility] Blood Venous blood specimen / Unknown Venipuncture / Unknown 11/06/2024 12:58 PM EDT 11/06/2024 1:23 PM EDT Taras Le MD LAB BLOOD ORDERABLES Final Resu lt [facility] [address] [place] [address], * B-type natriuretic peptide (11/06/2024 12:58 PM EDT) BNP 41 <=100 pcg/mL LAB CHEMISTRY METHOD 11/06/2024 2:11 PM EDT [facility] Blood Venous blood specimen / Unknown Venipuncture / Unknown 11/06/2024 12:58 PM EDT 11/06/2024 1:23 PM EDT Taras Le MD LAB BLOOD ORDERABLES Final Resu lt Performing Organization Address [facility] Co de Phone Number [facility] [address] [place] [address], [place] [phone] * (ABNORMAL) Magnesium (11/06/2024 12:58 PM EDT) Magnesium 1.6(L) 1.9 - 2.6 mg/dL LAB CHEMISTRY METHOD 11/06/2024 2:16 PM EDT [facility] Blood Venous blood specimen / Unknown Venipuncture / Unknown 11/06/2024 12:58 PM EDT 11/06/2024 1:23 PM EDT Tarasazar Le MD LAB BLOOD ORDERABLES Final Resu lt Performing Organization Address [facility] Co de Phone Number [facility] [address] [place] [address], [place] [phone] * Lipase (11/06/2024 12:58 PM EDT) Pathologist [facility] Lipase 60 13 - 75 unit/L LAB CHEMISTRY METHOD 11/06/2024 2:16 PM EDT [facility] Blood Venous blood specimen / Unknown Venipuncture / Unknown 11/06/2024 12:58 PM EDT 11/06/2024 1:23 PM EDT Taras Le MD LAB BLOOD ORDERABLES Final Resu lt Performing Organization Address City/[facility]/ZIP Co de Phone Number [facility] [address] [place] [address], [place] [phone] * (ABNORMAL) Comprehensive metabolic panel (11/06/2024 12:58 PM EDT) Sodium 134 133 - 145 mmol/L LAB CHEMISTRY METHOD 11/06/2024 2:16 PM [facility] Potassium 4.5 3.5 - 5.5 mmol/L LAB CHEMISTRY METHOD 11/06/2024 2:16 PM [facility] Chloride 99 96 - 110 mmol/L LAB CHEMISTRY METHOD 11/06/2024 2:16 PM [facility] CO2 28 21 - 32 mmol/L LAB CHEMISTRY METHOD 11/06/2024 2:16 PM [facility] Anion Gap 7 3 - 11 LAB CHEMISTRY METHOD 11/06/2024 2:16 PM [facility] Glucose 167(H) 70 - 100 mg/dL LAB CHEMISTRY METHOD 11/06/2024 2:16 PM [facility] BUN 27(H) 5 - 25 mg/dL LAB CHEMISTRY METHOD 11/06/2024 2:16 PM [facility] Creatinine 1.84(H) 0.70 - 1.30 mg/dL LAB CHEMISTRY METHOD 11/06/2024 2:16 PM [facility] eGFR 37(L) >=60 mL/min/1. 73m2 LAB CHEMISTRY METHOD 11/06/2024 2:16 PM [facility] Comment:Calculation based on the Chronic Kidney Disease Epidemiology Collaboration (CKD-EPI) equation refit without adjustment for race. BUN/Creatinine Ratio 14.7 LAB CHEMISTRY METHOD 11/06/2024 2:16 PM [facility] Calcium 10.0 8.5 - 10.5 mg/dL LAB CHEMISTRY METHOD 11/06/2024 2:16 PM [facility] AST (SGOT) 12 10 - 42 unit/L LAB CHEMISTRY METHOD 11/06/2024 2:16 PM [facility] ALT (SGPT) 22 10 - 60 unit/L LAB CHEMISTRY METHOD 11/06/2024 2:16 PM [facility] Alkaline Phosphatase 81 42 - 121 unit/L LAB CHEMISTRY METHOD 11/06/2024 2:16 PM EDT [facility] Total Protein 7.0 6.0 - 8.0 g/dL LAB CHEMISTRY METHOD 11/06/2024 2:16 PM EDT [facility] Albumin 4.0 3.2 - 5.0 g/dL LAB CHEMISTRY METHOD 11/06/2024 2:16 PM EDT [facility] Total Bilirubin 0.5 0.0 - 1.4 mg/dL LAB CHEMISTRY METHOD 11/06/2024 2:16 PM EDT [facility] Blood Venous blood specimen / Unknown Venipuncture / Unknown 11/06/2024 12:58 PM EDT 11/06/2024 1:23 PM EDT us Taras B Rey FR[facility]ICK LAB BLOOD ORDERABLES Final Resu lt [facility] [address] [place] [address], [place] [phone] * (ABNORMAL) Lipid panel with reflex to direct LDL (04/05/2024 5:04 AM EST) Cholesterol 106 0 - 200 mg/dL LAB CHEMISTRY METHOD 04/05/2024 5:52 AM [facility] Triglycerides 141 0 - 150 mg/dL LAB CHEMISTRY METHOD 04/05/2024 5:52 AM EST [facility] HDL 28(L) >=40 mg/dL LAB CHEMISTRY METHOD 04/05/2024 5:52 AM [facility] LDL Calculated 50 0 - 100 mg/dL LAB CHEMISTRY METHOD 04/05/2024 5:52 AM [facility] VLDL Cholesterol Ziggy 28.2 mg/dL LAB CHEMISTRY METHOD 04/05/2024 5:52 AM [facility] Non HDL Chol. (LDL+VLDL) 78 <145 mg/dL LAB CHEMISTRY METHOD 04/05/2024 5:52 AM EST [facility] Chol/HDL Ratio 3.8 0.0 - 4.4 LAB CHEMISTRY METHOD 04/05/2024 5:52 AM EST [facility] Blood Venous blood specimen / Unknown Venipuncture / Unknown 04/05/2024 5:04 AM EST 04/05/2024 5:25 AM EST us Alycia HINDS LAB BLOOD ORDERABLES Final Re sult [facility] [address] [place] [address], [place] [phone] * (ABNORMAL) Hemoglobin A1c (04/04/2024 4:59 PM EST) Hemoglobin A1C 7.8(H) <6.5 % LAB CHEMISTRY METHOD 04/05/2024 1:42 PM EST [facility] Mean Bld Glu Estim. 177 mg/dL LAB CHEMISTRY METHOD 04/05/2024 1:42 PM EST [facility] Blood Venous blood specimen / Unknown Venipuncture / Unknown 04/04/2024 4:59 PM EST 04/04/2024 5:26 PM EST us Jason Stevens MD LAB BLOOD ORDERABLES Final Result Performing Organization Address City/[facility]/ZIP Co de Phone Number [facility] [address] [place] [address], [place] [phone] from Last 3 Months or Most Recently Relevant to Health Maintenance Insurance [facility] Member Subscriber Plan / Payer (Ef fective 2024-Present) Name:Keanu Evangelista Relation to Subscriber:Self Name:Keanu Evangelista Payer ID:[id number] Group ID:[id number] Type:Not on file Address: [facility] [address] [address] GENERIC Advance Directives Documents on File Type Date Recorded Patient It Systems Engineer Expl anation Advance Directives and Livin g [...] currently active code status orders. Care Teams Battery Service Technician Relationship Specialty Start Date End Date Pastora Salazar DO [address] [place] [address] PCP - General Family Medicine 11/21/24
== END ==
LOC: HO.NUCMED 08:02
PROVIDERS: PCP Family Medicine; Visit Provider Family Medicine
DX: R14.0 Abdominal distension (gaseous) (principal)
CPT/HCPCS: 78264; A9541

== ENCOUNTER → 2025-01-01 08:30 | Outpatient (BNV) | payer OTHER, SELFPAY | PROVIDERS: PCP Family Medicine; Visit Provider Radiology Diagnostic Radiology | DX: R14.0 Abdominal distension (gaseous) (principal) | CPT/HCPCS: 78264 ==

== ENCOUNTER 2025-03-05 12:59 | Outpatient (AMB) | payer OTHER, SELFPAY ==
[2025-03-05 13:10] VITALS: BP 115/76; PULSE 92; BMI 29.9
--- NOTE | 2025-03-05 13:10 | MHC.OFFVIS ---
Vital Signs 03/05/25 13:10 Height 5 ft 6 in Weight 185 lb 3.013 oz BMI 29.9 BP 115/76 Blood Pressure Location Lt brachial Position Sitting Pulse 92 Intake Visit Reasons: Chronic GERD, Abdominal Bloating, Hx Villous Polyp Intake Note: Keanu presents as a new patient for GERD, abd bloating, and hx of villous polyp. CC: Patient c/o mid abd pain, and epigastric pain after he eats, but not everyday. He reports that he doesn't put too much food in her mouth when eating because if not he feels like he chokes. Drier And Evaporator Operator Required: Yes Drier And Evaporator Operator Language: English Accompanied by: Son Allergies No Known Allergies Allergy (Verified 03/24/25 10:25) HPI HPI Chronic GERD, Abdominal Bloating, Hx Villous Polyp: Details: 80 years old male with past medical history of diabetes, hypertension, chronic kidney disease is here today for initial consultation. Patient was sent to us by his PCP diet patient has been complaining in the past few months with epigastric pain and bloating. It happens 2 to 3 times a week. Patient is not sure when this is happening, cannot correlate if it happens right after he injects Trulicity. Can not pinpoint any particular food. Patient denies any nausea or vomiting. Has been on Trulicity for about a year. Patient had GES done December that was normal. Patient reports that he is moving his bowels daily. 1-2 BMs daily. He feels like he empties his bowels completely. Patient reports that his acid reflux is not very well controlled. He continues to have epigastric burning and reflux. Currently he is on omeprazole 20 mg twice a day. Feels like it is not very well controlled. [facility] Medical History (Updated 03/24/25 @ 10:55 by Cristi Santiago MD) GERD (gastroesophageal reflux disease) History of ST elevation myocardial infarction Type 2 diabetes mellitus Chronic kidney disease Coronary artery disease History of alcohol abuse Chronic gastroesophageal reflux disease Orthostatic hypotension Villous adenoma HLD (hyperlipidemia) Anemia Essential (primary) hypertension Surgical History H/O hemicolectomy H/O colonoscopy H/O cardiac catheterization Family History Mother Diabetes mellitus Social History Household Members: Children Alcohol intake: never Patient Tobacco Use Status: Never used Tobacco service: No Current occupational status: unemployed and other Review of Systems Const Denies weight gain and Denies weight loss ENT Reports no additional complaints, Denies dysphagia and Denies odynophagia Card Reports no additional complaints Resp Reports no additional complaints GI Reports abdominal pain (Epigastric), Denies belching, Denies melena, Reports bloating, Denies change in bowel habits, Denies dysphagia, Denies excessive flatus, Denies dyspepsia, Reports heartburn, Denies diarrhea, Denies loose stools, Denies nausea, Denies odynophagia and Denies vomiting Reports no additional complaints Musc Reports no additional complaints Neuro Reports no additional complaints Psych Reports no additional complaints Endo Reports no additional complaints Physical Exam Vital Signs: Last Vital Signs Pulse 92 03/05/25 13:10 BP 115/76 03/05/25 13:10 BMI result Body Mass Index 29.9 Const General: healthy appearing, no acute distress and well developed Nutritional Appearance: well nourished Orientation/consciousness: patient oriented x3 Resp Effort & Inspection: normal respiratory effort, able to speak in complete sentences, no tracheal deviation and symmetric chest movement Auscultation: clear to auscultation bilaterally Cardio Rate: regular rate GI Inspection: Yes normal to inspection and No distended Palpation (GI): Soft to palpation, not firm, nontender and No hepatosplenomegaly present Auscultation: normal bowel sounds General: Yes no CVA tenderness Back/Spine/Pelvis Back: no CVA tenderness Skin General skin exam: elasticity normal, turgor normal and dry skin Neuro General: patient oriented x3 Psych Appearance: grossly normal Mental Status: mental status grossly normal Results Reviewed Results Reviewed: GES 01/01/2025 FINDINGS: There is visualization of activity in the stomach immediately post ingestion. As the study progresses, there is clearance of activity from the stomach and visualization of progressively increasing small bowel activity. By the end of the study, there is almost no retention noted in the stomach. Retention in the stomach at each time interval was: 1 hour 44% (normal 37%-90%) 2 hours 31% (normal 30%-60%) 3 hours 28% 4 hours 8% (normal 0%-10%) NM/NM gastric emptying study IMPRESSION: Normal 4-hour solid food gastric emptying study. Assessment & Plan Assessment & Plan (1) GERD (gastroesophageal reflux disease): Code(s): K21.9 - Gastro-esophageal reflux disease without esophagitis Category: Medical Qualifiers: Esophagitis presence: esophagitis presence not specified Qualified Code(s): K21.9 - Gastro-esophageal reflux disease without esophagitis (2) Postprandial epigastric pain: Code(s): R10.13 - Epigastric pain (3) Postprandial abdominal bloating: Code(s): R14.0 - Abdominal distension (gaseous) Plan Will check transglutaminase, lipase, vitamin-D, B12 and folate. Patient will be sent for upper GI with barium swallow. Patient will start taking pantoprazole and stop omeprazole. Will add famotidine at bedtime. Patient was encouraged to avoid dietary triggers and late night snacking. Staying upright for minimum 3 hours after meals discussed with patient. Patient was encouraged to pay attention to see if the pain correlates with Trulicity. Return in the office in 3 months, sooner on as needed basis. He is agreeable to this plan and verbalizes understanding of instructions. He was given the opportunity to ask questions and all questions answered Thank you for allowing me to participate in his care Orders: Orders Transglutaminase IgA 03/05/25 R10.9 - Unspecified abdominal pain Vitamin B12 and Folate 03/05/25 R19.7 - Diarrhea, unspecified FL upper GI w air w Ba Swallow 03/05/25 K21.9 - Gastro-esophageal reflux disease without esophagitis Lipase 03/05/25 R10.9 - Unspecified abdominal pain Vitamin D 25-OH (D2 and D3) 03/05/25 E55.9 - Vitamin D deficiency, unspecified Medications: New famotidine (Pepcid) 20 mg PO BEDTIME 30 tabs 3RF K21.9 - Gastro-esophageal reflux disease without esophagitis pantoprazole take one tablet half an hour before breakfast 40 mg PO DAILY 30 tabs 3RF K21.9 - Gastro-esophageal reflux disease without esophagitis Coding Level of Care Code New Pt Level 4 (19740) Diagnoses Gastroesophageal reflux disease, unspecified whether esophagitis present K21.9 Esophagitis presence: esophagitis presence not specified Postprandial epigastric pain R10.13 Postprandial abdominal bloating R14.0 Time Spent (min) 50 Comment 35 minutes spent with patient and additional 15 minutes spent reviewing his records
--- OUTSIDE RECORDS SUMMARY | 2025-03-05 16:29 | XMS_ITS | Data Portability ---
Author Organization [facility] Address [address] [place] [id number] Care Team Providers Care Heat Treater Head Name Role Phone HIM CCA OTHER Assessment Encounter Date Assessment Date Assessment LastModified by Organization Details LastModified Time 12/02/2024 12/02/2024 I provided real -time medical direction via phone for this encounter, and was available for additional phone based assistance as needed. I have reviewed and agree with the Assessment and Plan as documented by the Collective Bargaining Specialist. We discussed the diagnostic uncertainty of home visits and the risk associated with this. The patient given the opportunity to ask questions. [email or web address] Not available 12/02/2024 20:21:01 Plan of Treatment Reminders Order Date Submit Date Provider Last Modified By Organization Details Last Modified Time Details Appointments None recorded. Lab glucose, fingerstick , blood 2024 [id number] [email or web address] 0 [facility], [address] [place] [address], [phone] 20:26:43 Referral None recorded. Procedures None recorded. Surgeries None recorded. Imaging electrocard iogram 2024 025 [email or web address] 0 [facility], [address] [place] [address], [phone] 20:26:43 Medication Orders nitroglycer in 0.4 mg sublingual tablet 2024 025 [email or web address] 0 Not available 20:26:42 aspirin 81 mg chewable tablet 2024 025 [email or web address] 0 Not available 20:26:42 Patient TargetsNo targets recorded. Patient InstructionsNo instructions recorded. Reason for Referral None Reported. Results Created Date Observation Date Name Description Value Unit Range Abnormal Flag Note LastModifiedBy Organization Detail LastModifiedTime 12/03/1912/02/2024 elect nicole bishopgr am No observ ation record ed. [email or web address] [address], [phone] 12/02/2024 21:32:42 Result Notes None recorded. Medical Equipment None Reported. Allergies No known drug allergies Medications Name Sig Start Date Stop Date Status Note LastModified by Organization Details LastModified Time metformin 500 mg tablet TOME MARIO TABLETA (500 MG) POR V A ORAL CON EL DESAYUNO AND WITH EVENING MEAL active Not Available Not Available No t Available atorvastatin 80 mg tablet TOME 1 TABLETA POR V A ORAL TODOS LOS D active Not Available Not Available No t Available carvedilol 6.25 mg tablet TOME 1 TABLETA POR V A ORAL DOS VECES AL D A active Not Available Not Available No t Available carvedilol 12.5 mg tablet TOME 1 TABLETA POR V A ORAL DOS VECES AL D A active Not Available Not Available No t Available FreeStyle Lancets 28 gauge USE TO CHECK BLOOD SUGAR ONCE A DAY active Not Available Not Available No t Available isosorbide mononitrate ER 30 mg tablet,exten ded release 24 hr TOME 1 TABLETA POR V A ORAL TODOS LOS D active Not Available Not Available No t Available meclizine 12.5 mg tablet TOME MARIO TABLETA POR V A ORAL CADA SEIS HORAS CUANDO SEA NECESARIO FOR DIZZINESS active Not Available Not Available No t Available amlodipine 5 mg tablet TAKE 1 TABLET (5 MG) BY MOUTH ONCE PER DAY. active Not Available Not Available No t Available aspirin 81 mg tablet,delay ed release TOME 1 TABLETA POR V A ORAL TODOS LOS D active Not Available Not Available No t Available carvedilol 3.125 mg tablet TAKE 2 TABLETS (6.25 MG TOTAL) BY MOUTH 2 (TWO) TIMES A DAY WITH MEALS. active Not Available Not Available No t Available famotidine 20 mg tablet TOME 1 TABLETA POR V A ORAL TODOS LOS D active Not Available Not Available No t Available trazodone 100 mg tablet TOME 1 TABLETA POR V A ORAL TODOS LOS D AL ACOSTARSE active Not Available Not Available No t Available metformin 1,000 mg tablet TOME 1 TABLETA POR V A ORAL DOS VECES AL D A active Not Available Not Available No t Available valsartan 320 mg tablet TOME 1 TABLETA POR V A ORAL TODOS LOS D active Not Available Not Available No t Available nitroglyceri n 0.4 mg sublingual tablet PLEASE SEE ATTACHED FOR DETAILED DIRECTIONS active Not Available Not Available N ot Available omeprazole 20 mg capsule,alicia yed release TOME 1 C PSULA POR V A ORAL TODOS LOS D active Not Available Not Available No t Available midodrine 2.5 mg tablet TOME MARIO TABLETA (2.5 MG) POR V A ORAL NAYANA VECES AL D A active Not Available Not Available No t Available mirtazapine 15 mg tablet TOME 1 TABLETA POR V A ORAL TODOS LOS D AL ACOSTARSE active Not Available Not Available No t Available ferrous sulfate 325 mg (65 mg iron) tablet,delay ed release TAKE 1 TABLET BY MOUTH WITH BREAKFAST. DO NOT CRUSH, CHEW OR SPLIT. active Not Available Not Available No t Available Gas Relief Extra Strength 125 mg chewable tablet CHEW 1 TABLET (125 MG) EVERY 6 (SIX) HOURS IF NEEDED FOR FLATULENCE. active Not Available Not Available Not Available FreeStyle Lite Strips CHECK BLOOD GLUCOSE ONCE DAILY active Not Available Not Available N ot Available FreeStyle [place] Lite kit USE TO CHECK BLOOD SUGAR THREE TIMES A DAY active Not Available Not Available Not Available melatonin 5 mg tablet TOME 1 TABLETA POR V A ORAL TODOS LOS D AL ACOSTARSE active Not Available Not Available No t Available Gavilax 17 gram/dose oral powder MIX 17 GRAMS IN 8 OUNCES WATER/JUICE DAILY NEEDED FOR CONSTIPATIO N active Not Available Not Available No t Available Senexon-S 8.6 mg-50 mg tablet TOME DOS TABLETAS POR V A ORAL TODOS LOS D active Not Available Not Available No t Available Jardiance 10 mg tablet TOME 1 TABLETA POR VIA ORAL TODOS LOS GAMING active Not Available Not Available No t Available Trulicity 1.5 mg/0.5 mL subcutaneous pen injector INJECT 1.5MG SUBCUTANEOU SLY ONCE WEEKLY active Not Available Not Available No t Available Trulicity 0.75 mg/0.5 mL subcutaneous pen injector INJECT 0.5 ML UNDER THE SKIN ONCE WEEKLY active Not Available Not Available Not Available Vitals Date Recorded Oxygen saturation Oxygen saturation in Arterial blood by Pulse oximetry Respiratory rate Heart rate Body height Body weight Body temperature Systolic And Diastolic Provider Name and Address Organization Details Last Updated DateTime 5 98 % 98 % 17 /min 96 /min 152.4 cm 4082.32 8 g 98.6 [degF] 140/72 mm[Hg] Not Available [facility] - production 12:44:32 Social History None recorded. Functional Status None recorded. Mental Status None recorded. Family History Nothing Reported. Medical History No medical history recorded. Past Encounters Encounter ID Performer Location Encounter Start Date Encounter Closed Date Diagnosis/Indication Diagnosis SNOMED-CT Code Diagnosis ICD10 Code Diagnosis IMO Codes Diagnosis Note [id number] Jasmin Velázquez MD [facility] ED Medical [address] [phone] 12/02/2024 12:44:21 12/02/2024 21:22:40 Chest pain 26676853 R07.9 [id number] Patient given 3X 81 mg ASA since he had 81 mg already this morning and medic was able to get an IV inserted. Blood pressure up to 168/88 prior to the administra tion of nitroglyce rin and patient had some relief from the nitroglyce rin x1 . Advised the patient he needed to go in to the ER for evaluation and treatment for possible ACS. Patient and family agreeable, but requested he go to [facility]. Medic called for EMS and they arrived before he could give another nitroglyce rin-BP down to 106/66-EMS said they would give more nitroglyce rin and repeat EKG if patient have continued pain. Report called to Bell@ [facility] ER expect. Copy of the EKG sent with the patient. Fingerstic k nonfasting 102 blood sugar stable Health Concerns Section Related Observation LastModified by Organization Detai ls LastModified Time None Recorded Concern Status LastModified by Organization Details LastModified Time None Recorded Advance Directives Directive None Recorded Payers Insurance Date Sequence Insurance Name Policy Number Policy Carlin Covered Member ID Carlin Member ID Guarantor Name 12/02/2024 1 [facility] - DOS ON OR AFTER 2022 - DUAL ELIGIBLE - HALF-WAY OPTIONS AND ONE CARE (MEDICARE REPLACEMENT/ADV ANTAGE - HMO) Keanu Evangelista [id number] Keanu Evangelista Notes Date Note Type Note Provider Name and Address Organization Details Recorded Time 12/02/2024 text/html ROS as noted in the HPI HPI: Additional PMH: Orthostatic Hypotension, Cardiac Stent79 y.o male complains of Chest PainNurse calling reporting patient is new to them, and patient is complaining of L sided chronic chest pain . Nurse reports patient vitals at [...] to seek emergency care -Jake Jo RN ...................... ...................... ...................... ...................... ...................... ...................... ......... [facility] Nurse Triage Notes (Urbano Jo): Reason For Request: pt has a history of cardiac issues, pt has chest pains currently along with pressure in chest Chief Complaints: Chest Pain PMH: Hypertension, Diabetes Mellitus Type 2 PMH Reviewed at 12/02/2024 - 11:49 Allergies Reviewed at 12/02/2024 - 11:49 ...................... ...................... ...................... ...................... ...................... ...................... ......... Collective Bargaining Specialist Note From Yehuda Jordan: Dispatched to the above address for a 79 y/m with a cc of chest pain. Proper ppe was worn throughout the call. Upon arrival: Pt AOx4 Setswana peaking only greeted [facility] and gave a verbal report. Pt stated [...] for about 1 week and the chest pain gets worse when sitting down. Pt noted that every time he gets chest pain he starts having SOB (no known respiratory issues). Pt stated that he takes multiple BP medications/cardiac, and has been taking all his medications accordingly. Pt stated that he is unsure what to do anymore. Pt noted that he is not on any blood thinners, and does take 1 81 mg baby asa daily. Pt also was noted to have Nitro, but did not take it today. Pt stated that he is not sure what exact medications he take/when to take due to his son being his health care proxy, and his son is in charge of administering his medications to daily. Pt was a poor historian. Pt stated that the chest pain feels like pressure to his sternum, with no change in pain upon palpation. [...] edema noted. Head to toe body assessment: (-) DCAPBTLS. Pt denied to headache/sob/dizziness /nausea/vomiting/blood in urine/constipation/dawit rrhea/difficulty urinating/painful urination/flu like symptoms/fever/ falls. HEENT. skin [...] - nose test normal, no neglect noted. [facility]: ordered to do 12 lead. Successfully done. [facility] then gave orders to administer 3 81 mg ASA (pt took 1 81 mg asa earlier), and .4 mg of Nitro sublingual (both done successfully). After a couple of minutes pt noted that the chest pain slightly decreased to a 4/10 (BP decreased to 106/66). IV established per [facility] request (18g in the left ac), and 911 was called to have pt transferred to [facility] (Pt choice of ER). [facility] transferred pt. [facility] clear. All times approximate. ECG: sent via Image [facility] Lab Orders: electrocardiogram: Performed glucose, fingerstick, blood: Performed [facility] Medication Orders: nitroglycerin 0.4 mg sublingual tablet: Performed aspirin 81 mg chewable tablet: Performed ...................... ...................... ...................... ...................... ...................... ...................... ......... [facility] Consulted: Jasmin Velázquez ...................... ...................... ...................... ...................... ...................... ...................... ......... Disposition: Fulfilled SEGMD: As above. The medic was able to confirm the patient did have aspirin 81 mg this morning. Unsure if he has taken any nitroglycerin since discharge from the hospital. I have no access to his hospital records at [facility] from last week nor does he have a discharge summary. I do have an old record from [facility] ER visit 11/06/2024: [facility]st Medical History:03/01/2019: Acute ST segment elevation myocardial infarction [facility] V28)Comment: [03/01/2019] (I21.3) Acute STEMI04/04/2024: Chronic coronary artery diseaseComment: 80[facility] distal [facility] : Essential [email or web address]/07/2016 : Gastroesophageal reflux diseaseComment: [03/14/2016] (K21.9) GERD04/04/2024: Ijagwcmoxwvhaj23/28/20 24: Orthostatic [id number]/07/2016: Systolic murmurComment: [03/14/2016] (I38) Systolic [id number]/20/2017: Type 2 diabetes mellitus Patient denies diaphoresis/ jaw pain/arm pain with the chest pain. Jasmin Velázquez MD [address] [facility],[address] [facility], [place], [phone], [employer] 12/02/2024 20:26:55
--- OUTSIDE RECORDS SUMMARY | 2025-03-05 16:29 | XMS_ITS | Clinical Summary ---
Author Organization [facility] Address [address] [facility] [address] [place] [address] Phone Care Team Providers Care Passenger Car Inspector Name Role Phone Vera, Ruth Hargrove BUFFER OPERATOR Primary Care Provider [phone] Cathie Escamilla MD Unavailable Keanu Min MD Unavailable Melinda Fry CNP Unavailable Sara Sharma RN Unavailable [phone] Lonnie Keller MD Unavailable [phone] Victoriano Montesinos MD Unavailable Allergies No known [...] mortality. 2 which in clinical study [place] [facility] [place] is suggestive of a 10.1% 30-day risk of , [place], or cardiac arrest. In addition, while patient [...] mortality. 2 which in clinical study from [facility] [place] is suggestive of a 10.1% 30-day risk of , [place], or cardiac arrest. In addition, while patient [...] noted on cath in 2018 in the [place]. Similar findings noted on cath at [facility] in 2020 Assessment & Plan (03/28/2024 11:40 AM EST): See HPI. Some typical but some atypical features. Will check a nuclear stress test. Will also empirically start Imdur. Potential side effects reviewed With regards to his nuclear stress, he resides in [place] and requests that the test be done at [facility]. Will try to facilitate this for [...] Date Last Done Comments DEPRESSION SCREENING 1957 ZOSTER VACCINES (1 of 2) 1995 Adult Td,Tdap Booster 01/21/2019 01/21/2009 RSV VACCINE (1 - 1-dose 75+ series) 01/31/2020 DIABETIC EYE EXAM 10/09/2023 HEMOGLOBIN A1C 10/02/2024 04/04/2024 BLOOD PRESSURE 10/08/2024 04/09/2024 INFLUENZA VACCINE (#1) 2024 2, 02/16/2021, 03/27/2020, Additional history exists COVID-19 VACCINE ( season) 2025 04/20/2022, 04/07/2021, 07/08/2020, Additional history exists CREATININE LEVEL 04/09/2025 04/09/2024, 07/2023, 09/07/2023, Additional [...] EST) SODIUM 138 136 - 145 mmol/L [facility] POTASSIUM 4.8 3.4 - 5.1 mmol/L [facility] CHLORIDE 102 98 - 107 mmol/L [facility] CO2 24 22 - 31 mmol/L [facility] BUN 24(H) 6 - 23 mg/dL [facility] CREATININE 1.61(H) 0.50 - 1.20 mg/dL [facility] GLUCOSE 144(H) 70 - 100 mg/dL [facility] ALBUMIN 4.3 3.5 - 5.2 g/dL [facility] TOTAL PROTEIN 7.6 6.4 - 8.3 g/dL [facility] CALCIUM 9.3 8.8 - 10.7 mg/dL [facility] ALKALINE PHOSPHATASE 113 40 - 129 U/L [facility] TOTAL BILIRUBIN 0.6 0.2 - 1.2 mg/dL [facility] AST 33 <41 U/L [facility] ALT 29 <42 U/L [facility] GLOBULIN 3.3 2.3 - 4.2 g/dL [facility] EGFR 43(L) >59 mL/min/1.7 3m2 [facility] Comment:Estimated glomerular filtration rate calculated using the CKD-EPI refit equation. ANION GAP 12 7 - 17 mmol/L [facility] Blood 04/09/2024 10:1 0 AM EST 04/09/2024 10:11 AM EST us Keanu Min MD LAB BLOOD ORDERABLES nal Result [facility] [address] [place] [address], [facility] [phone] from Last 3 Months or Most Recently Relevant to Health Maintenance Insurance MEDICARE PART A & [place] & [place] MED[place]ARE PART A & [place] MED[place] PART [place] & [place]ARE PART A & [place] MED[place]ARE PART A & B [facility] MEDICARE PART A & B [facility] Care Teams Passenger Car Inspector Relationship Specialty Start Date End Date Ruth Gamez NP [address] [place] [address] [place] [address] PCP - General Family Medicine 02/05/20 Cathie Escamilla MD [address] [address] [place] [address] Referring Physician General Surgery 09/12/22 Keanu Min MD [address] [place] [address] [email or web address] Primary Oncologist Medical Oncology 09/12/22 Melinda Fry CNP [address] [place] [address] [email or web address] 10/09/23 Sara Sharma, RN [address] [place] [address] [email or web address] Registered Nurse 10/09/23 Lonnie Keller MD [address] [place] [address] Public Policy Coordinator Cardiology 10/09/23 Victoriano Montesinos MD [address] [place] [id number] Consulting Provider Gastroenterology 10/09/23 Additional Source Comments The information contained in this document represents components of the legal health record. It is not the complete legal health record.[facility]
--- OUTSIDE RECORDS SUMMARY | 2025-03-05 16:29 | XMS_ITS | Encounter Summary ---
Author Organization [employer] Address [address] [facility] [address] [place] [address] Care Team Providers Care Purchase Request Editor Name Role Phone Pastora Salazar DO Primary Care Provider [phone] Reason for Visit * Reason Onset Date Comments Med Change Request Durable Medical Equipment 02/18/2025 DME: B lood Pressure Monitor Kit Encounter Details Date Type Department Care Team (Late st Contact Info) Description 02/18/2025 Refill [facility] [address] [place], [place] [phone] Pastora Salazar DO [address] [place], [place] [phone] Essential hypertension Social History Tobacco Use Types Packs/Day Years [...] encounter Miscellaneous Notes * Telephone Encounter - Elizabeth Engel - 02/24/2025 10:26 AM EDT DME order for Blood Pressure Monitor Kit was generated and sent via FAX to [facility] with supporting documentation. Confirmation was uploaded to Media. documented in this encounter Plan of Treatment Not on file documented as of this encounter Visit Diagnoses Diagnosis Essential hypertension Unspecified essential hypertension documented in this encounter Additional Health Concerns Assessment Noted Time PHQ-9 Depression Total Score: 5 11/14/19 9:09 AM EDT documented as of this encounter Care Teams Purchase Request Editor Relationship Specialty Start Date End Date Pastora Salazar DO [address] [place] [address] PCP - General Family Medicine 11/13/24 documented as of this encounter
--- OUTSIDE RECORDS SUMMARY | 2025-03-05 16:29 | XMS_ITS | Clinical Summary ---
Author Organization [facility] Address [address] [place] [address] Phone Care Team Providers Care Line Camera Operator Name Role Phone Pastora Salazar DO Primary Care Provider [phone] Allergies No known active allergies Medications aspirin 81 mg EC tablet Take 1 tablet (81 mg total) by mouth daily. Active atorvastatin (LIPITOR) 80 mg tablet Take 1 tablet (80 mg total) by mouth at bedtime. 2 Active Trulicity 0.75 mg/0.5 mL pen injector injection Inject 0.5 mL (0.75 mg total) under the skin 1 (one) time per week. 4 Active mirtazapine (REMERON) 15 mg tablet Take 1 tablet (15 mg total) by mouth at bedtime. 4 Active ferrous sulfate 325 mg (65 mg iron) EC tablet Take 1 tablet (325 mg total) by mouth 1 (one) time each day with breakfast. Do not crush, chew, or split. 90 each 1 5 06/10/19 26 Active Additional Information Patient not taking.Informant: Family [...] (100 mg total) by mouth at bedtime. 5 Active metFORMIN (GLUCOPHAGE) 500 mg tablet Take 1 tablet (500 mg total) by mouth 2 (two) times a day with meals. Active amLODIPine (NORVASC) 5 mg tablet Take 1 tablet (5 mg total) by mouth 1 (one) time each day. 5 11/22/19 26 Active midodrine (PROAMATINE) 2.5 mg tablet Take 1 tablet (2.5 mg total) by mouth 3 (three) times a day before meals. 5 Active carvediloL (COREG) 3.125 mg tablet Take 1 tablet (3.125 mg total) by mouth 2 (two) times a day with meals. Active Active Problems Problem Noted Date Diagnosed Date Generalized weakness 11/20/2024 Acute kidney injury superimposed on CKD (CMS/[facility] V24) 04/18/2024 Chest pain 04/04/2024 Assessment & [...] mentioned, ECG showed evidence of the old VT but no acute changes. It is especially reassuring that he has had 2 negative high-sensitivity troponins. In reviewing his history, it almost sounds as though this may be a presentation of a migraine more than anything. If cardiac testing is negative, could consider neurology referral as an outpatient for headache management. Chronic coronary artery disease 04/04/2024 Overview (11/21/2024): - ST elevation VT apparently in 2019; 80% distal left circumflex stenosis noted on cardiac cath in 2019 in the [place] - Repeat cath performed in 2020 at [facility] showing no changes -Recent hospitalization at [facility] in late March into early April where Dr Schmitt saw him in consultation. He ruled out [...] will discontinue his beta-vero therapy as Dr. Schmitt recommended in prior visits as we have [...] supine hypertension but orthostatic hypotension, which Dr. Schmitt has previously described to the patient and [...] have given the patient's son information in Italian about increasing his protein intake. I have [...] his outpatient regimen. Type 2 diabetes mellitus ([facility] V24, [facility] V 28) 12/20/2017 Overview (04/04/2024): [12/20/2017] (E11.9) DIABETES MELLITUS, TYPE 2 Gastroesophageal reflux disease 03/14/2016 Overview (04/04/2024): [03/14/2016] (K21.9) GERD Resolved Problems Problem Noted Date Diagnosed Date Resolved Date Acute ST segment elevation m yocardial infarction ([facility] V24, [facility] V28) 03/01/2019 Overview (04/04/2024): [03/01/2019] (I21.3) Acute STEMI Systolic murmur 03/14/2016 04/05/2024 Overview (04/04/2024): [03/14/2016] (I38) Systolic murmur Encounters Date Type Department Care Team Description 12/19/2024 9:40 AM EDT Office Visit [facility] [address] [place] [address] Mukund Garcia NP Chronic coronary artery disease (Primary Dx); Orthostatic hypotension; Essential hypertension; Mixed hyperlipidemia from Last 3 Months Surgical History Surgery Date Site/Laterality Comments RIGHT COLECTOMY Medical History Medical History Date Comments Acute ST segment elevation m yocardial infarction (CMS/HCC V24, CMS/HCC V28) 03/01/2019 [03/01/2019] (I2 1.3) Acute STEMI Chronic coronary artery disease 04/04/2024 80% distal LCx stenosis noted on cath in 2018 in the [place]. Similar findings noted on cath at [facility] in 2020 Essential hypertension 04/04/2024 Gastroesophageal [...] Safety Answer Date Record ed Physical Abuse Unrecognized value 04/18/2024 Verbal Abuse Unrecognized value 04/18/2024 Sex and Gender Information Value Date [...] Description 03/19/2025 11:10 AM EST Office Visit [facility] [address] [facility] [address] [place] [phone] Mukund Garcia NP [address] [place] [address] [place] [phone] Health Maintenance Due Date Last Done Comments Diabetes: Annual Foot Exam 1955 Diabetes: Annual Retina Eye Exam 1955 Zoster Vaccines (1 of 2) 01/31/1964 DTaP,Tdap,and Td Vaccines (2 - Td or Tdap) 01/21/2019 01/21/2009 RSV Immunization Adult Patients (1 - 1-dose 75+ series) 01/31/2020 Diabetes: Annual Urine Albumin-Creatinine Ratio (uACR) 04/04/2024 Medicare Annual Wellness Visit 04/04/2024 Social Influencers of Health Screening 04/04/2024 Depression Screening 05/08/2024 COVID-19 Vaccine ( - season) 2025 04/20/2022, 04/07/2021, 07/08/2020, Additional history exists Influenza Vaccine (#1) 2025 2, 02/16/2021, 03/27/2020, Additional history exists Falls Risk [...] 10:39 AM EDT Chronic coronary artery disease COMPREHENSIVE METABOLIC PANEL STAT 11/06/2024 12:58 PM EDT LIPID PANEL WITH REFLEX TO DIRECT LDL Routine 04/05/2024 5:04 AM EST HEMOGLOBIN A1C Add-On 04/04/2024 4:59 PM EST from Last 3 Months or Most Recently Relevant to Health Maintenance Results * ECG 12 lead (12/19/2024 10:39 AM EDT) Pathologist [facility] Ventricular Rate ECG 91 BPM GEMUSE Atrial Rate 91 BPM GEMUSE P-R Interval 208 ms GEMUSE QRS Duration 84 ms GEMUSE Q-T Interval 356 ms GEMUSE QTc 437 ms GEMUSE P Wave [place] 40 degrees GEMUSE R [place] 25 degrees GEMUSE T [place] 62 degrees GEMUSE ECG Interpretation Sinus rhythm with occasional Premature ventricular complexes Nonspecific ST and T wave abnormality Inferior myocardial infarction , age undetermined Abnormal ECG When compared with ECG of 06-NOV-2024 14:00, Premature ventricular complexes are now Present Confirmed by ARTI SCHMITT ([id number]) on 01/14/2025 5:02:20 PM GEMUSE 12/19/2024 10:1 5 AM EDT 01/14/2025 5:02 PM EDT us Mukund Garcia NP ECG ORDERABLES Edited Result - Final GEMUSE * (ABNORMAL) Comprehensive metabolic panel (11/06/2024 12:58 PM EDT) [facility] Sodium 134 133 - 145 mmol/L LAB CHEMISTRY METHOD 11/06/2024 2:16 PM EDT [facility] Potassium 4.5 3.5 - 5.5 mmol/L LAB CHEMISTRY METHOD 11/06/2024 2:16 PM EDT [facility] Chloride 99 96 - 110 mmol/L LAB CHEMISTRY METHOD 11/06/2024 2:16 PM EDT [facility] CO2 28 21 - 32 mmol/L LAB CHEMISTRY METHOD 11/06/2024 2:16 PM EDT [facility] Anion Gap 7 3 - 11 LAB CHEMISTRY METHOD 11/06/2024 2:16 PM EDT [facility] Glucose 167(H) 70 - 100 mg/dL LAB CHEMISTRY METHOD 11/06/2024 2:16 PM [facility] BUN 27(H) 5 - 25 mg/dL LAB CHEMISTRY METHOD 11/06/2024 2:16 PM [facility] Creatinine 1.84(H) 0.70 - 1.30 mg/dL LAB CHEMISTRY METHOD 11/06/2024 2:16 PM [facility] eGFR 37(L) >=60 mL/min/1. 73m2 LAB CHEMISTRY METHOD 11/06/2024 2:16 PM [facility] Comment:Calculation based on the Chronic Kidney Disease Epidemiology Collaboration (CKD-EPI) equation refit without adjustment for race. BUN/Creatinine Ratio 14.7 LAB CHEMISTRY METHOD 11/06/2024 2:16 PM [facility] Calcium 10.0 8.5 - 10.5 mg/dL LAB CHEMISTRY METHOD 11/06/2024 2:16 PM [facility] AST (SGOT) 12 10 - 42 unit/L LAB CHEMISTRY METHOD 11/06/2024 2:16 PM [facility] ALT (SGPT) 22 10 - 60 unit/L LAB CHEMISTRY METHOD 11/06/2024 2:16 PM [facility] Alkaline Phosphatase 81 42 - 121 unit/L LAB CHEMISTRY METHOD 11/06/2024 2:16 PM [facility] Total Protein 7.0 6.0 - 8.0 g/dL LAB CHEMISTRY METHOD 11/06/2024 2:16 PM [facility] Albumin 4.0 3.2 - 5.0 g/dL LAB CHEMISTRY METHOD 11/06/2024 2:16 PM [facility] Total Bilirubin 0.5 0.0 - 1.4 mg/dL LAB CHEMISTRY METHOD 11/06/2024 2:16 PM [facility] Blood Venous blood specimen / Unknown Venipuncture / Unknown 11/06/2024 12:58 PM EDT 11/06/2024 1:23 PM EDT us Taras Le MD LAB BLOOD ORDERABLES Final Resu lt [facility] [address] [place] [address], [place] [phone] * (ABNORMAL) Lipid panel with reflex to direct LDL (04/05/2024 5:04 AM EST) Pathologist [facility] Cholesterol 106 0 - 200 mg/dL LAB CHEMISTRY METHOD 04/05/2024 5:52 AM EST [facility] Triglycerides 141 0 - 150 mg/dL LAB CHEMISTRY METHOD 04/05/2024 5:52 AM EST [facility] HDL 28(L) >=40 mg/dL LAB CHEMISTRY METHOD 04/05/2024 5:52 AM EST [facility] LDL Calculated 50 0 - 100 mg/dL LAB CHEMISTRY METHOD 04/05/2024 5:52 AM EST [facility] VLDL Cholesterol Ziggy 28.2 mg/dL LAB CHEMISTRY METHOD 04/05/2024 5:52 AM EST [facility] Non HDL Chol. (LDL+VLDL) 78 <145 mg/dL LAB CHEMISTRY METHOD 04/05/2024 5:52 AM [facility] Chol/HDL Ratio 3.8 0.0 - 4.4 LAB CHEMISTRY METHOD 04/05/2024 5:52 AM [facility] Blood Venous blood specimen / Unknown Venipuncture / Unknown 04/05/2024 5:04 AM EST 04/05/2024 5:25 AM EST us Alycia HINDS LAB BLOOD ORDERABLES Final Re sult [facility] [address] [place] [address], [place] [phone] * (ABNORMAL) Hemoglobin A1c (04/04/2024 4:59 PM EST) Hemoglobin A1C 7.8(H) <6.5 % LAB CHEMISTRY METHOD 04/05/2024 1:42 PM EST [facility] Mean Bld Glu Estim. 177 mg/dL LAB CHEMISTRY METHOD 04/05/2024 1:42 PM EST [facility] Blood Venous blood specimen / Unknown Venipuncture / Unknown 04/04/2024 4:59 PM EST 04/04/2024 5:26 PM EST us Jason Stevens MD LAB BLOOD ORDERABLES Final Result [facility] [address] [place] [address], from Last 3 Months or Most Recently Relevant to Health Maintenance Insurance [facility] MEDICARE Member Subscriber Plan / Payer (Ef fective 2024-Present) Name:Keanu Boykin Relation to Subscriber:Self Name:Keanu Boykin Payer ID:[id number] Group ID:[id number] Type:Not on file Address: [address] [address] [place] [address] MEDICAID - [place] MEDICARE Advance Directives Documents on File Type Date Recorded 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 Care Teams Line Camera Operator Relationship Specialty Start Date End Date Pastora Salazar DO [address] [place] [address] PCP - General Family Medicine 11/21/24
--- OUTSIDE RECORDS SUMMARY | 2025-03-05 16:29 | XMS_ITS | Clinical Summary ---
Author Organization [employer] Address [address] [place] [address] 7 [place] [address] Care Team Providers Care Audio Tape Librarian Name Role Phone Pastora Salazar Primary Care Provider Allergies No known active allergies Medications carvedilol (Coreg) 3.125 MG tablet Active Trulicity 1.5 MG/0.5ML solution auto-injector INJECT [...] mg by mouth at bedtime. 022 Active amLODIPine (Norvasc) 5 MG tablet Take [...] DAY Active Blood Glucose Monitoring Suppl (FreeStyle Alamo Lite) w/Device kit USE TO CHECK BLOOD SUGAR THREE TIMES A DAY Active Alcohol Swabs (Alcohol Prep) pads 1 each 2 times daily. 100 each 11 025 2025 Active ferrous sulfate 325 (65 Fe) MG EC tablet TAKE 1 TABLET BY MOUTH WITH BREAKFAST. DO NOT CRUSH, CHEW OR SPLIT. 90 tablet 1 Active nitroglycerin (Nitrostat) 0.[address] 1 TABLET UNDER THE TONGUE EVERY 5 MINUTES NEEDED FOR CHEST PAIN 25 tablet 1 Active midodrine (Proamatine) 2.5 MG tablet TOME MAROI TABLETA (2.5 MG) POR VIA ORAL NAYANA VECES AL SHANEKA 270 tablet 1 Active metFORMIN (Glucophage) 500 MG tablet Take 1 tablet (500 mg) by mouth with breakfast and with evening meal. 60 tablet 3 025 2025 Active Blood Pressure kitIndications: Essential hypertension Use to monitor blood pressure 1 kit Active metFORMIN (Glucophage) 500 MG tablet Take 1 tablet (500 mg) by mouth with breakfast and with evening meal. 60 tablet 3 025 2024 Discontinued(R eorder (will not trigger notification to Pharmacy)) midodrine (Proamatine) 2.5 MG tablet Take 1 tablet (2.5 mg) by mouth 3 times daily. 90 tablet 3 025 2024 Discontinued Active Problems Problem Noted [...] Encounters Date Type Department Care Team Description 02/19/[address] [facility] [address] [facility] [place] [place] [address] Pastora Salazar DO Durable Medical Equipment 02/18/[address] [facility] [address] [facility] [place] [address] Pastora Salazar DO Essential hypertension 02/18/[address] [facility] [address] [facility] [place] [address] Pastora Salazar DO Essential hypertension 02/09/[address] [facility] 230 [place] [address] Pastora Salazar DO 02/08/[address] [facility] [address] [facility] [place] [place] [address] Pastora Salazar DO 12/20/[address] [facility] [address] [facility] [place] [address] Pastora Salazar DO Durable Medical Equipment ([facility] DME: Rollator Walker and Shower Chair) 12/05/[address] [facility] [address] [place] [address] Pastora Salazar DO from Last 3 Months Immunizations Immunization Administration [...] series) 01/31/2020 COVID-19 Vaccine ( - season) 2025 Influenza Vaccine (#1) 2025 , 02/16/2021, 03/27/2020, [...] Procedure Name Priority Date/Time Associated Diagnosis Comments VITAMIN B12/FOLATE, SERUM PANEL Routine 03/05/2025 2:10 PM EDT LIPASE Routine 03/05/2025 2:10 PM EDT NM GASTRIC EMPTYING SOLID Routine 01/01/2025 8:30 AM EDT Abdominal bloating US ABDOMEN COMPLETE Routine 12/18/2024 1 2:10 PM EDT Abdominal bloating LIPID PANEL, STANDARD Routine 11/13/2024 10:06 AM EDT Type 2 diabetes mellitus with stage 3 chronic kidney disease, without long-term current use of insulin, unspecified whether stage 3a or 3b CKD (CMS/HCC) Essential hypertension Other hyperlipidemia Anemia, unspecified type Orthostatic hypotension Stage 3 chronic kidney disease, unspecified whether stage 3a or 3b CKD (CMS/HCC) Coronary artery disease involving [place] coronary artery of [place] heart without angina pectoris Chronic GERD Abdominal bloating Villous adenoma BMI 29.0-29.9,adult POCT GLYCATED HEMOGLOBIN, TOTAL Routine 11/13/2024 9:11 AM EDT Type 2 diabetes mellitus with stage 3 chronic kidney disease, without long-term current use of insulin, unspecified whether stage 3a or 3b CKD (CMS/HCC) from Last 3 Months or Most Recently Relevant to Health Maintenance Results * (ABNORMAL) Vitamin B12 (Cobalamin) and Folate Panel, Serum (03/05/2025 2:10 PM EDT) Vitamin B12 1,791(H) 200 - 900 pg/mL [facility] Comment:NORMAL 200-900 PG/ML INDETERMINATE 160-199 PG/ML DEFICIENT < 160 PG/ML Folate 12.2 > or = 4.0 ng/mL [facility] Comment:Reference Values:> o r = 4.0 ng/mL< 4.0 ng/mL suggests folate deficiency Methotrexate, aminopterin and folinic acid(leucovorin) are chemotherapeutic agents whose molecularstructures are similar to folate; therefore, the Architectfolate assay cannot be used for patients using these drugs. 03/05/2025 2:10 PM EDT 03/05/2025 2:10 PM EDT us Generic External Data Provider LAB BLOOD ORDERAB LES Final Result Performing Organization Address [facility] Co de Phone Number [facility] [address] [place] [address] [phone] * Lipase (03/05/2025 2:10 PM EDT) Lipase 52 8 - 78 U/L [facility] 03/05/2025 2:10 PM EDT 03/05/2025 2:10 PM EDT Generic External Data Provider LAB BLOOD ORDERAB LES Final Result Performing Organization Address [facility] de Phone Number [facility] [address] [place] [phone] * NM Gastric Emptying Solid (01/01/2025 8:30 AM EDT) Anatomical Region Laterality Modality Body Nuclear Medicine 01/01/2025 8:30 AM EDT Narrative 01/01/2025 12:40 PM EDT [address] [address] Nuclear Medicine Report Signed Patient: Keanu Evangelista MR#: [id number] : 1945 Acct:[id number] Age/Sex: 79 / M ADM Date: 01/01/25 Loc: [facility] Attending Dr: Pastora Salazar DO Ordering Physician: Pastroa Salazar DO Date of Service: 01/01/25 Procedure(s): IN gastric emptying study Accession Number(s): [id number] cc: Pastora Salazar DO EXAMINATION: IN RADIONUCLIDE SOLID FOOD GASTRIC EMPTYING 4-HOUR STUDY CLINICAL INFORMATION: ABDOMINAL DISTENTION COMPARISON: There are no prior studies available for comparison. TECHNIQUE: A standard meal consisting of 4 oz of Egg Beaters brand tagged with 1.0 mCi Tc-99m Sulfur Colloid, 6 oz water and 1 slice of toast with jelly was administered orally to the patient. Images were obtained using a dual head gamma camera in the anterior and posterior projections over of the stomach immediately post ingestion and at hourly intervals up to 4 hours post ingestion. The anterior and posterior counts at each time interval were averaged using the geometric mean and expressed as percentage of the immediate post ingestion counts. FINDINGS: There is visualization of activity in the stomach immediately post ingestion. As the study progresses, there is clearance of activity from the stomach and visualization of progressively increasing small bowel activity. By the end of the study, there is almost no retention noted in the stomach. Retention in the stomach at each time interval was: 1 hour 44% (normal 37%-90%) 2 hours 31% (normal 30%-60%) 3 hours 28% 4 hours 8% (normal 0%-10%) IN/IN gastric emptying study IMPRESSION: Normal 4-hour solid food gastric emptying study. For solid meal, rapid gastric emptying is less than 30% at 60 minutes. Delayed gastric emptying criteria is more than 60% remaining at 120 minutes or more than 10% at 240 minutes. The 4-hour value is the best discriminator of a normal or abnormal result). Gastric emptying study grading per JNMT Consensus Recommendations in 2008 (https://tech.snmjournals.org/content/36/1/44) Grade 1 (mild retention): 11-20% at 4h Grade 2 (moderate retention): 21-35% at 4h Grade 3 (severe retention): 36-50% at 4h Grade 4 (very severe retention): >50% retention at 4h Electronically signed by: Jaleel Chau MD 01/01/2025 12:38 PM EDT Dictated By: Jaleel Chau MD Signed By: <Electronically signed by Jaleel Chau MD in OV> 01/01/25 1238 DD/ 0830 TD/TT: 01/01/25 1230 Fountain Server: Procedure Note Donotuseinterpreter, Image - 01/01/2025 [place] [address] Nuclear Medicine Report Signed Patient: Jasmine Evangelista#: [id number] : 5Acct:[id number] Age/Sex: 79 / MADM Date: 01/01/25 Loc: [facility] Attending Dr: Pastora Salazar DO Ordering Physician: Pastora Salazar DO Date of Service: 01/01/25 Procedure(s): NM gastric emptying study Accession Number(s): [id number] cc: Pastora Salazar DO EXAMINATION: NM RADIONUCLIDE SOLID FOOD GASTRIC EMPTYING 4-HOUR STUDY CLINICAL INFORMATION: ABDOMINAL DISTENTION COMPARISON: There are no prior studies available for comparison. TECHNIQUE: A standard meal consisting of 4 oz of Egg Beaters brand tagged with 1.0 mCi Tc-99m Sulfur Colloid, 6 oz water and 1 slice of toast with jelly was administered orally to the patient. Images were obtained using a dual head gamma camera in the anterior and posterior projections over of the stomach immediately post ingestion and at hourly intervals up to 4 hours post ingestion. The anterior and posterior counts at each time interval were averaged using the geometric mean and expressed as percentage of the immediate post ingestion counts. FINDINGS: There is visualization of activity in the stomach immediately post ingestion. As the study progresses, there is clearance of activity from the stomach and visualization of progressively increasing small bowel activity. By the end of the study, there is almost no retention noted in the stomach. Retention in the stomach at each time interval was: 1 hour 44% (normal 37%-90%) 2 hours 31% (normal 30%-60%) 3 hours 28% 4 hours 8% (normal 0%-10%) NM/NM gastric emptying study IMPRESSION: Normal 4-hour solid food gastric emptying study. For solid meal, rapid gastric emptying is less than 30% at 60 minutes. Delayed gastric emptying criteria is more than 60% remaining at 120 minutes or more than 10% at 240 minutes. The 4-hour value is the best discriminator of a normal or abnormal result). Gastric emptying study grading per JNMT Consensus Recommendations in 2008 (https://tech.snmjournals.org/content/36/44) Grade 1 (mild retention): 11-20% at 4h Grade 2 (moderate retention): 21-35% at 4h Grade 3 (severe retention): 36-50% at 4h Grade 4 (very severe retention): >50% retention at 4h Electronically signed by: Jaleel Chau MD 01/01/2025 12:38 PM EDT RP Dictated By: Jaleel Chau MD Signed By: <Electronically signed by Jaleel Chau MD in OV> 01/01/25 1238 DD/ 0830 TD/TT: 01/01/25 1230 Fountain Server: us Pastora Salazar DO IMG NM PROCEDURES Final Resu lt * US Abdomen Complete (12/18/2024 12:10 PM EDT) Anatomical Region Laterality Modality Abdomen Ultrasound 12/18/2024 12:1 0 PM EDT Narrative 12/18/2024 12:12 PM EDT [facility] [address] [place] [address] [place] [address] Ultrasound Report Signed Patient: Keanu Evangelista MR#: [id number] : 1945 Acct:[id number] Age/Sex: 79 / M ADM Date: 12/18/24 Loc: HO.HMGCX Attending Dr: Pastora Salazar DO Ordering Physician: Pastora Salazar DO Date of Service: 12/18/24 Procedure(s): US abdomen complete Accession Number(s): [id number] cc: Pastora Salazar DO CLINICAL HISTORY: ABD [...] 12/18/24 1211 DD/ 1210 TD/TT: 12/18/24 1210 Fountain Server: Procedure Note Donotuseinterpreter, Image - 12/18/2024 [facility] [address] [place] [address] [place] [address] Ultrasound Report Signed Patient: Jasmine Evangelista#: [id number] : 5Acct:[id number] Age/Sex: 79 / MADM Date: 12/18/24 Loc: .HMGCX Attending Dr: Pastora Salazar DO Ordering Physician: Pastora Salazar DO Date of Service: 12/18/24 Procedure(s): US abdomen complete Accession Number(s): [id number] cc: Pastora Salazar DO CLINICAL HISTORY: ABD [...] 12/18/24 1211 DD/ 1210 TD/TT: 12/18/24 1210 Fountain Server: us Pastora Salazar DO IMG US PROCEDURES Final Resu lt * (ABNORMAL) Lipid Panel, Standard (11/13/2024 10:06 AM EDT) Triglycerides 171(H) <150 mg/dL [facility] Comment:Desirable Triglyceri de: less than 150 mg/dLBorderline High Triglyceride 150-199 mg/dLHigh Triglyceride: 200-499 mg/dLVery High Triglyceride: greater than or equal to 5OO mg/dL Cholesterol 96 <200 mg/dL [facility] Comment:Desirable Cholestero l: less than 200 mg/dLBorderline High Cholesterol: 200-239 mg/dLHigh Cholesterol: greater than 239 mg/dL LDL Cholesterol Calculated 41 <100 mg/dL [facility] Comment:Desirable LDL: less than 100 mg/dLNear Optimal/Above Optimal LDL: 110- 129 mg/dLBorderline High LDL: 130-159 mg/dLHigh LDL: 160-189 mg/dLVery High LDL: greater than or equal to 190 mg/dL HDL Cholesterol 21(L) >40 mg/dL [facility] Comment:Desirable HDL: great er than 40 mg/dL Note: This HDL assay may give artificially low results in patients with liver disease. Blood Venous blood specimen / Unknown 11/13/2024 10:06 AM EDT 11/13/2024 12:00 PM EDT us Pastora Salazar DO LAB BLOOD ORDERABLES Final R esult [facility] [address] [place] [address] [phone] * (ABNORMAL) POCT HGB A1C (11/13/2024 9:11 AM EDT) Hemoglobin A1C 6.2(A) 4.0 - 5.7 % QC Media Lot # [id number] Lot# Expiration Date ,026 Blood 11/13/2024 9:11 AM EDT Pastora Salazar DO POINT OF CARE TEST ENTER/RIMMA T ORDERABLES Final Result from Last 3 Months or Most Recently Relevant to Health Maintenance Insurance [facility] [employer] (O D-SNP) [place] [id number] Care Teams Audio Tape Librarian Relationship Specialty Start Date End Date Pastora Salazar DO [address] [place] [phone] PCP - General Family Medicine 11/13/24
--- OUTSIDE RECORDS SUMMARY | 2025-03-05 16:29 | XMS_ITS | Encounter Summary ---
Author Organization [employer] Address [address] [facility] [address]t [place] [address] Care Team Providers Care Phone Triage Specialist Name Role Phone Pastora Salazar DO Primary Care Provider [phone] Reason for Visit * Reason Onset Date Comments Durable Medical Equipment 02/19/2025 Encounter Details Date Type Department Care Team ([facility] st Contact Info) Description 02/19/2025 Telephone [facility] [address] [place], [place] [phone] Pastora Salazar DO [address] [place], [place] [phone] Durable Medical Equipment Social History Tobacco Use [...] encounter Miscellaneous Notes * Telephone Encounter - Fritz Fraser - 02/19/2025 12:07 PM EDT Tc from pt son requesting for the DME to be expedited do to pt needing to check his BP everyday. Any questions contact son at [phone] * Telephone Encounter - Fritz Fraser - 02/19/2025 9:41 AM EDT Tc from zaira with [facility] requesting a new blood pressure monitor. documented in this encounter Plan of Treatment Not on file documented as of this encounter Visit Diagnoses Not on filedocumented in this encounter Additional Health Concerns Assessment Noted Time PHQ-9 Depression Total Score: 5 11/14/19 9:09 AM EDT documented as of this encounter Care Teams Phone Triage Specialist Relationship Specialty Start Date End Date Pastora Salazar DO [address] [place] [phone] PCP - General Family Medicine 11/13/24 documented as of this encounter
== END 2025-03-05 13:49 | disposition home or self-care (01) ==
LOC: HO.HGI 13:00
PROVIDERS: PCP Family Medicine; Visit Provider Nurse Practitioner Family
DX: K21.9 Gastro-esophageal reflux disease without esophagitis (principal); R10.13 Epigastric pain; R14.0 Abdominal distension (gaseous)
CPT/HCPCS: 99204

== ENCOUNTER 2025-03-05 12:59 | Outpatient (REF) | payer OTHER, SELFPAY ==
[2025-03-05 15:38] LABS: Lipase 52 U/L (8-78)
[2025-03-05 16:08] LABS: Folate 12.2 ng/mL (> or = 4.0); Vitamin B12 1791 pg/mL (200-900)
[2025-03-09 12:34] LABS: Vitamin D 25-OH, D2 <4 ng/mL; Vitamin D 25-OH, D3 40 ng/mL; Vitamin D 25-OH, Total 40 ng/mL (30-100)
== END 2025-03-05 13:00 | disposition home or self-care (01) ==
LOC: HO.LAB 12:59
PROVIDERS: PCP Family Medicine; Visit Provider Nurse Practitioner Family
DX: K21.9 Gastro-esophageal reflux disease without esophagitis (principal); R10.13 Epigastric pain; R14.0 Abdominal distension (gaseous); E55.9 Vitamin D deficiency, unspecified; R19.7 Diarrhea, unspecified
CPT/HCPCS: 36415; 82306; 82607; 82746; 83690; 86364

== ENCOUNTER 2025-03-24 09:52 | Outpatient (REF) | payer OTHER, SELFPAY ==
[2025-03-24 13:41] LABS: Microalbum/Creatinine Ratio Ur 65.3 ug/mg cr (<30); Total Protein Urine Random 56 mg/dL (<12)
[2025-03-24 13:47] LABS: Hematocrit 37.6 % (42.0-52.0); Hemoglobin 12.1 g/dl (14.0-18.0); Mean Corpuscular HGB Conc 32.2 g/dl (31.0-36.0); Mean Corpuscular Hemoglobin 29.5 pg (27.0-33.0); Mean Corpuscular Volume 91.7 fL (80.0-98.0); NRBC Abs Auto 0.000 X10*3/uL (0.0-0.012); NRBC Pct Auto 0.0 /100WBC (0.0-0.2); Platelet Count 406 X10*3/uL (160-400); Red Blood Count 4.10 X10*6/uL (4.60-5.80); White Blood Count 10.3 X10*3/uL (4.8-10.8)
[2025-03-24 14:10] LABS: Anion Gap 13 (12-20); Blood Urea Nitrogen 25 mg/dL (9-16); Calcium 9.8 mg/dL (8.4-10.2); Carbon Dioxide 27 mmol/L (22-29); Chloride 102 mmol/L (96-108); Estimated Glomerular Filt Rate 49; Potassium 4.6 mmol/L (3.3-5.1); Sodium 137 mmol/L (135-145)
== END 2025-03-24 09:53 | disposition home or self-care (01) ==
LOC: HO.HKASLDS 09:52
PROVIDERS: PCP Family Medicine; Visit Provider Internal Medicine Critical Care Medicine
DX: E11.22 Type 2 diabetes mellitus with diabetic chronic kidney disease (principal); I12.9 Hypertensive chronic kidney disease with stage 1 through stage 4 chronic kidney disease, or unspecified chronic kidney disease; N18.32 Chronic kidney disease, stage 3b; D63.1 Anemia in chronic kidney disease
CPT/HCPCS: 36415; 80048; 82043; 82570; 84156; 85027; 99212

== ENCOUNTER 2025-03-24 09:52 | Outpatient (AMB) | payer OTHER, SELFPAY ==
--- NOTE | 2025-03-24 10:19 | HO.NEPHOV_ITS ---
Vital Signs 03/24/25 10:25 Height 5 ft 6 in Weight 185 lb 4 oz BMI 29.9 BP 100/64 Blood Pressure Location Lt brachial Position Sitting Pulse 94 Pulse Source Pulse Oximeter Pulse Oximetry (%) 96 Oxygen Delivery Method Room Air Intake Visit Reasons: 3 mo follow up-Conf Caramel Cutter Helper Required: Yes Caramel Cutter Helper Language: Geriatrics Physician Services: Caramel Cutter Helper Present Caramel Cutter Helper Name: Sigifredo [id number] Information Interpreted: clinical only Accompanied by: Son Allergies No Known Allergies Allergy (Verified 03/24/25 10:25) HPI Comments Details: 79 years old male with DM, HTN, orthostatic hypotension, CAD with stent, colon surgery Here with son Keanu DM: since 2019, HbA1c 6.1, on Trulicity and metformin 500mg BID Hypertension:for about 6-7 years on amlodipine 5, losartan 25, carvedilol 6.25mg BID. Occasionaly low with orthostatic hypotension, everyday. No family history of kidney problem or kidney stones, no smoking, took advil many years ago now only on tylenol. 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 No paint or lead exposure. [facility] Medical History (Updated 03/24/25 @ 10:55 by Cristi Santiago MD) GERD (gastroesophageal reflux disease) History of ST elevation myocardial infarction Type 2 diabetes mellitus Chronic kidney disease Coronary artery disease History of alcohol abuse Chronic gastroesophageal reflux disease Orthostatic hypotension Villous adenoma HLD (hyperlipidemia) Anemia Essential (primary) hypertension Surgical History H/O hemicolectomy H/O colonoscopy H/O cardiac catheterization Family History Mother Diabetes mellitus Social History Household Members: Children Alcohol intake: never Patient Tobacco Use Status: Never used Tobacco service: No Current occupational status: unemployed and other Review of Systems Const Details: Const : no body aches, no chills and no fatigue Eyes: no blurry vision and no change in vision ENT: no bleeding gums and no change in voice, no dizziness Card: no chest pain, no shortness of breath, no orthopnea, no PND Resp: no cough, no excessive phlegm production, no SOB GI: no abdominal pain and no nausea, no vomiting : no hematuria, no urinary frequency and no difficulty voiding Musc: no abnormal gait, no bone pain Neuro: no abnormal movements, no weakness Psych: no behavioral changes and no change in appetite Endo: no change in body appearance, no cold intolerance, no excessive sweating and no fatigue Physical Exam Vital Signs: Last Vital Signs Pulse 94 03/24/25 10:25 BP 100/64 03/24/25 10:25 Pulse Ox 96 03/24/25 10:25 Oxygen Delivery Method Room Air 03/24/25 10:25 BMI result Body Mass Index 29.9 General: not in any acute distress, comfortable, sitting on the chair Nutritional Appearance: well nourished and weight Eyes: normal position, no icterus Neck: No lymphadenopathy, no thyromegaly Resp: bilateral air entry equal, no added sounds present Cardio: normal S1, S2 heard, no murmur heard, no edema GI: soft, nontender, no guarding, no hepatosplenomegaly : bladder normal to inspection, bladder normal to palpation, no renal angle tenderness Skin: no rashes or lesions noted and elasticity normal Neuro: oriented to person, oriented to place, oriented to time and moves all extremities Results Reviewed Nephrology Results: Hgb, (14.0-18.0) 11.3 g/dl L 03/19/25 WBC, (4.8-10.8) 8.9 X10*3/uL 03/19/25 Plt Count, (160-400) 338 X10*3/uL 03/19/25 Sodium, (135-145) 141 mmol/L 11/13/24 Potassium, (3.3-5.1) 4.5 mmol/L 11/13/24 Chloride, (96-108) 102 mmol/L 11/13/24 Carbon Dioxide, (22-29) 30 mmol/L H 11/13/24 BUN, (9-16) 19 mg/dL H 11/13/24 Creatinine, (0.5-1.4) 1.54 mg/dL H 11/13/24 Calcium, (8.4-10.2) 9.7 mg/dL 11/13/24 Urine Creatinine 507.57 mg/dL 11/13/24 Assessment & Plan Assessment & Plan (1) Chronic kidney disease: Code(s): N18.9 - Chronic kidney disease, unspecified Category: Medical (2) Anemia: Code(s): D64.9 - Anemia, unspecified Category: Medical Plan Chronic kidney disease stage IIIa/b: secondary to - no family history of CKD, no history of renal stones in the past, h/o NSAID use in the past but stopped for about a year. - creatinine 1.54 , GFR 44 - urine protein creatinine ratio: 114 - will get Urinalysis, UACR and UPCR - avoid nephrotoxic medications not limited to NSAIDs, contrast etc. - importance of diet, weight loss, adequate blood pressure control, well explained to patient - will get hepatitis panel, HIV, PERRY, ANCA, complements, SPEP, UPEP, serum free light chains, Hypertension: - target blood pressures less than 130/90 mm Hg - compliance: good - continue carvedilol 6.25mg BID, asked the patient to stop amlodipine. He still has orthostatic hypotension BP while sitting 110/80 standing 88/70mmHg. Anemia of chronic kidney disease: - will get iron, TIBC, ferritin levels Mineral bone disease: - will get calcium, phos, vitamin-D and PTH levels will refer to pain management for back pain Labs were not done from previous visit, so asked him to get it done today and i will give a call if any changes needs to be made Orders: Orders UA and rflx microscopic 6 Months D64.9 - Anemia, unspecified, N18.9 - Chronic kidney disease, unspecified Microalbumin, Random (w Creat) 6 Months D64.9 - Anemia, unspecified, N18.9 - Chronic kidney disease, unspecified Complete Blood Count no Diff 6 Months D64.9 - Anemia, unspecified, N18.9 - Chronic kidney disease, unspecified Parathyroid Hormone Intact 6 Months D64.9 - Anemia, unspecified, N18.9 - Chronic kidney disease, unspecified Basic Metabolic Panel 6 Months D64.9 - Anemia, unspecified, N18.9 - Chronic kidney disease, unspecified Total Protein Urine Random 6 Months D64.9 - Anemia, unspecified, N18.9 - Chronic kidney disease, unspecified IRON PROFILE 6 Months D64.9 - Anemia, unspecified, N18.9 - Chronic kidney disease, unspecified Vitamin D 25-OH Total 6 Months D64.9 - Anemia, unspecified, N18.9 - Chronic kidney disease, unspecified Referrals 2 Pain Management Referral M54.9 - Dorsalgia, unspecified Coding Level of Care Code Est Pt Level 4 (09120) Diagnoses Chronic kidney disease N18.9 Anemia D64.9
[2025-03-24 10:25] VITALS: BP 100/64; PULSE 94; O2SAT 96; BMI 29.9
--- OUTSIDE RECORDS SUMMARY | 2025-03-24 20:33 | XMS_ITS | Data Portability ---
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 I have reviewed and agree with the Assessment and Plan as documented by the Steel Plate Caulker. We discussed the diagnostic uncertainty of home visits and the risk associated with this. The patient given the opportunity to ask questions. [email or web address] Not available 12/02/2024 20:21:01 Plan of Treatment Reminders Order Date Submit Date Provider Last Modified By Organization Details Last Modified Time Details Appointments None recorded. Lab glucose, fingerstick , blood 2024 025 [email or web address] 0 [facility], [address] [place] [address], [phone] 20:26:43 Referral None recorded. Procedures None recorded. Surgeries None recorded. Imaging electrocard iogram 2024 025 [email or web address] 0 [facility], [address] [place] [address], [id number] 20:26:43 Medication Orders nitroglycer in 0.4 mg [...] am No observ ation record ed. [email or web address] [address], [phone] 12/02/2024 21:32:42 Result Notes None recorded. Medical [...] Available Not Available N ot Available FreeStyle [place] Lite kit USE TO CHECK BLOOD SUGAR [...] ICD10 Code Diagnosis IMO Codes Diagnosis Note [id number] Jasmin Velázquez MD [facility] ED Medical [address] [phone] 12/02/2024 12:44:21 12/02/2024 21:22:40 Chest pain [id number] R07.9 [id number] Patient given 3X 81 mg ASA since [...] family agreeable, but requested he go to [facility]. Medic called for EMS and they arrived before he could give another nitroglyce rin-BP down to 106/66-EMS said they would give more nitroglyce rin and repeat EKG if patient have continued pain. Report called to [email or web address] expect. Copy of the EKG sent [...] Carlin Member ID Guarantor Name 12/02/2024 1 [facility] - DOS ON OR AFTER 2022 - DUAL ELIGIBLE - HALF-WAY OPTIONS AND ONE CARE (MEDICARE REPLACEMENT/ADV ANTAGE - HMO) Keanu Evangelista [id number] Keanu Evangelista Notes Date Note Type Note [...] ...................... ...................... ...................... ...................... ...................... ...................... ......... Steel Plate Caulker Note From Yehuda Jordan: Dispatched to the above address for a 79 y/m with a cc of chest pain. Proper ppe was worn throughout the call. Upon arrival: Pt AOx4 Nepali peaking only greeted [facility] and gave a verbal report. Pt stated that about 1 week ago he started to have chest pain. He went to [facility] and was sent home with no [...] - nose test normal, no neglect noted. [facility]: ordered to do 12 lead. Successfully done. [facility] then gave orders to administer 3 81 mg ASA (pt took 1 81 mg asa earlier), and .4 mg of Nitro sublingual (both done successfully). After a couple of minutes pt noted that the chest pain slightly decreased to a 4/10 (BP decreased to 106/66). IV established per [facility] request (18g in the left ac), and 911 was called to have pt transferred to [facility] (Pt choice of ER). [facility] transferred pt. [facility] clear. All times approximate. ECG: sent via Image [facility] [place] Orders: electrocardiogram: Performed glucose, fingerstick, blood: Performed [facility] Medication Orders: nitroglycerin 0.4 mg sublingual tablet: Performed aspirin 81 mg chewable tablet: Performed ...................... ...................... ...................... ...................... ...................... ...................... ......... [facility] Consulted: Jasmin Velázquez ...................... ...................... ...................... ...................... ...................... ...................... ......... Disposition: Fulfilled SEGMD: As above. The medic was able to confirm the patient did have aspirin 81 mg this morning. Unsure if he has taken any nitroglycerin since discharge from the hospital. I have no access to his hospital records at [facility] from last week nor does he have a discharge summary. I do have an old record from [facility] ER visit 11/06/2024: Passt Medical History:03/01/2019: Acute ST segment elevation [facility] infarction [facility] V28)Comment: [03/01/2019] (I21.3) Acute STEMI04/04/2024: Chronic coronary artery diseaseComment: 80[facility] distal [place] [facility] [place] [facility] Similar findings noted on [facility] in : Essential lnylulzmidsb56/07/2016 : Gastroesophageal reflux diseaseComment: [03/14/2016] (K21.9) GERD04/04/2024: Crjholhtxvarnt95/28/20 24: Orthostatic stzdfogqjlr31/07/2016: Systolic murmurComment: [03/14/2016] (I38) Systolic dkauql9112/20/2017: Type 2 diabetes mellitus Patient denies diaphoresis/ jaw pain/arm pain with the chest pain. Jasmin Velázquez MD [address] [facility],[address] [facility], [place], [phone], [email or web address] 12/02/2024 20:26:55
== END 2025-03-24 10:58 | disposition home or self-care (01) ==
LOC: HO.HKAS 09:52
PROVIDERS: PCP Family Medicine; Visit Provider Internal Medicine Critical Care Medicine
DX: N18.9 Chronic kidney disease, unspecified (principal); D64.9 Anemia, unspecified
CPT/HCPCS: 99214